=== PATIENT | female | born 1980 | race Caucasian/White ===

== ENCOUNTER 2017-01-22 00:07 | Emergency (ER) | payer OTHER ==
[~2017-01-22] VITALS: Ht 157.5 cm; Wt 113.4 kg
[2017-01-22] MEDS ORDERED: POTASSIUM CITRA5 MEQ PO (00:28)
[2017-01-22] MEDS ORDERED: PERCOCET 5-3251 EACH PO (00:29)
[2017-01-22] MEDS ORDERED: CIPRO500 MG PO (00:29)
[2017-01-22] MEDS ORDERED: ZOFRAN ODT4 MG SL (00:46)
== END 2017-01-22 00:52 | disposition home or self-care (01) ==
LOC: ED 00:07
DX: R11.2 Nausea with vomiting, unspecified (principal); F41.9 Anxiety disorder, unspecified; F43.10 Post-traumatic stress disorder, unspecified; Z88.1 Allergy status to other antibiotic agents; Z79.899 Other long term (current) drug therapy
CPT/HCPCS: 99283

== ENCOUNTER 2017-04-07 19:42 | Emergency (ER) | payer OTHER ==
[~2017-04-07] VITALS: Ht 157.5 cm; Wt 113.4 kg
[~2017-04-07 19:42] MED LIST: CIPRO500 MG PO; PERCOCET 5-3251 EACH PO; POTASSIUM CITRA5 MEQ PO; ZOFRAN ODT4 MG SL
[2017-04-07] MEDS ORDERED: ALPRAZOLAM1 MG PO (20:26)
== END 2017-04-07 20:51 | disposition home or self-care (01) ==
LOC: ED 19:42
DX: S60.221A Contusion of right hand, initial encounter (principal); Z88.1 Allergy status to other antibiotic agents; W22.01XA Walked into wall, initial encounter
CPT/HCPCS: 73130; 99283

== ENCOUNTER 2017-08-13 11:32 | Emergency (ER) | payer OTHER ==
[~2017-08-13] VITALS: Ht 157.5 cm; Wt 113.4 kg
[~2017-08-13 11:32] MED LIST changes: +ALPRAZOLAM1 MG PO
--- NOTE | 2017-08-13 21:50 | EKG ---
[facility] [address] [place], [place] [address] Signed Normal sinus rhythm Minimal voltage criteria for LVH, may be normal variant Borderline ECG No previous ECGs available Confirmed by MARY BENNETT MD ([id number]) on 08/13/2017 9:50:00 PM Electronically Signed By: MARY BENNETT MD 08/13/17 2150 PATIENT NAME: JEFF ALICEA ILIA Electrocardiogram DATE OF : 78 PHYSICIAN: MARY BENNETT MD REPORT #: [id number] REPORT IS CONFIDENTIAL AND NOT TO BE RELEASED WITHOUT AUTHORIZATION
== END 2017-08-13 14:57 | disposition home or self-care (01) ==
LOC: ED 11:32
DX: E83.52 Hypercalcemia (principal); F43.10 Post-traumatic stress disorder, unspecified; F41.9 Anxiety disorder, unspecified; Z88.1 Allergy status to other antibiotic agents
CPT/HCPCS: 36415; 80053; 81001; 83880; 85025; 87088; 93005; 93010; 99283

== ENCOUNTER 2018-03-21 18:03 | Emergency (ER) | payer OTHER ==
[~2018-03-21] VITALS: Ht 157.5 cm; Wt 104.8 kg
[2018-03-21] MEDS ORDERED: AMOXICILLIN500 MG PO (18:22)
[2018-03-21] MEDS ORDERED: BACTRIM DS TAB1 EACH PO (19:23)
== END 2018-03-21 19:38 | disposition home or self-care (01) ==
LOC: ED 18:03
DX: L03.116 Cellulitis of left lower limb (principal); F41.9 Anxiety disorder, unspecified; F43.10 Post-traumatic stress disorder, unspecified; Z87.442 Personal history of urinary calculi; Z88.1 Allergy status to other antibiotic agents
CPT/HCPCS: 99282

== ENCOUNTER 2019-08-05 08:16 | Emergency (ER) | payer OTHER ==
[~2019-08-05] VITALS: Ht 157.5 cm; Wt 104.8 kg
--- OUTSIDE RECORDS SUMMARY | ~2019-08-05 | XMS | Encounter Summary ---
Demographics + + + | Address | [address] | | | [place] [address] | + + + | Home Phone | | + + + | Preferred Language | Unknown | + + + | Marital Status | Single | + + + | Religion Affiliation | 1013 | + + + | Race | Unknown | + + + | Ethnic Group | Unknown | + + + Author + + + | Author | [facility] | | | and [place] | + + + | Organization | [facility] | | | and [place] | + + + | Address | Unknown | + + + | Phone | Unavailable | + + + Support + + +---------+ + | Name | Relationship | Address | Phone | + + +---------+ + | Maribel Patel | ECON | Unknown | | + + +---------+ + | Leda Sanchez | ECON | Unknown | | + + +---------+ + | Maribel Patel | ECON | Unknown | | + + +---------+ + Care Team Providers + +------+ + | Care Charge Account Clerk Name | Role | Phone | + +------+ + | Chris De La Torre MD | PCP | | + +------+ + Reason for Visit + + + | Reason | Comments | + + + | Appointment | | + + + Encounter Details +--------+ + + + + | Date | Type | Department | Care Team | Description | +--------+ + + + + | 03/16/ | Telephone | [facility] | Jerrell Hightower | Appointment | | 2019 | | [address] | MD [place] [address] | | | | | [place] | [place] | | | | | [address] | [id number] | | | | | [phone] | | | +--------+ + + + + Social History + + + +--------+ + | Tobacco Use | Types | Packs/Day | Years | Date | | | | | Used | | + + + +--------+ + | Former Smoker | Cigarettes | 0.1 | 6 | Quit: 2013 | + + + +--------+ + + +---+---+---+ | Smokeless Tobacco: | | | | | Never Used | | | | + +---+---+---+ + + +---------+ + | Alcohol Use | Drinks/Week | oz/Week | Comments | + + +---------+ + | Yes | | | 2 beers a year | + + +---------+ + + + + | Sex Assigned at | Date Recorded | | | | + + + | Not on file | | + + + + + + + | Job Start Date | Occupation | Industry | + + + + | Not on file | Not on file | Not on file | + + + + + + + + | Travel History | Travel Start | Travel End | + + + + + + | No recent travel history available. | + + documented as of this encounter Plan of Treatment Not on filedocumented as of this encounter Visit Diagnoses Not on filedocumented in this encounter"
--- OUTSIDE RECORDS SUMMARY | ~2019-08-05 | XMS | Encounter Summary ---
Demographics + + + | Address | [address] | | | [place] [address] | + + + | Home Phone | | + + + | Preferred Language | Unknown | + + + | Marital Status | Single | + + + | Amish Affiliation | 1013 | + + + | Race | Unknown | + + + | Ethnic Group | Unknown | + + + Author + + + | Author | [facility] | | | and [place] | + + + | Organization | [facility] | | | [...] Team Providers + +------+ + | Care Polysomnograph Tech Name | Role | Phone | + +------+ + | Chris De La Torre MD | PCP | | + +------+ + Encounter Details +--------+ + + + + | Date | Type | Department | Care Team | Description | +--------+ + + + + | 11/20/ | Episode | [facility] | Glendy Sahu | | | 2017 | Changes | [address] | | | | | [place] | | | | | | [address] | | | | | | [phone] | | | +--------+ + + + + Social History + +-------+ +--------+ + | Tobacco Use | Types | Packs/Day | Years | Date | | | | | Used | | + +-------+ +--------+ + | Former Smoker | | | | Quit: 2013 | + +-------+ +--------+ + + +---+---+---+ | Smokeless Tobacco: | | | | | Never Used | | | | + +---+---+---+ + + +---------+ + | Alcohol Use | Drinks/Week | oz/Week | Comments | + + +---------+ + | Yes | 2 Cans of beer | 2.0 | socially | + + +---------+ + + + [...]
--- OUTSIDE RECORDS SUMMARY | ~2019-08-05 | XMS | Encounter Summary ---
Demographics + + + | Address | [address] | | | [place] [address] | + + + | Home Phone | | + + + | Preferred Language | Unknown | + + + | Marital Status | Single | + + + | Adventist Affiliation | 1013 | + + + | Race | Unknown | + + + | Ethnic Group | Unknown | + + + Author + + + | Author | [facility] | | | and [place] | + + + | Organization | [facility] | | | [...] Team Providers + +------+ + | Care Court Interpreter Name | Role | Phone | + +------+ + PCP | Unavailable | + +------+ + Encounter Details +--------+ + + + + | Date | Type | Department | Care Team | Description | +--------+ + + + + | 09/19/ | Hospital | [facility] | ShelbyDevang | Primary | | 2018 | Encounter | [facility] | MD Sarah [address] | hyperparathyroidism | | | | [address] | [address] | ([facility]) | | | | [place], [place] | [place] [address] | | | | | [address] | [phone] | | | | | [phone] | | | +--------+ + + + + Social History + +-------+ +--------+------+ | Tobacco Use | Types | Packs/Day | Years | Date | | | | | Used | | + +-------+ +--------+------+ | Never Assessed | | | | | + +-------+ +--------+------+ + + + | Sex Assigned at [...] + + documented as of this encounter Last Filed Vital Signs + + + + + | Vital Sign | Reading | Time Taken | Comments | + + + + + | Blood Pressure | 111/75 | 09/19/2017 4:28 PM | | | | | PDT | | + + + + + | Pulse | 71 | 09/19/2017 4:28 PM | | | | | PDT | | + + + + + | Temperature | 36.4 C (97.5 F) | 09/19/2017 4:28 PM | | | | | PDT | | + + + + + | Respiratory Rate | 14 | 09/19/2017 4:28 PM | | | | | PDT | | + + + + + | Oxygen Saturation | - | - | | + + + + + | Inhaled Oxygen | - | - | | | Concentration | | | | + + + + + | Weight | 105.4 kg (232 lb 5.9 | 09/19/2017 4:28 PM | | | | oz) | PDT | | + + + + + | Height | 157.5 cm (5' 2") | 09/19/2017 4:28 PM | | | | | PDT | | + + + + + | Body Mass Index | 42.5 | 09/19/2017 4:28 PM | | | | | PDT | | + + + + + documented in this encounter Medications at Time of Discharge + + + +---------+ + + | Medication | Sig | Dispensed | Refills | Start | End Date | | | | | | Date | | + + + +---------+ + + | | TAKE ONE TABLET BY | | 0 | 09/20/19 | | | HYDROcodone-acetamin | MOUTH EVERY 6 HOURS | | | 18 | 9 | | ophen (NORCO) | NEEDED FOR PAIN | | | | | | 7.5-325 mg per | | | | | | | tablet | | | | | | + + + +---------+ + + documented as of this encounter Progress Notes Conversion Transaction, Provider Unknown - 09/19/2017 4:27 PM PDTFormatting of this note m ight be different from the original. Nurse Progress Note by Ana Jon RN at 09/19/171626 Author: Ana Jon RN Service: (none) Author Type: Registered Nurse Filed: 09/19/178 Date of Service: 09/19/171626 Status: Signed Salesperson [employer]: Ana Jon RN (Registered Nurse) Discharge instructions, including signs and symptoms of surgical site infection, discussed with patient and sister. Prescriptions given and side effects explained (faxed to RX pharmac y to be picked up). Patient and family state understanding. No further questions. Vital s igns stable. Discharged per order. Ana Jon RN 09/19/2017 4:28 PM onver harris Transaction, Provider Unknown - 09/19/2017 3:51 PM PDT Progress Notes by Palak Reynaga RPH at 09/19/17 249 Author: Palak Reynaga RPH Service: Pharmacy Author Type: Pharmacist Filed: 09/19/171550 Date of Service: 09/19/171550 Status: Signed Salesperson [employer]: Palak Reynaga RPH (Pharmacist) Clinical Pharmacy Note: Renal Monitoring Mariela Avalos Medabalime 37 y.o. female Ht Readings from Last 1 Encounters: 09/19/17 1.575 m (5' 2") Wt Readings from Last 1 Encounters: 09/19/17 105.4 kg (232 lb 5.8 oz) Serum creatinine: 0.99 mg/dL 09/19/17 1110 Estimated creatinine clearance: 87.8 mL/min Pharmacy dosing for renal function per Dr. Shelby. Currently, there are no medications needing to be adjusted. Pharmacy will continue to monit or for changes in medication orders and in renal function and adjust accordingly. Palak Reynaga PharmD 09/19/2017 3:50 PM docume nted in this encounter Plan of Treatment Not on filedocumented as of this encounter Procedures + +--------+ + + + | Procedure Name | Priori | Date/Time | Associated Diagnosis | Comments | | | ty | | | | + +--------+ + + + | EXTERNAL LAB: NICA | Routin | 09/19/2017 | | Results for this | | INTACT | e | 2:37 PM | | procedure are in the | | | | PDT | | results section. | + +--------+ + + + | NM RADIOPHARM INJ | Routin | 09/19/2017 | | Results for this | | NON IMAGING | e | 12:26 PM | | procedure are in the | | | | PDT | | results section. | + +--------+ + + + | EXTERNAL LAB: NICA | Routin | 09/19/2017 | | Results for this | | INTACT | e | 11:10 AM | | procedure are in the | | | | PDT | | results section. | + +--------+ + + + | BASIC METABOLIC | Routin | 09/19/2017 | | Results for this | | PANEL | e | 11:10 AM | | procedure are in the | | | | PDT | | results section. | + +--------+ + + + | TISSUE REQUEST FOR | Routin | 09/19/2017 | | Results for this | | PATHOLOGY (NON-ORD) | e | 12:00 AM | | procedure are in the | | | | PDT | | results section. | + +--------+ + + + documented in this encounter Results External Lab: PTH, Intact (09/19/2017 2:37 PM PDT) + + + + + + | Component | Value | Ref Range | Performed | Pathologist | | | | | At | Signature | + + + + + + | PTH Intact | 25.2Comment: RESULTS | 8.7 - 79.6 | EXTERNAL | | | | CALLED TO TOÑA OR | pg/mL | LAB | | | | 1510T,JBREAD BACK | | | | | | RESULTS VERIFIEDTesting | | | | | | performed at [facility];[address] | | | | | | [address];[place] | | | | | | [id number] | | | | + + + + + + + + | Specimen | + + | | + + + +---------+ + + | Performing | Address | City/State/Zipcode | Phone Number | | Organization | | | | + +---------+ + + | EXTERNAL LAB | | | | + +---------+ + + NM Radiopharm Inj Non Imaging (09/19/2017 12:26 PM PDT) + + | Specimen | + + | | + + + + + | Impressions | Performed At | + + + | Status post parathyroid injection. Read by Jericho Mims MD on | | | 09/22/2017 7:24 AM Electronically signed by Jericho Mims MD on | | | 09/22/2017 7:27 AM | | + + + + + + | Narrative | Performed At | + + + | NUCLEAR MEDICINE PARATHYROID M[facility]P 09/19/2017 HISTORY | | | Parathyroid adenoma. DESCRIPTION OF PROCEDURE After proper | | | patient identification was performed, 11.2 mCi of Technetium | | | cardiolite was injected intravenously. No imaging was obtained per | | | physician request. | | + + + + + | Procedure Note | + + | Huang, Rad Conversion - 10/21/2018 9:58 AM PDT NUCLEAR MEDICINE PARATHYROID [facility] | | 09/19/2017 HISTORYParathyroid adenoma. DESCRIPTION OF PROCEDUREAfter proper patient | | identification was performed, 11.2 mCi of Technetium cardiolite was injected | | intravenously. No imaging was obtained per physician request. IMPRESSION: Status post | | parathyroid injection. Read by Jericho Mims MD on 09/22/2017 7:24 AM Electronically | | signed by Jericho Mims MD on 09/22/2017 7:27 AM | |After proper patient identification was performed, 11.2 mCi of Technetium cardiolite was in jected intravenously. No imaging was obtained per physician request. | | | |IMPRESSION: | |Status post parathyroid injection. | | | |Read by Jericho Mims MD on 09/22/2017 7:24 AM | | | | | + + External Lab: PTH, Intact (09/19/2017 11:10 AM PDT) + + + + + + | Component | Value | Ref Range | Performed | Pathologist | | | | | At | Signature | + + + + + + | PTH Intact | 179.4 (H)Comment: | 8.7 - 79.6 | EXTERNAL | | | | RESULTS CALLED TO HEATHER | pg/mL | LAB | | | | PPOP 1142T,JBREAD BACK | | | | | | RESULTS VERIFIEDTesting | | | | | | performed at [facility];[address] | | | | | | [address];[place] | | | | | | [address] | | | | + + + + + + + + | Specimen | + + | | + + + +---------+ + + | Performing | Address | City/State/Zipcode | Phone Number | | Organization | | | | + +---------+ + + | EXTERNAL LAB | | | | + +---------+ + + Basic Metabolic Panel (09/19/2017 11:10 AM PDT) + + + + + + | Component | Value | Ref Range | Performed | Pathologist | | | | | At | Signature | + + + + + + | Na | 138 | 135 - 145 | EXTERNAL | | | | | mmol/L | LAB | | + + + + + + | K | 4.2 | 3.5 - 4.9 | EXTERNAL | | | | | mmol/L | LAB | | + + + + + + | Cl | 106 | 99 - 109 mmol/L | EXTERNAL | | | | | | LAB | | + + + + + + | CO2 | 24 | 23 - 32 mmol/L | EXTERNAL | | | | | | LAB | | + + + + + + | Anion Gap | 12 | 5 - 20 mmol/L | EXTERNAL | | | | | | LAB | | + + + + + + | Glucose, | 88 | 65 - 99 mg/dL | EXTERNAL | | | Fasting | | | LAB | | + + + + + + | BUN | 10 | 8 - 25 mg/dL | EXTERNAL | | | | | | LAB | | + + + + + + | Creatinine | 0.99 | 0.50 - 1.00 | EXTERNAL | | | | | mg/dL | LAB | | + + + + + + | BUN/Creatin | 10 | | EXTERNAL | | | ine Ratio | | | LAB | | + + + + + + | Calcium | 10.8 (H) | 8.5 - 10.5 | EXTERNAL | | | | | mg/dL | LAB | | + + + + + + | Estimated | >60Comment: GFR <60: | mL/min/1.73m2 | EXTERNAL | | | GFR | CHRONIC KIDNEY DISEASE, | | LAB | | | | IF FOUND OVER A 3 MONTH | | | | | | PERIOD.GFR <15: KIDNEY | | | | | | FAILURE.FOR | | | | | | AMERICANS, MULTIPLY THE | | | | | | CALCULATED GFR BY | | | | | | 1.210.This eGFR is | | | | | | calculated using the | | | | | | MDRD IDAK traceable | | | | | | equation.Testing | | | | | | performed at [facility];[address] | | | | | | [facility];[place], [place] | | | | | | [address] | | | | + + + + + + + + | Specimen | + + | Blood specimen | | (specimen) | + + + +---------+ + + | Performing | Address | City/State/Zipcode | Phone Number | | Organization | | | | + +---------+ + + | EXTERNAL LAB | | | | + +---------+ + + Tissue Request For Pathology (09/19/2017 12:00 AM PDT) + + | Specimen | + + | Soft tissue sample | | (specimen) | + + + + + | Narrative | Performed At | + + + | SPECIMEN(S): A Rt. INFERIOR PARATHYROID ADENOMA SPECIMEN SOURCE: | EXTERNAL LAB | | A. Rt. INFERIOR PARATHYROID ADENOMA CLINICAL HISTORY: 09/19/2017. | | | Primary hyperparathyroidism FINAL PATHOLOGIC DIAGNOSIS: A. | | | Parathyroid adenoma, right inferior, excision: - Cellular | | | parathyroid tissue (0.76 grams). - See comment. COMMENT: In | | | an appropriate clinical scenario, this may represent parathyroid | | | adenoma. Correlation with clinical and laboratory studies is | | | recommended. The frozen section interpretation is confirmed by the | | | final diagnosis. LY:emb:C2NR GROSS DESCRIPTION: The specimen is | | | received fresh labeled with the patient's name and designated "right | | | inferior parathyroid adenoma" and consists of a 0.76 gram, 1.7 x 1.1 x | | | 0.6 cm red-brown nodule with minimal attached hurley-yellow and | | | lobulated adipose tissue, entirely submitted in (FSA1) frozen portion; | | | (A2) remainder of specimen. AM:emb FROZEN SECTION DATE AND TIME: | | | 09/19/2017 at 1435 H. REPORTED TO: Dr. Richardson REPORTED BY: | | | Tano FROZEN DIAGNOSIS: (FSA1) Parathyroid. (BES) MICROSCOPIC | | | EXAMINATION: Histologic sections of all submitted blocks are examined | | | by light microscopy. These findings, together with the gross | | | examination, support the pathologic diagnosis. PERFORMING LABORATORY: | | | Professional interpretation and technical preparation was performed | | | by [email or web address], [facility], [address] [place] [address]., | | | [place] [address] (Toys Inspector: Bud Freedman M.D.; | | | [facility]#: [id number]). Diagnostician: Phyllis Bolanos MD Pathologist | | | Electronically Signed 09/23/2017 | | + + + + +---------+ + + | Performing | Address | City/State/Zipcode | Phone Number | | Organization | | | | + +---------+ + + | EXTERNAL LAB | | | | + +---------+ + + documented in this encounter Visit Diagnoses + + | Diagnosis | + + | Primary hyperparathyroidism (HCC) Primary hyperparathyroidism | + + documented in this encounter
--- OUTSIDE RECORDS SUMMARY | ~2019-08-05 | XMS | Encounter Summary ---
Demographics + + + | Address | [address] | | | [place] [address] | + + + | Home Phone | | + + + | Preferred Language | Unknown | + + + | Marital Status | Single | + + + | Moravian Affiliation | 1013 | + + + | Race | Unknown | + + + | Ethnic Group | Unknown | + + + Author + + + | Author | [facility] | | | and [place] | + + + | Organization | [facility] | | | [...] Team Providers + +------+ + | Care Lawyer Name | Role | Phone | + +------+ + | Chris De La Torre MD | PCP | | + +------+ + Encounter Details +--------+ + + + + | Date | Type | Department | Care Team | Description | +--------+ + + + + | 12/15/ | Orders Only | [facility] | Jerrell Hightower | Right kidney stone | | 2018 | | [address] | MD [address] [address] | (Primary Dx) | | | | [place] | [place] | | | | | [address] | [address] | | | | | [phone] | | | +--------+ + + + + Social History + +-------+ +--------+ + | Tobacco Use | Types | Packs/Day | Years | Date | | | | | Used | | + +-------+ +--------+ + | Former Smoker | | | | Quit: 2014 | + +-------+ +--------+ + + +---+---+---+ [...] documented as of this encounter Progress Notes Glendy Sahu RN - 12/15/2017 5:26 PM PDTTalked to Je Diana in Imaging. Changed order to US unlisted procedure. (Dr Méndez is agreeable to performing this procedure for Dr Hightower in the OR. Scheduled for 8AM. He will need assistance from environmental field services technician. )Ultrasound guided percutaneous nephrostomy. Glendy Grady RN - 12/15/2017 5:26 PM PDTOrders entered aft er talking to Dr Méndez. He requested Dr Hightower order US guided percutaneous nephrostomy . Not an option in [facility] so US guided renal biopsy ordered and noted in comments it's for a p ercutaneous nephrostomy. P M PDTdocumented in this encounter Plan of Treatment Not on filedocumented as of this encounter Results US Unlisted Procedure (12/25/2017 12:35 PM PDT) + + | Specimen | + + | | + + + + + | Narrative | Performed At | + + + | US UNLISTED PROCEDURE 12/25/2017 10:00 AM HISTORY: Ultrasound | [facility] | | guided percutaneous nephrostomy. COMPARISON: 11/19/2017. | | | PROTOCOL: Informed consent was obtained by Dr. Hightower prior to | | | the procedure. Patient was under general anesthesia. The patient was | | | placed in the prone position. This area was cleansed and draped in | | | the usual sterile fashion. Dr. Hightower first placed a right-sided | | | ureteral occlusion balloon to distend the renal collecting system. | | | Under sonographic guidance, the upper pole of the left kidney was | | | localized. A small skin angela was made. Using a 18G 15 cm long needle, | | | the left renal collecting system was accessed. The stiffener was | | | removed and a Gifts that Give 0.035 wire was advanced through the needle into | | | the right renal collecting system. The needle were then removed. A | | | single plastic sheath dilator was inserted. 10 cc of 50/50 | | | Omnipaque contrast was injected to confirm positioning. Aspiration of | | | the catheter showed urine. The wire and catheter were subsequently | | | removed. The wire and catheter were were not left and as the approach | | | was considered too central into the pelvis and this was felt to be in | | | for an inadequate position for the purposes of the lithotripsy. The | | | patient tolerated the procedure well. Post procedure ultrasound | | | imaging showed a small to moderate perinephric hematoma. Vital signs | | | were monitored and were stable. IMPRESSION - Ultrasound guided | | | percutaneous nephrostomy access for lithotripsy of the right | | | kidney. Procedure was extremely difficult due to intercostal | | | approach and the large body habitus of the patient. This severely | | | limited visualization of the right kidney. Multiple separate | | | introducer needles were utilized as well as multiple approach angles | | | to attempt to access the upper outer pole of the left kidney. 8 | | | extensive use of fluoroscopy as well as video fluoroscopy through the | | | ureteral caliber were utilized to aid in this procedure which lasted | | | for many hours with the patient under general anesthesia. Please | | | add code 22 complex procedure for billing purposes. Dictated and | | | Signed by: Mike Méndez MD Electronically signed: 12/26/2017 | | | 3:50 PM | | + + + + + | Procedure Note | + + | Huang, Rad Results In - 12/26/2017 3:53 PM PDT US UNLISTED PROCEDURE 12/25/2017 10:00 | | AMHISTORY: Ultrasound guided percutaneous nephrostomy.COMPARISON: 11/19/2017.PROTOCOL: | | Informed consent was obtained by Dr. Hightower prior to the procedure. Patientwas under | | general anesthesia. The patient was placed in the prone position. Thisarea was cleansed | | and draped in the usual sterile fashion. Dr. Hightower firstplaced a right-sided | | ureteral occlusion balloon to distend the renal collectingsystem. Under sonographic | | guidance, the upper pole of the left kidney waslocalized. A small skin angela was made. | | Using a 18G 15 cm long needle, the leftrenal collecting system was accessed. The | | stiffener was removed and a Bentson0.035 wire was advanced through the needle into the | | right renal collectingsystem. The needle were then removed. A single plastic sheath | | dilator wasinserted. 10 cc of 50/50 Omnipaque contrast was injected to | | confirmpositioning. Aspiration of the catheter showed urine. The wire and catheter | | weresubsequently removed. The wire and catheter were were not left and as theapproach | | was considered too central into the pelvis and this was felt to be infor an inadequate | | position for the purposes of the lithotripsy. The patienttolerated the procedure well. | | Post procedure ultrasound imaging showed a smallto moderate perinephric hematoma. Vital | | signs were monitored and were stable.IMPRESSION -Ultrasound guided percutaneous | | nephrostomy access for lithotripsy of the rightkidney.Procedure was extremely difficult | | due to intercostal approach and the large bodyhabitus of the patient. This severely | | limited visualization of the right kidney.Multiple separate introducer needles were | | utilized as well as multiple approachangles to attempt to access the upper outer pole of | | the left kidney. 8 extensiveuse of fluoroscopy as well as video fluoroscopy through the | | ureteral caliberwere utilized to aid in this procedure which lasted for many hours with | | thepatient under general anesthesia.Please add code 22 complex procedure for billing | | purposes.Dictated and Signed by: Mike Méndez MD Electronically signed: 12/26/2017 | | 3:50 PM | |kidney. | | | |Procedure was extremely difficult due to intercostal approach and the large body | |habitus of the patient. This severely limited visualization of the right kidney. | |Multiple separate introducer needles were utilized as well as multiple approach | |angles to attempt to access the upper outer pole of the left kidney. 8 extensive | |use of fluoroscopy as well as video fluoroscopy through the ureteral caliber | |were utilized to aid in this procedure which lasted for many hours with the | |patient under general anesthesia. | | | |Please add code 22 complex procedure for billing purposes. | | | |Dictated and Signed by: Mike Méndez MD | | Electronically signed: 12/26/2017 3:50 PM | + + + +---------+ + + | Performing | Address | City/State/[facility] | Phone Number | | Organization | | | | + +---------+ + + | [facility] | | | | + +---------+ + + documented in this encounter Visit Diagnoses + + | Diagnosis | + + | Right kidney stone - Primary Calculus of kidney | + + documented in this encounter"
--- OUTSIDE RECORDS SUMMARY | ~2019-08-05 | XMS | Encounter Summary ---
Demographics + + + | Address | [address] | | | [place] [address] | + + + | Home Phone | | + + + | Preferred Language | Unknown | + + + | Marital Status | Single | + + + | Confucianist Affiliation | [id number] | + + + | Race | Unknown | + + + | Ethnic Group | Unknown | + + + Author + + + | Author | [facility] | | | and [place] | + + + | Organization | [facility] | | | and [...] Team Providers + +------+ + | Care Finish Saw Operator Name | Role | Phone | + +------+ + | Chris De La Torre MD | PCP | | + +------+ + Reason for Visit + + + | Reason | Comments | + + + | Fever | | + + + | Hematuria | | + + + | Urinary Frequency | | + + + Encounter Details +--------+ + + + + | Date | Type | Department | Care Team | Description | +--------+ + + + + | 11/26/ | Clinical | [facility] | Jerrell Hightower | Abnormal urinalysis | | 2018 | Support | [address] | [place] [address] | (Primary Dx) | | | | [place] | [place] | | | | | [address] | [id number] | | | | | [phone] | | | +--------+ + + + [...] encounter Progress Notes Glendy Sahu RN - 11/26/2017 10:15 AM PDTPatient presents to office with complaints of fever, gross hematuria and urinary frequency. Urine dip positive for blood and leukocytes . Urine specimen sent to [facility] lab for microscopic urinalysis and culture if indicated...... ......................................Glendy Sahu RN on 11/26/17 at 11:15 documented in this encounter Plan of Treatment Not on filedocumented as of this encounter Procedures + +--------+ + + + | Procedure Name | Priori | Date/Time | Associated Diagnosis | Comments | | | ty | | | | + +--------+ + + + | URINALYSIS, | Routin | 11/26/2017 | Abnormal | Results for this | | MICROSCOPIC ONLY, | e | 10:51 AM | urinalysis | procedure are in the | | WITH CULTURE IF | | PDT | | results section. | | INDICATED | | | | | + +--------+ + + + | POCT URINALYSIS, | Routin | 11/26/2017 | Abnormal | Results for this | | AUTO WITH CONF | e | 10:51 AM | urinalysis | procedure are in the | | | | PDT | | results section. | + +--------+ + + + | CULTURE, URINE | Routin | 11/26/2017 | Abnormal | Results for this | | | e | 10:51 AM | urinalysis | procedure are in the | | | | PDT | | results section. | + +--------+ + + + documented in this encounter Results Culture, Urine (11/26/2017 10:51 AM PDT) + + + + + + | Component | Value | Ref Range | Performed | Pathologist | | | | | At | Signature | + + + + + + | Culture | No Growth | | [facility] | | | | | | [facility] | | | | | | [facility] | | | | | | [facility] - | | | | | | LABORATORY | | + + + + + + + + | Specimen | + + | Urine - Urine | | specimen obtained by | | clean catch | | procedure (specimen) | + + + + + + + | Performing | Address | City/State/Zipcode | Phone Number | | Organization | | | | + + + + + | [facility] | [address] | [place] | [phone] | | [facility] | | [address] | | | - LABORATORY | | | | + + + + + Urinalysis, Microscopic Only, with Culture if Indicated (11/26/2017 10:51 AM PDT) + + + + + + | Component | Value | Ref Range | Performed | Pathologist | | | | | At | Signature | + + + + + + | White Blood | 25-50 (A) | 0 - 2 /HPF | [facility] | | | Cells, | | | [facility] | | | Urine | | | MEDICAL | | | | | | CENTER - | | | | | | LABORATORY | | + + + + + + | Red Blood | 50-100 (A) | 0 - 2 /HPF | [facility] | | | Cells, | | | [facility] | | | Urine | | | MEDICAL | | | | | | CENTER - | | | | | | LABORATORY | | + + + + + + | Squamous | 0-2 | 0 - 2 /LPF | [facility] | | | Epithelial | | | [facility] | | | Cells, | | | MEDICAL | | | Urine | | | CENTER - | | | | | | LABORATORY | | + + + + + + | Bacteria, | 1+ (A) | Negative /HPF | [facility] | | | Urine | | | [facility] | | | | | | MEDICAL | | | | | | CENTER - | | | | | | LABORATORY | | + + + + + + | Mucus, | Present (A) | Negative /LPF | [facility] | | | Urine | | | [facility] | | | | | | MEDICAL | | | | | | CENTER - | | | | | | LABORATORY | | + + + + + + | Urine | Urine Culture Set Up | | [facility] | | | Comment | | | [facility] | | | | | | MEDICAL | | | | | | CENTER - | | | | | | LABORATORY | | + + + + + + + + | Specimen | + + | Urine - Urine | | specimen obtained by | | clean catch | | procedure (specimen) | + + + + + + + | Performing | Address | City/State/Zipcode | Phone Number | | Organization | | | | + + + + + | [facility] | [address] | [place] | [phone] | | [facility] | | [address] | | | - LABORATORY | | | | + + + + + POCT Urinalysis Dipstick Automated (11/26/2017 10:51 AM PDT) + + + + + + | Component | Value | Ref Range | Performed | Pathologist | | | | | At | Signature | + + + + + + | Color, UA, | Donna (A) | Yellow, Light | | | | POC | | Yellow | | | + + + + + + | Clarity, | Cloudy | | | | | UA, POC | | | | | + + + + + + | Glucose, | Negative | Negative | | | | UA, POC | | | | | + + + + + + | Bilirubin, | Negative | Negative | | | | UA, POC | | | | | + + + + + + | Ketones, | Negative | Negative, 100 | | | | UA, POC | | mg/dL | | | + + + + + + | Specific | 1.020 | 1.001 - 1.030 | | | | [place], | | | | | | UA, POC | | | | | + + + + + + | Blood, UA, | Large (A) | Negative | | | | POC | | | | | + + + + + + | pH, UA, POC | 7.0 | 5.0, 6.0, 7.0, | | | | | | 8.0, 5.5, 6.5, | | | | | | 7.5 | | | + + + + + + | Protein, | 30 mg/dL (A) | Negative | | | | UA, POC | | | | | + + + + + + | Urobilinoge | 0.2 | 0.2, Negative, | | | | n, UA, POC | | Normal, < 0.2 | | | | | | mg/dL, 1 mg/dL, | | | | | | < 0.2 E.U./dl, | | | | | | 1.0 E.U./dL, | | | | | | 0.2 mg/dL | | | + + + + + + | Nitrite, | Negative | Negative | | | | UA, POC | | | | | + + + + + + | Leukocyte | Small (A) | Negative | | | | Esterase, | | | | | | UA, POC | | | | | + + + + + + | Reducing | | | | | | Substances, | | | | | | Urine | | | | | + + + + + + | Bilirubin | | Negative | | | | Confirmatio | | | | | | n by | | | | | | Ictotest, | | | | | | Urine | | | | | + + + + + + | Remark | | | | | + + + + + + + + | Specimen | + + | Urine | + + documented in this encounter Visit Diagnoses + + | Diagnosis | + + | Abnormal urinalysis - Primary Other nonspecific finding on examination of urine | + + documented in this encounter"
--- OUTSIDE RECORDS SUMMARY | ~2019-08-05 | XMS | Encounter Summary ---
Demographics + + + | Address | [address] | | | [place] [address] | + + + | Home Phone | | + + + | Preferred Language | Unknown | + + + | Marital Status | Single | + + + | Yazidism Affiliation | 1013 | + + + | Race | Unknown | + + + | Ethnic Group | Unknown | + + + Author + + + | Author | [facility] | | | and [place] | + + + | Organization | [facility] | | | and [...] Team Providers + +------+ + | Care Wire Brusher Name | Role | Phone | + +------+ + | Chris De La Torre MD | PCP | | + +------+ + Reason for Visit + + + | Reason | Comments | + + + | Lab Order | | + + + Encounter Details +--------+ + + + + | Date | Type | Department | Care Team | Description | +--------+ + + + + | 02/03/ | Telephone | [facility] | Jerrell Hightower | Lab Order | | 2017 | | [address] | [place] [address] | | | | | [place] | [place] | | | | | [address] | [address] | | | | | [phone] | | | +--------+ + + + [...] as of this encounter Plan of Treatment + +------+--------+ + + | Name | Type | Priori | Associated Diagnoses | Order Schedule | | | | ty | | | + +------+--------+ + + | Parathyroid Hormone, | Lab | Routin | Kidney stones | Expected: 02/10/2018 | | Intact | | e | | (Approximate), | | | | | | Expires: 02/03/2019 | + +------+--------+ + + | Uric Acid | Lab | Routin | Kidney stones | Expected: | | | | e | | 02/10/2018, Expires: | | | | | | 02/03/2019 | + +------+--------+ + + documented as of this encounter Visit Diagnoses + + | Diagnosis | + + | Kidney stones - Primary Calculus of kidney | + + documented in this encounter"
--- OUTSIDE RECORDS SUMMARY | ~2019-08-05 | XMS | Encounter Summary ---
Demographics + + + | Address | [address] | | | [place] [address] | + + + | Home Phone | | + + + | Preferred Language | Unknown | + + + | Marital Status | Single | + + + | Sikh Affiliation | 1013 | + + + | Race | Unknown | + + + | Ethnic Group | Unknown | + + + Author + + + | Author | [facility] | | | and [place] | + + + | Organization | [facility] | | | and [...] Team Providers + +------+ + | Care Strategic Marketing Associate Name | Role | Phone | + +------+ + | Chris De La Torre MD | PCP | | + +------+ + Reason for Visit Auth/Cert +--------+--------+ + + + + | Status | Reason | Specialty | Diagnoses / | Referred By | Referred To | | | | | Procedures | Contact | Contact | +--------+--------+ + + + + | | | | Diagnoses | | | | | | | Right | | | | | | | kidney stone | | | | | | | (N20.0) | | | | | | | Procedures | | | | | | | CT | | | | | | | CYSTO/URETER | | | | | | | O | | | | | | | W/LITHOTRIPS | | | | | | | Y &LALY | | | | | | | STENT INSRT | | | | | | | RIGHT | | | | | | | URETEROSCOPY | | | | | | | , LASER | | | | | | | LITHOTRIPSY | | | | | | | AND STENT | | | +--------+--------+ + + + + Encounter Details +--------+ + + + + | Date | Type | Department | Care Team | Description | +--------+ + + + + | 01/19/ | Hospital | [facility] | Jerrell Hightower | Kidney stone | | 2018 | Encounter | [facility] | MD [address] | | | | | [address] | [address] [place], [place] | | | | | [place] | [address] | | | | | [address] | | | | | | [phone] | | | +--------+ + + + [...] + + + | Blood Pressure | 119/63 | 01/19/2018 6:30 PM | | | | | PST | | + + + + + | Pulse | 62 | 01/19/2018 6:30 PM | | | | | PST | | + + + + + | Temperature | 36.6 C (97.9 F) | 01/19/2018 5:28 PM | | | | | PST | | + + + + + | Respiratory Rate | 18 | 01/19/2018 6:30 PM | | | | | PST | | + + + + + | Oxygen Saturation | 97% | 01/19/2018 6:30 PM | | | | | PST | | + + + + + | Inhaled Oxygen | - | - | | | Concentration | | | | + + + + + | Weight | 112 kg (246 lb 14.6 | 01/19/2018 2:01 PM | | | | oz) | PST | | + + + + + | Height | 157.5 cm (5' 2") | 01/19/2018 2:01 PM | | | | | PST | | + + + + + | Body Mass Index | 45.16 | 01/19/2018 2:01 PM | | | | | PST | | + + + + + documented in this encounter Discharge Instructions Instructions Alysha Juarez RN - 01/19/2018Formatting of this note might be different fr om the original. F/U in the office in 1 week for cysto and stent removal. Cystoscopy Cystoscopy is a procedure that lets your doctor look directly inside your urethra and bladd er. It can be used to: Help diagnose a problem with your urethra, bladder, or kidneys. Take a sample (biopsy) of bladder or urethral tissue. Treat certain problems (such as removing kidney stones). Place a stent to bypass an obstruction. Take special X-rays of the kidneys. Based on the findings, your doctor may recommend other tests or treatments. What is a cystoscope? A cystoscope is a telescope-like instrument that contains lenses and fiberoptics (small gla ss wires that make bright light). The cystoscope may be straight and rigid, or flexible to b end around curves in the urethra. The doctor may look directly into the cystoscope, or proje ct the image onto a monitor. Getting ready Ask your doctor if you should stop taking any medicines before the procedure. Ask whether you should avoid eating or drinking anything after midnight before the proce dure. Follow any other instructions your doctor gives you. Tell yourdoctor before the exam if you: Take any medicines, such as aspirin or blood thinners Have allergies to any medicines Are The procedure Cystoscopy is done in the doctor s office, surgery center, or hospital. The doctor and a nurse are present during the procedure. It takes only a few minutes, longer if a biopsy, X-r ay, or treatment needs to be done. During the procedure: You lie on an exam table on your back, knees bent and legs apart. You are covered with a drape. Your urethra and the area around it are washed. Anesthetic jelly may be applied to numb the urethra. Other pain medicine is usually not needed. In some cases, you may be offered a mild sedative to help you relax. If a more extensive procedure is to be done, such as a biop sy or kidney stone removal, general anesthesia may be needed. The cystoscope is inserted. A sterile fluid is put into the bladder to expand it. You ma y feel pressure from this fluid. When the procedure is done, the cystoscope is removed. After the procedure If you had a sedative, general anesthesia, or spinal anesthesia, you must have someone driv e you home. Once you re home: Drink plenty of fluids. You may have burning or light bleeding when you urinate this is normal. Medicines may be prescribed to ease any discomfort or prevent infection. Take these as d irected. Call your doctor if you have heavy bleeding or blood clots, burning that lasts more than a day, a fever [id number] (38 C), or trouble urinating. Date Last Reviewed: 03/10/201619996269-9701 [employer]. [address] [place] [address], [place] [address]. All righ ts reserved. This information is not intended as a substitute for professional medical care. Always follow your healthcare professional's instructions. documented in this encounter Medications at Time of Discharge + + + +---------+ + + | Medication | Sig | Dispensed | Refills | Start | End Date | | | | | | Date | | + + + +---------+ + + | albuterol | Inhale 2 puffs into | | 0 | | | | (PROVENTIL HFA) 90 | the lungs as needed | | | | | | mcg/puff inhaler | for Wheezing. | | | | | + + + +---------+ + + | | Inhale into the | | 0 | | | | budesonide-formotero | lungs 2 times daily. | | | | | | l (SYMBICORT) | | | | | | | 160-4.5 mcg/puff | | | | | | | inhaler | | | | | | + + + +---------+ + + | cholecalciferol | Take 3,000 Units by | | 0 | | | | (CHOLECALCIFEROL) | mouth Daily. | | | | | | 1000 units TABS | | | | | | + + + +---------+ + + | EPINEPHrine | Inject 0.3 mg into | | 0 | | | | auto-injector 0.3 | the muscle as | | | | | | mg/0.3 mL injection | needed. | | | | | + + + +---------+ + + | fexofenadine | Take 180 mg by mouth | | 0 | | | | (CONCETTA) 180 mg | as needed. | | | | | | tablet | | | | | | + + + +---------+ + + | Inositol-D | Take 1 each by mouth | | 0 | | | | Chiro-Inositol | Daily. | | | | | | (OVASITOL PO) | | | | | | + + + +---------+ + + | Vit-Fe | Take 1 tablet by | | 0 | | | | Fumarate-FA | mouth Daily. | | | | | | ( PO) | | | | | | + + + +---------+ + + | promethazine | Take 25 mg by mouth | | 0 | 10/03/19 | | | (PHENERGAN) 25 mg | as needed. | | | 18 | | | tablet | | | | | | + + + +---------+ + + | ALPRAZolam (XANAX) | Take 0.25 mg by | | 0 | | | | 0.25 mg tablet | mouth Twice daily | | | | 9 | | | as needed for | | | | | | | Anxiety. | | | | | + + + +---------+ + + | | Take 12.5 mg by | | 0 | 10/17/19 | | | hydroCHLOROthiazide | mouth Daily. | | | 18 | 9 | | (HYDRODIURIL) 12.5 | | | | | | | MG tablet | | | | | | [...] + + +---------+ + + | | Take 1-2 tablets by | 30 | 0 | 01/20/20 | | | oxyCODONE-acetaminop | mouth every 4 hours | tablet | | 18 | 9 | | hen (PERCOCET) 5-325 | as needed for Pain. | | | | | | mg per tablet | | | | | | + + + +---------+ + + | | Take 1-2 tablets by | 30 | 0 | 12/27/19 | | | oxyCODONE-acetaminop | mouth every 4 hours | tablet | | 18 | 9 | | hen (PERCOCET) 5-325 | as needed for Pain. | | | | | | mg per tablet | | | | | | + + + +---------+ + + | | TK 1/2 TO 1 T PO Q 4 | | 0 | 10/03/19 | | | oxyCODONE-acetaminop | HOURS | | | 18 | 9 | | hen (PERCOCET) 5-325 | | | | | | | mg per tablet | | | | | | + + + +---------+ + + | scopolamine | Place 1 patch onto | 5 patch | 3 | 12/27/19 | | | (TRANSDERM-SCOP) 1 | the skin every 72 | | | 18 | 9 | | mg/3 days patch | hours. | | | | | + + + +---------+ + + | tamsulosin | Take 1 capsule by | 30 | 0 | 12/27/19 | | | (FLOMAX) 0.4 mg CAPS | mouth nightly for 30 | capsule | | 18 | 8 | | | days. | | | | | + + + +---------+ + + documented as of this encounter Plan of Treatment Not on filedocumented as of this encounter Procedures + +--------+ + + + | Procedure Name | Priori | Date/Time | Associated Diagnosis | Comments | | | ty | | | | + +--------+ + + + | FL PYELOGRAM | Routin | 01/19/2018 | | Results for this | | RETROGRADE | e | 5:38 PM | | procedure are in the | | | | PST | | results section. | + +--------+ + + + | CALCULI ANALYSIS | Routin | 01/19/2018 | | Results for this | | | e | 5:32 PM | | procedure are in the | | | | PST | | results section. | + +--------+ + + + | CYSTOSCOPY | | 01/19/2018 | Right kidney stone | | | URETEROSCOPY W/ | | 4:05 PM | (N20.0) | | | LASER | | PST | | | + +--------+ + + + | POCT TEST, | Routin | 01/19/2018 | | Results for this | | URINE, QUAL | e | 2:33 PM | | procedure are in the | | | | PST | | results section. | + +--------+ + + + documented in this encounter Results FL Pyelogram Retrograde (01/19/2018 5:38 PM PST) + + | Specimen | + + | | + + + + + | Narrative | Performed At | + + + | This exam has been auto-finalized and the interpretation may exist | [facility] | | elsewhere in the chart. | | + + + + +---------+ + + | Performing | Address | City/State/Zipcode | Phone Number | | Organization | | | | + +---------+ + + | [facility] | | | | + +---------+ + + Calculi Analysis (01/19/2018 5:32 PM PST) + + + + + + | Component | Value | Ref Range | Performed | Pathologist | | | | | At | Signature | + + + + + + | CALCULI | CommentComment: Specimen | mm | REFERENCE | | | SIZE | received as fragments. | | LAB [facility] | | | | | | - [facility] | | + + + + + + | Stone | CommentComment: | | REFERENCE | | | Composition | Percentage (Represents | | [facility] | | | | the % composition) | | - [facility] | | + + + + + + | Color | Brown | | REFERENCE | | | | | | [facility] | | | | | | - [facility] | | + + + + + + | Calculi | 357.0 | mg | REFERENCE | | | Weight | | | [facility] | | | | | | - [facility] | | + + + + + + | Ca | 50 | % | REFERENCE | | | Oxalate,Dih | | | [facility] | | | ydrate | | | - [facility] | | + + + + + + | Ca | 15 | % | REFERENCE | | | Oxalate,Mon | | | LAB [facility] | | | ohydr. | | | - [facility] | | + + + + + + | Stone | 35 | % | REFERENCE | | | Calcium | | | [facility] | | | Phosphate | | | - [facility] | | + + + + + + | Nidus | No Nidus visualized | | REFERENCE | | | | | | [facility] | | | | | | - [facility] | | + + + + + + | Comment | Note:Comment: Please do | | REFERENCE | | | | not submit specimens on | | LAB [facility] | | | | Q-Tips, in tape, on | | - [facility] | | | | filters, or inliquids | | | | | | such as blood, urine or | | | | | | formalin. This may | | | | | | cause | | | | | | unnecessarybiohazards, | | | | | | erroneous results and/or | | | | | | delay in the processing | | | | | | of thespecimen. | | | | + + + + + + | Photo | CommentComment: | | REFERENCE | | | | Photograph will follow | | LAB [facility] | | | | under separate cover. | | - [facility] | | + + + + + + | CALCULI | CommentComment: | | REFERENCE | | | COMMENT | Physician questions | | [facility] | | | | regarding Calculi | | - [facility]KR | | | | Analysis contact Leslie | | | | | | at:[phone]. | | | | + + + + + + | Please note | CommentComment: Calculi | | REFERENCE | | | | report with photograph | | LAB [facility] | | | | will follow via | | - [facility] | | | | computer, mail orcourier | | | | | | delivery. | | | | + + + + + + | Disclaimer | CommentComment: This | | REFERENCE | | | | test was developed and | | [facility] | | | | its performance | | - [facility]KR | | | | characteristicsdetermine | | | | | | d by Leslie. It has not | | | | | | been cleared or | | | | | | approvedby the Food and | | | | | | Drug Administration. | | | | + + + + + + + + | Specimen | + + | Tissue - Entire | | right ureter (body | | structure) | + + + + + | Narrative | Performed At | + + + | Performed at: [address], | REFERENCE LAB | | [place], [place] [id number] E Commerce Manager: Austin Christie MD, Phone: | [facility] | | [phone] | | + + + + + + + + | Performing | Address | City/State/Zipcode | Phone Number | | Organization | | | | + + + + + | REFERENCE LAB | [address] | [place], [place] | [phone] | | [facility] | [place] | [address] | | + + + + + POCT Test, Urine, QUAL (01/19/2018 2:33 PM PST) + + + + + + | Component | Value | Ref Range | Performed | Pathologist | | | | | At | Signature | + + + + + + | | Negative | Negative | | | | Test, | | | | | | Urine, POC | | | | | + + + + + + | Internal QC | Acceptable | Acceptable | | | + + + + + + | Specific | | 1.010, 1.015, | | | | [place], | | 1.020, 1.025 | | | | POC | | | | | + + + + + + | Lot Number | [id number] | | | | + + + + + + | Expiration | 06/13/2019 | | | | | Date | | | | | + + + + + + + + | Specimen | + + | Urine | + + documented in this encounter Visit Diagnoses + + | Diagnosis | + + | Kidney stone Calculus of kidney | + + documented in this encounter Administered Medications + +--------+ + +------+------+ | Medication Order | MAR | Action | Dose | Rate | Site | | | Action | Date | | | | + +--------+ + +------+------+ | acetaminophen (TYLENOL) tablet | Given | 01/20/20 | 1,000 mg | | | | 1,000 mg 1,000 mg, Oral, ONCE, | | 18 2:35 | | | | | Fri01/19/18 at 1430, For 1 dose, | | PM PST | | | | | Pre-op | | | | | | + +--------+ + +------+------+ + +---+ | | | + +---+ | acetaminophen (TYLENOL) tablet | | | 1,000 mg 1,000 mg, Oral, EVERY 8 | | | HOURS (3 times per day), First | | | dose on Fri01/19/18 at 2200, For | | | 3 days, Start 8 hours after | | | pre-op dose., Post-op/Phase II | | + +---+ | | | + +---+ | albuterol 2.5 mg/3 mL nebulizer | | | solution 2.5 mg 2.5 mg, | | | Nebulization, ONCE PRN, Wheezing, | | | Starting 01/19/18 at 1405, | | | For 1 dose, RT will administer., | | | Pre-op | | + +---+ | | | + +---+ | albuterol 2.5 mg/3 mL nebulizer | | | solution 2.5 mg 2.5 mg, | | | Nebulization, ONCE PRN, Wheezing, | | | Starting 01/19/18 at 1720, | | | For 1 dose, Notify anesthesia if | | | patient is wheezing and does not | | | have a history of asthma or COPD | | | or current smoking., | | | Recovery/Phase I | | + +---+ | | | + +---+ | albuterol-ipratropium 2.5-0.5 | | | mg/3 mL nebulizer solution 3 mL | | | 3 mL, Nebulization, ONCE PRN, | | | Wheezing, Starting 01/19/18 | | | at 1405, For 1 dose, Pre-op | | + +---+ | | | + +---+ | albuterol-ipratropium 2.5-0.5 | | | mg/3 mL nebulizer solution 3 mL | | | 3 mL, Nebulization, ONCE PRN, | | | Wheezing, Shortness of Breath, | | | Starting 01/19/18 at 1720, | | | For 1 dose, Recovery/Phase I | | + +---+ | | | + +---+ + +-------+ +--------+---+---+ | ciprofloxacin (CIPRO) tablet | Given | 01/20/20 | 500 mg | | | | 500 mg 500 mg, Oral, ONCE, Mon | | 18 2:35 | | | | | 01/19/18 at 1430, For 1 dose, | | PM PST | | | | | Give 2 hours before or 6 hours | | | | | | | after antacids, dairy, calcium, | | | | | | | iron, or zinc., Pre-op, | | | | | | | Indications: Surgical Prophylaxis | | | | | | + +-------+ +--------+---+---+ + +---+ | | | + +---+ | dextrose 50% injection 12.5-25 | | | g 12.5-25 g, Intravenous, EVERY | | | 15 MIN PRN, Low Blood Sugar, Give | | | 12.5g (25 mL) IV if blood | | | glucose 50-69 mg/dL. Give 25g | | | (50 mL) IV if blood glucose < 50, | | | Starting 01/19/18 at 1405, | | | Repeat in 15 min if blood glucose | | | remains < 70 mg/dL. Repeat | | | blood glucose in 30 min once | | | blood glucose > 70., Pre-op | | + +---+ | | | + +---+ | dextrose 50% injection 12.5-25 | | | g 12.5-25 g, Intravenous, EVERY | | | 15 MIN PRN, Low Blood Sugar, For | | | hypoglycemia. Give 12.5g (25ml) | | | IV if blood glucose 50-69 | | | mg/dL. Give 25g (50ml) IV if | | | blood glucose < 50, Starting Mon | | | 01/19/18 at 1720, Give over 2 | | | min. Repeat in 15 min if blood | | | glucose remains < 70 mg/dL. | | | Repeat blood glucose in 30 min | | | once blood glucose > 70., | | | Recovery/Phase I | | + +---+ | | | + +---+ | ePHEDrine 50 mg/mL injection 5 | | | mg 5 mg, Intravenous, EVERY 5 | | | MIN PRN, if SBP <90., Starting | | | Fri01/19/18 at 1720, Hold if HR | | | > 100. Maximum total dose 20mg., | | | Recovery/Phase I | | + +---+ | | | + +---+ | fentaNYL (PF) injection 25-50 | | | mcg 25-50 mcg, Intravenous, | | | EVERY 5 MIN PRN, Pain, Starting | | | Fri01/19/18 at 1720, Maximum | | | total dose 250 mcg. PACU IV | | | Narcotic Priority: Only use | | | fentanyl for immediate post-op | | | pain (one dose) or breakthrough | | | pain when any other IV narcotics | | | ordered have been ineffective (if | | | ordered). If both morphine and | | | hydromorphone are ordered, use | | | morphine first, and use | | | hydromorphone if morphine | | | ineffective., Recovery/Phase I | | + +---+ | | | + +---+ + +-------+ +--------+---+---+ | gabapentin (NEURONTIN) capsule | Given | 01/20/20 | 600 mg | | | | 600 mg 600 mg, Oral, ONCE, Mon | | 18 2:36 | | | | | 01/19/18 at 1430, For 1 dose, | | PM PST | | | | | Pre-op | | | | | | + +-------+ +--------+---+---+ + +---+ | | | + +---+ | hydrALAZINE (APRESOLINE) | | | injection 5 mg 5 mg, | | | Intravenous, EVERY 20 MINUTES | | | PRN, For SBP > 180, DBP > 100, | | | Starting 01/19/18 at 1720, | | | Hold if HR > 100. Maximum total | | | dose 40 mg. Use labetalol first | | | if available., Recovery/Phase I | | + +---+ | | | + +---+ | HYDROmorphone (DILAUDID) | | | injection 0.2-0.4 mg 0.2-0.4 mg, | | | Intravenous, EVERY 1 HOUR PRN, | | | Pain, Starting 11/12/18 at | | | 1745, If oral route not an | | | option. Slow IV push, not faster | | | than 0.3mg/minute. First dose | | | must be lowest dose, titrate to | | | effective dose by repeat of | | | lowest dose every 30 minutes prn | | | pain, may not exceed maximum dose | | | ordered per interval. Use | | | Pasero Sedation Scale., | | | Post-op/Phase II | | + +---+ | | | + +---+ | HYDROmorphone (DILAUDID) | | | injection 0.2-0.5 mg 0.2-0.5 mg, | | | Intravenous, EVERY 5 MIN PRN, | | | Pain, Starting Fri01/19/18 at | | | 1720, Maximum total dose 4 mg. | | | PACU IV Narcotic Priority: Only | | | use fentanyl for immediate | | | post-op pain (one dose) or | | | breakthrough pain when any other | | | IV narcotics ordered have been | | | ineffective (if ordered). If | | | both morphine and hydromorphone | | | are ordered, use morphine first, | | | and use hydromorphone if morphine | | | ineffective., Recovery/Phase I | | + +---+ | | | + +---+ | ibuprofen (ADVIL, MOTRIN) | | | tablet 400 mg 400 mg, Oral, | | | EVERY 8 HOURS (3 times per day), | | | First dose on Fri01/20/18 at | | | 0600, For 9 doses, If urine | | | output is less than 240ml/8 hours | | | (30ml/hr) or if signs of | | | bleeding, contact MD and hold. | | | Administer with food or snack, | | | Post-op/Phase II | | + +---+ | | | + +---+ + +-------+ +-------+---+---+ | ketorolac (TORADOL) injection | Given | 01/20/20 | 15 mg | | | | 15 mg 15 mg, Intravenous, ONCE, | | 18 6:00 | | | | | 01/19/18 at 1815, For 1 dose, | | PM PST | | | | | If urine output is less than | | | | | | | 240ml/8 hours (30ml/hr) or if | | | | | | | signs of bleeding, contact MD and | | | | | | | hold., Post-op/Phase II | | | | | | + +-------+ +-------+---+---+ + +---+ | | | + +---+ | labetalol (TRANDATE) 5 mg/mL | | | injection 5 mg 5 mg, | | | Intravenous, EVERY 5 MIN PRN, For | | | SBP > 180, DBP > 100, Starting | | | Fri01/19/18 at 1720, Hold if HR | | | < 60. Maximum total dose 300mg. | | | Notify anesthesia if patient | | | requires more than 50mg., | | | Recovery/Phase I | | + +---+ | | | + +---+ + +---------+ +---+-------+---+ | lactated ringers (LR) infusion | New Bag | 01/20/20 | | 100 | | | at 10-100 mL/hr, Intravenous, | | 18 6:03 | | mL/hr | | | CONTINUOUS, Starting Fri01/19/18 | | PM PST | | | | | at 1430, TKO., Pre-op | | | | | | + +---------+ +---+-------+---+ +---------+ +--------+-------+---+ | New Bag | 01/20/20 | 1,000 | 100 | | | | 18 2:36 | mLs | mL/hr | | | | PM PST | | | | +---------+ +--------+-------+---+ | New Bag | 01/20/20 | 1,000 | 100 | | | | 18 2:22 | mLs | mL/hr | | | | PM PST | | | | +---------+ +--------+-------+---+ + +---+ | | | + +---+ | meperidine (DEMEROL) injection | | | 12.5-25 mg 12.5-25 mg, | | | Intravenous, PRN, Shivering, | | | Starting 01/19/18 at 1720, | | | For 2 doses, May Repeat once in 5 | | | min., Recovery/Phase I | | + +---+ | | | + +---+ | metoclopramide (REGLAN) 5 mg/mL | | | injection 10 mg 10 mg, | | | Intravenous, EVERY 6 HOURS PRN, | | | Nausea, Vomiting, Starting Mon | | | 01/19/18 at 1720, For 2 doses, | | | Protect from light., | | | Recovery/Phase I | | + +---+ | | | + +---+ + +-------+ +------+---+---+ | ondansetron (ZOFRAN) injection | Given | 01/20/20 | 4 mg | | | | 4 mg 4 mg, Intravenous, ONCE | | 18 6:06 | | | | | PRN, Nausea, Starting Mon | | PM PST | | | | | 01/19/18 at 1720, For 1 dose, | | | | | | | Recovery/Phase I | | | | | | + +-------+ +------+---+---+ +---+---+ | | | +---+---+ + +-------+ +------+---+---+ | oxyCODONE (ROXICODONE) tablet | Given | 01/20/20 | 5 mg | | | | 2.5-10 mg 2.5-10 mg, Oral, EVERY | | 18 6:05 | | | | | 3 HOURS PRN, Pain, Starting Mon | | PM PST | | | | | 01/19/18 at 1745, First dose must | | | | | | | be the lowest dose, can titrate | | | | | | | to effective dose by repeat of | | | | | | | lowest dose every 60 minutes prn | | | | | | | pain, may not exceed maximum dose | | | | | | | ordered per interval. Use Pasero | | | | | | | Sedation Scale., Post-op/Phase | | | | | | | II | | | | | | + +-------+ +------+---+---+ +---+---+ | | | +---+---+ + +-------+ +---------+---+---+ | promethazine (PHENERGAN) (IV | Given | 01/20/20 | 6.25 mg | | | | ONLY) injection 6.25 mg 6.25 mg, | | 18 6:27 | | | | | Intravenous, EVERY 15 MIN PRN, | | PM PST | | | | | Nausea, Vomiting, Starting Mon | | | | | | | 01/19/18 at 1720, For 4 doses, | | | | | | | TAKE PRECAUTIONS WHEN | | | | | | | ADMINISTERING Dilute to 10-20mL | | | | | | | with NS. Give over 2-3 minutes | | | | | | | into large vein. Use ondansetron | | | | | | | first if both are ordered., | | | | | | | Recovery/Phase I | | | | | | + +-------+ +---------+---+---+ +---+---+ | | | +---+---+ + +---------+ +---------+---+ + | scopolamine (TRANSDERM-SCOP) 1 | Patch | 01/20/20 | 1 patch | | Ear-Behi | | mg/3 days 1 patch 1 patch, | Applied | 18 2:37 | | | nd Right | | Transdermal, ONCE, 01/19/18 | | PM PST | | | | | at 1430, For 1 dose, Apply to | | | | | | | mastoid process, Pre-op | | | | | | + +---------+ +---------+---+ + +---+---+ | | | +---+---+ documented in this encounter
--- OUTSIDE RECORDS SUMMARY | ~2019-08-05 | XMS | Encounter Summary ---
Demographics + + + | Address | [address] | | | [place] [address] | + + + | Home Phone | | + + + | Preferred Language | Unknown | + + + | Marital Status | Single | + + + | Sikhism Affiliation | 1013 | + + + | Race | Unknown | + + + | Ethnic Group | Unknown | + + + Author + + + | Author | [facility] | | | and [place] | + + + | Organization | [facility] | | [...] Team Providers + +------+ + | Care Mower Sharpener Name | Role | Phone | + [...] + + | 11/26/ | Clinical | [facility] | Jerrell Hightower | Abnormal urinalysis | | 2018 | Support | [address] | MD [place]ita [address] | (Primary Dx) | | | | [place] | [place] | | | | | [address] | [address] | | | | | [phone] | | | +--------+ + + + [...] and leukocytes . Urine specimen sent to [facility] lab for microscopic urinalysis and culture if [...] [address] | [place] | [phone] | | [facility] | | [id number] | | | - LABORATORY | | [...] ST. | [address] | [place] | [phone] | | [facility] | | [address] | | | - LABORATORY | | [...] 1.001 - 1.030 | | | | [place], | | | | | | [facility], [...]
--- OUTSIDE RECORDS SUMMARY | ~2019-08-05 | XMS | Clinical Summary ---
Demographics + + + | Address | [address] | | | [place] [address] | + + + | Home Phone | | + + + | Preferred Language | Unknown | + + + | Marital Status | Single | + + + | Orthodoxy Affiliation | UNK | + + + | Race | White | + + + | Ethnic Group | Not or | + + + Author + + + | Author | NON REVENUE LOCATIONS | + + + | Organization | NON REVENUE LOCATIONS | + + + | Address | Unknown | + + + | Phone | Unavailable | + + + Support + + +---------+ + | Name | Relationship | Address | Phone | + + +---------+ + | Maribel Patel | ECON | Unknown | | + + +---------+ + Care Team Providers + +------+ + | Care Research Scholar Name | Role | Phone | + +------+ + | Chris De La Torre MD | PCP | | + +------+ + Source Comments [facility] is fully live on both [facility] and [facility] Allergies + + + + + + | Active Allergy | Reactions | Severity | Noted | Comments | | | | | Date | | + + + + + + | Ceftriaxone | Hives | High | 09/18/19 | | | | | | 18 | | + + + + + + | Erythromycin | Stomach Upset | Low | 12/21/19 | | | | | | 15 | | + + + + + + Medications + + + +---------+------+------+-------+ | Medication | Sig | Dispensed | Refills | Star | End | Statu | | | | | | t | Date | s | | | | | | Date | | | + + + +---------+------+------+-------+ | albuterol 90 | Inhale by mouth. | | 0 | | | Activ | | mcg/actuation | | | | | | e | | inhalation HFA | | | | | | | | aerosol inhaler | | | | | | | + + + +---------+------+------+-------+ | | Inhale by mouth. | | 0 | | | Activ | | budesonide-formotero | | | | | | e | | l 160-4.5 | | | | | | | | mcg/actuation | | | | | | | | inhalation HFA | | | | | | | | aerosol inhaler | | | | | | | + + + +---------+------+------+-------+ | cholecalciferol | Take by mouth. | | 0 | | | Activ | | (Vitamin D3) | | | | | | e | | (VITAMIN D3) 1,000 | | | | | | | | unit oral tablet | | | | | | | + + + +---------+------+------+-------+ | EPINEPHrine 0.3 | Inject into the | | 0 | | | Activ | | mg/0.3 mL injection | muscle (IM). | | | | | e | | auto-injector | | | | | | | + + + +---------+------+------+-------+ | fexofenadine 180 | Take by mouth. | | 0 | | | Activ | | mg oral tablet | | | | | | e | + + + +---------+------+------+-------+ | | Take by mouth. | | 0 | 07/1 | | Activ | | HYDROcodone-acetamin | | | | 3/20 | | e | | ophen 7.5-325 mg | | | | 18 | | | | oral tablet | | | | | | | + + + +---------+------+------+-------+ | PNV | Take by mouth. | | 0 | | | Activ | | Ai15-Hrsk-TI-EFF-LE- | | | | | | e | | 3 29 mg iron-1 mg | | | | | | | | -50 mg oral combo | | | | | | | | pack,tablet and | | | | | | | | DR julia | | | | | | | + + + +---------+------+------+-------+ Active Problems + + + | Problem | Noted Date | + + + | Asthma | 11/18/2017 | + + + | Primary hyperparathyroidism | 2017 | + + + + + | Overview: Overview: | | Added automatically from request for surgery [id number] | + + + + + | Kidney stone | 01/20/2017 | + + + Family History + + +------+ + | Medical History | Relation | Name | Comments | + + +------+ + | Diabetes | Father | | | + + +------+ + + +------+--------+ + | Relation | Name | Status | Comments | + +------+--------+ + | Father | | | | + +------+--------+ + Social History + +-------+ +--------+------+ | Tobacco Use | Types | Packs/Day | Years | Date | | | | | Used | | + +-------+ +--------+------+ | Never Smoker | | | | | + +-------+ +--------+------+ + +---+---+---+ | Smokeless Tobacco: | | | | | Never Used | | | | + +---+---+---+ + + +---------+ + | Alcohol Use | Drinks/Week | oz/Week | Comments | + + +---------+ + | Yes | | | | + + +---------+ + + + [...] recent travel history available. | + + Last Filed Vital Signs + + + + + | Vital Sign | Reading | Time Taken | Comments | + + + + + | Blood Pressure | 123/81 | 11/18/2017 2:08 PM | | | | | PDT | | + + + + + | Pulse | 64 | 11/18/2017 2:08 PM | | | | | PDT | | + + + + + | Temperature | 36.2 C (97.1 F) | 11/18/2017 2:08 PM | | | | | PDT | | + + + + + | Respiratory Rate | - | - | | + + + + + | Oxygen Saturation | 98% | 11/18/2017 2:08 PM | | | | | PDT | | + + + + + | Inhaled Oxygen | - | - | | | Concentration | | | | + + + + + | Weight | 109 kg (240 lb 4.8 | 11/18/2017 2:08 PM | | | | oz) | PDT | | + + + + + | Height | 157.5 cm (5' 2") | 11/18/2017 2:08 PM | | | | | PDT | | + + + + + | Body Mass Index | 43.95 | 11/18/2017 2:08 PM | | | | | PDT | | + + + + + Plan of Treatment + + + + + | Health Maintenance | Due Date | Last Done | Comments | + + + + + | Pneumococcal | | | | | vaccination (1 of 1 | 6 | | | | - PPSV23) | | | | + + + + + | Influenza (Flu) | | | | | vaccination (#1) | 9 | | | + + + + + Results Not on filefrom Last 3 Months Insurance +-------+--------+ +--------+ + +------+ | Payer | Benefi | Subscriber | Effect | Phone | Address | Type | | | t Plan | ID | zofia | | | | | | / | | Dates | | | | | | Group | | | | | | +-------+--------+ +--------+ + +------+ | MODA | MODA | [phone] | 05/09/19 | [phone] | [address] | PPO | | | [place] | | 18-Pre | 4 | [id number] | | | | [place] | | sent | | [place], | | | | | | | | [place] [address] | | +-------+--------+ +--------+ + +------+ + +--------+ +--------+ + + | Guarantor Name | Accoun | Relation to | Date | Phone | Billing Address | | | t Type | Patient | of | | | | | | | | | | + +--------+ +--------+ + + | Mariela Braden | Person | Self [birth year] | [address] | | [place] | al/Fam | | 1981 | [phone] | [place] [address] | | | [place] | | | [address] (Home) | | + +--------+ +--------+ + +
--- OUTSIDE RECORDS SUMMARY | ~2019-08-05 | XMS | Encounter Summary ---
Demographics + + + | Address | [address] | | | [place] [address] | + + + | Home Phone | | + + + | Preferred Language | Unknown | + + + | Marital Status | Single | + + + | Taoist Affiliation | [id number] | + + + | Race | Unknown | + + + | Ethnic Group | Unknown | + + + Author + + + | Author | [facility] | | | and [place] | + + + | Organization | [facility] | | | and [...] Team Providers + +------+ + | Care Principal Developer Name | Role | Phone | + +------+ + | Chris De La Torre MD | PCP | | + +------+ + Reason for Visit + + + | Reason | Comments | + + + | Nephrolithiasis | | + + + Encounter Details +--------+---------+ + + + | Date | Type | Department | Care Team | Description | +--------+---------+ + + + | 12/18/ | Office | [facility] | Jerrell Hightower | Kidney stones | | 2018 | Visit | [address] | MD [place] [address] | (Primary Dx); | | | | [place] | [place] | Nephrolithiasis | | | | [address] | [id number] | | | | | [phone] | | | +--------+---------+ + + + Social History + +-------+ [...] + + + | Blood Pressure | 110/78 | 12/18/2017 1:05 PM | | | | | PDT | | + + + + + | Pulse | 70 | 12/18/2017 1:05 PM | | | | | PDT | | + + + + + | Temperature | - | - | | + + + + + | Respiratory Rate | 22 | 12/18/2017 1:05 PM | | | | | PDT | | + + + + + | Oxygen Saturation | - | - | | + + + + + | Inhaled Oxygen | - | - | | | Concentration | | | | + + + + + | Weight | 110.7 kg (244 lb 0.8 | 12/18/2017 1:05 PM | | | | oz) | PDT | | + + + + + | Height | 157.5 cm (5' 2") | 12/18/2017 1:05 PM | | | | | PDT | | + + + + + | Body Mass Index | 44.64 | 12/18/2017 1:05 PM | | | | | PDT | | + + + + + documented in this encounter Patient Instructions Patient Instructions Glendy Sahu RN - 12/18/2017 1:00 PM PDTPreoperative Instructi ons Your surgery with Dr. Hightower has been scheduled for December 25, 2017 at 9:00 AM at [facility]. Please report to [facility] no later than 7:30 AM. REMEMBER: NOTHING TO EAT OR DRINK AFTER MIDNIGHT December 24, 2017. Take all of your usual medications with a sip of water. Hold Vitamin for 5 days prior. NO ASPIRIN OR ASPIRIN PRODUCTS, NO FISH OIL OR VITAMIN E FOR ONE WEEK PRIOR TO SURGERY. Ty lenol (acetaminophen) and ibuprofen is OK. You will need someone to drive you home after surgery. You will need to get the following testing done prior to surgery: CBC, BMP and UA. Please g o to the [facility] today to complete these tests. Call us at [phone] with any questions. [x] Pain management booklet provided to patient. documented in this encounter Progress Notes Jerrell Hightower MD - 12/18/2017 1:00 PM PDTFormatting of this note might be different f rom the original. Chief Complaint Patient presents with Nephrolithiasis HPI Mariela Braden is a 37 y.o. female patient of Chris De La Torre MD here today for a follow up for nephrolithiasis. Nephrolithiasis Patient resents today to discuss treatment of her kidney stones. She continues to experien ce intermittent bilateral flank pain right greater than left as well as arm and gross hematu frank. She denies any fever chills or flulike symptoms. She also denies any bouts of nausea or vomiting. Assessment Mariela was seen today for nephrolithiasis. Diagnoses and all orders for this visit: Kidney stones - CBC w/ Auto Differential; Future - Basic Metabolic Panel; Future - Urinalysis, Reflex Microscopic and/or Culture; Future Nephrolithiasis Plan Due to the patient's large kidney stone on the right she'll need undergo percutaneous nephr olithotomy. We discussed risks including pain, bleeding, infection, renal hematoma, signifi cant trauma to the kidney, urine leak, lung injury, bowel injury, extravasation of fluid int o the abdomen and need for further procedures. We discussed that she may have a nephrostomy tube for a period of time after the procedure and she may need further procedures such as repeat percutaneous nephrolithotomy or ureterosc opy with laser lithotripsy and stent. Patient will also be typed and asked for 2 units. Past Medical History Past Medical History: Diagnosis Date Asthma Borderline diabetes Hyperparathyroidism (HCC) Kidney stone Nephrolithiasis Polycystic ovarian syndrome PTSD (post-traumatic stress disorder) PTSD (post-traumatic stress disorder) Past Surgical History Past Surgical History: Procedure Laterality Date KIDNEY STONE SURGERY 2007 x 3 partial parathyroidectomy 09/2017 TONSILLECTOMY AND ADENOIDECTOMY 2002 Family History: Family History Problem Relation Age of Onset Prostate cancer Neg Hx Social History: Social History Social History Marital status: Single Spouse name: N/A Number of children: N/A Years of education: N/A Social History Main Topics Smoking status: Former Smoker Quit date: 2013 Smokeless tobacco: Never Used Alcohol use 1.2 oz/week 2 Cans of beer per week Comment: socially Drug use: No Sexual activity: No Other Topics Concern None Social History Narrative None Allergies Allergen Reactions Ceftriaxone Hives Erythromycin Other (See Comments) Stomach upset Medications: Current Outpatient Prescriptions: albuterol (PROVENTIL HFA) 90 mcg/puff inhaler, Inhale 2 puffs into the lungs as needed for Wheezing., Disp: , Rfl: ALPRAZolam (XANAX) 0.25 mg tablet, Take 0.25 mg by mouth Twice daily as needed for An xiety., Disp: , Rfl: budesonide-formoterol (SYMBICORT) 160-4.5 mcg/puff inhaler, Inhale into the lungs., D isp: , Rfl: cholecalciferol (CHOLECALCIFEROL) 1000 units TABS, Take 3,000 Units by mouth Daily., D isp: , Rfl: EPINEPHrine auto-injector 0.3 mg/0.3 mL injection, Inject 0.3 mg into the muscle as ne eded., Disp: , Rfl: fexofenadine (CONCETTA) 180 mg tablet, Take 180 mg by mouth as needed., Disp: , Rfl: hydroCHLOROthiazide (HYDRODIURIL) 12.5 MG tablet, Take 12.5 mg by mouth Daily., Disp: , Rfl: 0 HYDROcodone-acetaminophen (NORCO) 7.5-325 mg per tablet, TAKE ONE TABLET BY MOUTH EVER Y 6 HOURS NEEDED FOR PAIN, Disp: , Rfl: 0 Inositol-D Chiro-Inositol (OVASITOL PO), Take by mouth., Disp: , Rfl: oxyCODONE-acetaminophen (PERCOCET) 5-325 mg per tablet, TK 1/2 TO 1 T PO Q 4 HOURS, Di sp: , Rfl: 0 Vit-Fe Fumarate-FA ( PO), Take 1 tablet by mouth Daily., Disp: , Rfl: promethazine (PHENERGAN) 25 mg tablet, Take 25 mg by mouth as needed., Disp: , Rfl: 0 ROS Gen.: No fever no chills GI: No nausea no vomiting : No dysuria no gross hematuria Cardio: No shortness of breath, no chest pain Objective BP 110/78 | Pulse 70 | Resp 22 | Ht 1.575 m (5' 2") | Wt 110.7 kg (244 lb 0.8 oz) | LM P 11/27/2017 | ? No | BMI 44.64 kg/m General Appearance: Alert, cooperative, no distress, appears stated age, obese Head: Normocephalic, without obvious abnormality, atraumatic Eyes: conjunctiva/corneas clear, EOM's intact Throat: Lips, mucosa, and tongue normal; no gross deformities, mmm Neck: Supple, symmetrical, no adenopathy Lungs: Regular, unlabored breathing MS No CVA tenderness, no spinal tenderness, no scoliosis present Abdomen: Soft, non-tender, no masses Extremities: Extremities normal, atraumatic, no cyanosis, clubbing, mild bilateral edema in LE Skin: Warm and dry Lymph nodes: Cervical and supraclavicular nodes normal Neurologic: Gait normal, CN 2-12 grossly intact; Strength and sensation grossly normal in b ilateral upper and lower extremities Data: CT scan the abdomen and pelvis July 2017 I personally reviewed and interpreted CT scan images. Significant for very large stone in the renal pelvis of the right kidney. This is greater than 2 cm in size. There is no assoc iated hydronephrosis. Left kidney demonstrates approximate 5 mm stone in the lower pole. The skin to stone distance is approximate 14-15 cm on the right side. Results for orders placed or performed in visit on 11/26/17 Culture, Urine Result Value Ref Range Culture No Growth Urinalysis, Microscopic Only, with Culture if Indicated Result Value Ref Range WBC UA 25-50 (A) 0 - 2 /HPF RBC UA 50-100 (A) 0 - 2 /HPF SQUAMOUS EPITHELIAL UA 0-2 0 - 2 /LPF BACTERIA UA 1+ (A) Negative /HPF MUCUS UA Present (A) Negative /LPF URINE COMMENT Urine Culture Set Up POCT Urinalysis Dipstick Automated Result Value Ref Range Color, UA, POC Donna (A) Yellow, Light Yellow Clarity, UA, POC Cloudy Glucose, UA, POC Negative Negative Bilirubin, UA, POC Negative Negative Ketones, UA, POC Negative Negative, 100 mg/dL Specific [place], UA, POC 1.020 1.001 - 1.030 Blood, UA, POC Large (A) Negative pH, UA, POC 7.0 5.0, 6.0, 7.0, 8.0, 5.5, 6.5, 7.5 Protein, UA, POC 30 mg/dL (A) Negative Urobilinogen, UA, POC 0.2 0.2, Negative, Normal, < 0.2 mg/dL, 1 mg/dL, < 0.2 E.U./dl, 1.0 E.U./dL, 0.2 mg/dL Nitrite, UA, POC Negative Negative Leukocyte Esterase, UA, POC Small (A) Negative RED SUB UA ICTOTEST Negative REMARK No results found for: TANISHA De La Torre MD's notes were reviewed in clinic today. No Follow-up on file.. This document was generated in part using voice recognition software. Frequent wrong word or sound-alike substitutions may have occurred due to the inherent limitations of the voice recognition software. Although I have attempted to edit the content, I have not thoroughly proofread this note, and tribal judge errors are very likely to occur. CC: Chris De La Torre MD documented in this encounter Plan of Treatment Not on filedocumented as of this encounter Results Urinalysis, Reflex Microscopic and/or Culture (12/18/2017 2:06 PM PDT) + + + + + + | Component | Value | Ref Range | Performed | Pathologist | | | | | At | Signature | + + + + + + | Color, | Yellow | Light Yellow, | [facility] | | | Urine | | Yellow, Straw | [facility] | | | | | | MEDICAL | | | | | | CENTER - | | | | | | LABORATORY | | + + + + + + | Clarity | Clear | Clear | [facility] | | | | | | [facility] | | | | | | MEDICAL | | | | | | CENTER - | | | | | | LABORATORY | | + + + + + + | pH, Urine | 7.0 | 5.0 - 8.0 | [facility] | | | | | | [facility] | | | | | | MEDICAL | | | | | | CENTER - | | | | | | LABORATORY | | + + + + + + | Specific | 1.010 | 1.001 - 1.030 | [facility] | | | [place], | | | [facility] | | | Urine | | | MEDICAL | | | | | | CENTER - | | | | | | LABORATORY | | + + + + + + | Protein, | Negative | Negative | [facility] | | | Urine | | | [facility] | | | | | | MEDICAL | | | | | | CENTER - | | | | | | LABORATORY | | + + + + + + | Blood, | Large (A) | Negative | [facility] | | | Urine | | | [facility] | | | | | | MEDICAL | | | | | | CENTER - | | | | | | LABORATORY | | + + + + + + | Glucose, | Negative | Negative | [facility] | | | Urine | | | [facility] | | | | | | MEDICAL | | | | | | CENTER - | | | | | | LABORATORY | | + + + + + + | Ketones, | Negative | Negative | [facility] | | | Urine | | | [facility] | | | | | | MEDICAL | | | | | | CENTER - | | | | | | LABORATORY | | + + + + + + | Bilirubin, | Negative | Negative | [facility] | | | Urine | | | [facility] | | | | | | MEDICAL | | | | | | CENTER - | | | | | | LABORATORY | | + + + + + + | Nitrite, | Negative | Negative | [facility] | | | Urine | | | [facility] | | | | | | [facility]ICAL | | | | | | CENTER - | | | | | | LABORATORY | | + + + + + + | Leukocyte | Moderate (A) | Negative | [facility] | | | Esterase, | | | [facility] | | | Urine | | | MEDICAL | | | | | | CENTER - | | | | | | LABORATORY | | + + + + + + | Urobilinoge | Negative | 0.2 mg/dL, 1.0 | [facility] | | | n, Urine | | mg/dL, Negative | [facility] | | | | | | MEDICAL | | | | | | CENTER - | | | | | | LABORATORY | | + + + + + + | White Blood | 15-25 (A) | 0 - 2 /HPF | [...] + + + + | Squamous | 2-5 (A) | 0 - 2 /LPF | [facility] | | | Epithelial | | | [facility] | | | Cells, | | | MEDICAL | | | Urine | | | CENTER - | | | | | | LABORATORY | | + + + + + + | Bacteria, | Negative | Negative /HPF | [facility] | | [...] + + | Urine | Urine Culture Not | | [facility] | | | Comment | Indicated | | [facility] | | | [...] ST. | [address] | [place], [place] | [phone] | | [facility] | | [id number] | | | - LABORATORY | | | | + + + + + Basic Metabolic Panel (12/18/2017 2:05 PM PDT) + + + + + + | Component | Value | Ref Range | Performed | Pathologist | | | | | At | Signature | + + + + + + | Na | 138 | 136 - 149 | [facility] | | | | | mmol/L | [facility] | | | | | | MEDICAL | | | | | | CENTER - | | | | | | LABORATORY | | + + + + + + | K | 4.0 | 3.5 - 5.1 | [facility] | | | | | mmol/L | [facility] | | | | | | MEDICAL | | | | | | CENTER - | | | | | | LABORATORY | | + + + + + + | Cl | 103 | 98 - 109 mmol/L | [facility] | | | | | | [facility] | | | | | | [facility]ICAL | | | | | | CENTER - | | | | | | LABORATORY | | + + + + + + | CO2 | 28 | 24 - 31 mmol/L | [facility] | | | | | | [facility] | [facility] | | | [facility] | | | | | | CENTER - | | | | | | LABORATORY | | + + + + + + | Anion Gap | 7 | 3 - 16 mmol/L | [facility] | | | | | | [facility] | | | | | | [facility]ICAL | | | | | | CENTER - | | | | | | LABORATORY | | + + + + + + | Glucose | 91 | 70 - 109 mg/dL | [facility] | | | | | | [facility] | | [facility] | | [facility] | | | | | | [facility] - | | | | | | LABORATORY | | + + + + + + | BUN | 10 | 7 - 18 mg/dL | [facility] | | | | | | [facility] | | | | | | [facility] | | | | | | CENTER - | | | | | | LABORATORY | | + + + + + + | Creatinine | 0.81 | 0.60 - 1.30 | [facility] | | | | | mg/dL | [facility] | | [facility] | | | [facility]ICAL | | | | | | CENTER - | | | | | | LABORATORY | | + + + + + + | eGFR if not | >60Comment: GLOMERULAR | >=60 | [place] | | | | FILTRATION | mL/min/1.73m2 | [facility] | | | [place] | RATE,ESTIMATED | | MEDICAL | | | | mL/min/1.18x9Bqws than | | CENTER - | | | | 60 Chronic kidney | | LABORATORY | | | | disease,if found over a | | | | | | 3-month period.Less than | | | | | | 15 Kidney failureFor | | | | | | | | | | | | Americans,multiply the | | | | | | calculated GFR by 1.21. | | | | | | | | | | + + + + + + | Calcium | 9.2 | 8.3 - 10.5 | [facility] | | | | | mg/dL | [facility] | | | | | | MEDICAL | | | | | | CENTER - | | | | | | LABORATORY | | + + + + + + | BUN/Creatin | 12.3 | | [facility] | | | ine Ratio | | | [facility] | | | | | | MEDICAL | | | | | | CENTER - | | | | | | LABORATORY | | + + + + + + + + | Specimen | + + | Blood | + + + + + + + | Performing | Address | City/State/Zipcode | Phone Number | | Organization | | | | + + + + + | [facility] | [address] | [place] | [phone] | | [facility] | | [address] | | | - LABORATORY | | | | + + + + + CBC w/ Auto Differential (12/18/2017 2:05 PM PDT) + + + + + + | Component | Value | Ref Range | Performed | Pathologist | | | | | At | Signature | + + + + + + | WBC | 8.3 | 4.0 - 11.0 K/uL | [facility] | | | | | | [facility] | | | | | | MEDICAL | | | | | | CENTER - | | | | | | LABORATORY | | + + + + + + | RBC | 4.85 | 3.70 - 5.20 | [facility] | | | | | M/uL | [facility] | | | | | | [facility] | | | | | | CENTER - | | | | | | LABORATORY | | + + + + + + | Hemoglobin | 15.1 | 11.5 - 16.0 | [facility] | | | | | g/dL | [facility] | | | | | | MEDICAL | | | | | | CENTER - | | | | | | LABORATORY | | + + + + + + | Hematocrit | 45.0 | 34.0 - 47.0 % | [facility] | | | | | | [facility] | | | | | | [facility] | | | | | | CENTER - | | | | | | LABORATORY | | + + + + + + | MCV | 92.8 | 83.0 - 101.0 fL | [facility] | | | | | | [facility] | | | | | | [facility] | | | | | | CENTER - | | | | | | LABORATORY | | + + + + + + | MCH | 31.1 | 28.0 - 35.0 pg | [facility] | | | | | | [facility] | | | | | | [facility]ICAL | | | | | | CENTER - | | | | | | LABORATORY | | + + + + + + | MCHC | 33.6 | 32.0 - 36.0 | [facility] | | | | | g/dL | [facility] | | | | | | [facility]ICAL | | | | | | CENTER - | | | | | | LABORATORY | | + + + + + + | RDW-CV | 12.1 | <15.0 % | [facility] | | | | | | [facility] | | | | | | [facility] | | | | | | CENTER - | | | | | | LABORATORY | | + + + + + + | RDW-SD | 41.7 | 35.1 - 46.3 fL | [facility] | | | | | | [facility] | | | | | | [facility] | | | | | | CENTER - | | | | | | LABORATORY | | + + + + + + | Platelet | 205 | 140 - 440 K/uL | [facility] | | | Count | | | [facility] | | | | | | [facility]ICAL | | | | | | CENTER - | | | | | | LABORATORY | | + + + + + + | MPV | 9.4 | 6.5 - 12.4 fL | [facility] | | | | | | [facility] | | | | | | [facility] | | | | | | CENTER - | | | | | | LABORATORY | | + + + + + + | % | 62.5 | 45.0 - 82.0 % | [facility] | | | Neutrophils | | | [facility] | | | | | | MEDICAL | | | | | | CENTER - | | | | | | LABORATORY | | + + + + + + | % | 28.2 | 20.0 - 45.0 % | [facility] | | | Lymphocytes | | | [facility] | | | | | | MEDICAL | | | | | | CENTER - | | | | | | LABORATORY | | + + + + + + | % Monocytes | 6.4 | 4.0 - 12.0 % | [facility] | | | | | | [facility] | | | | | | [facility] | | | | | | CENTER - | | | | | | LABORATORY | | + + + + + + | % | 1.8 | 0.0 - 5.0 % | [facility] | | | Eosinophils | | | [facility] | | | | | | MEDICAL | | | | | | CENTER - | | | | | | LABORATORY | | + + + + + + | % Basophils | 0.7 | 0.0 - 1.0 % | [facility] | | | | | | [facility] | | | | | | [facility] | | | | | | CENTER - | | | | | | LABORATORY | | + + + + + + | % Immature | 0.4Comment: For | 0.0 - 0.4 % | [facility] | | | Granulocyte | patients, use the | | [facility] | | | s | special reference ranges | | MEDICAL | | | | listed below. | | CENTER - | | | | | | LABORATORY | | + + + + + + | Absolute | 5.22 | 1.80 - 8.50 | [facility] | | | Neutrophils | | K/uL | [facility] | | | | | | MEDICAL | | | | | | CENTER - | | | | | | LABORATORY | | + + + + + + | Absolute | 2.35 | 0.60 - 3.20 | [facility] | | | Lymphocytes | | K/uL | [facility] | | | | | | MEDICAL | | | | | | CENTER - | | | | | | LABORATORY | | + + + + + + | Absolute | 0.53 | 0.00 - 1.00 | [facility] | | | Monocytes | | K/uL | [facility] | | | | | | MEDICAL | | | | | | CENTER - | | | | | | LABORATORY | | + + + + + + | Absolute | 0.15 | 0.00 - 0.40 | [facility] | | | Eosinophils | | K/uL | [facility] | | | | | | MEDICAL | | | | | | CENTER - | | | | | | LABORATORY | | + + + + + + | Absolute | 0.06 | 0.00 - 0.10 | [facility] | | | Basophils | | K/uL | [facility] | | | | | | MEDICAL | | | | | | CENTER - | | | | | | LABORATORY | | + + + + + + | Absolute | 0.03Comment: For | 0.00 - 0.03 | [facility] | | | Immature | patients, use | K/uL | [facility] | | | Granulocyte | the special reference | | MEDICAL | | | s | ranges listed below. | | CENTER - | | | | | | LABORATORY | | + + + + + + | % nRBC | 0 | 0 - 2 per 100 | [facility] | | | | | WBC's | [facility] | | | | | | MEDICAL | | | | | | CENTER - | | | | | | LABORATORY | | + + + + + + | Absolute | 0.00 | 0.00 - 0.01 | [facility] | | | nRBC | | K/uL | [facility] | | | | | | MEDICAL | | | | | | CENTER - | | | | | | LABORATORY | | + + + + + + + + | Specimen | + + | Blood | + + + + + | Narrative | Performed At | + + + | IMMATURE GRANULOCYTES - For patients, use the following | [facility] | | reference ranges: Trim. Absolute (K/uL) Percentage (%) | [facility] | | 1st 0.003-0.091 K/uL 0.0-0.9% 2nd 0.007-0.247 K/uL | [facility] | | 0.1-2.0% 3rd 0.018-0.456 K/uL 0.1-2.0% | - LABORATORY | + + + + + + + + | Performing | Address | City/State/Zipcode | Phone Number | | Organization | | | | + + + + + | [facility] | [address] | [place] | [phone] | | [facility] | | [address] | | | - LABORATORY | | | | + + + + + documented in this encounter Visit Diagnoses + + | Diagnosis | + + | Kidney stones - Primary Calculus of kidney | + + | Nephrolithiasis Calculus of kidney | + + documented in this encounter
--- OUTSIDE RECORDS SUMMARY | ~2019-08-05 | XMS | Encounter Summary ---
Demographics + + + | Address | [address] | | | [place] [address] | + + + | Home Phone | | + + + | Preferred Language | Unknown | + + + | Marital Status | Single | + + + | Jewish Affiliation | 1013 | + + + | Race | Unknown | + + + | Ethnic Group | Unknown | + + + Author + + + | Author | [facility] | | | and [place] | + + + | Organization | [facility] | | | [...] Team Providers + +------+ + | Care Palliative Medicine Physician Name | Role | Phone | + +------+ + | Chris De La Torre MD | PCP | | + +------+ + Reason for Referral Diagnostic/Screening (Routine) +--------+--------+ + + + + | Status | Reason | Specialty | Diagnoses / | Referred By | Referred To | | | | | Procedures | Contact | Contact | +--------+--------+ + + + + | Closed | | Radiology | Diagnoses | [place], | [address] | | | | | | Jerrell | [address] | | | | | Nephrolithia | MD [place]ita | [place], | | | | | sis | [address] | [place] [address] | | | | | Procedures | [address] [place] | Phone: | | | | | CT Renal | [place] | [phone] | | | | | [place] | [address] | Fax: | | | | | Contrast | Phone: | [phone] | | | | | [address] | [phone] | | | | | | SCAN,ABDOMEN | Fax: | | | | | | T AND | [phone] | | | | | | PELVIS,W/O | | | | | | | CONTRAST | | | +--------+--------+ + + + + Reason for Visit Diagnostic/Screening (Routine) +--------+--------+ + + + + | Status | Reason | Specialty | Diagnoses / | Referred By | Referred To | | | | | Procedures | Contact | Contact | +--------+--------+ + + + + | Closed | | Radiology | Diagnoses | [place], | [address] | | | | | | Jerrell | [address] | | | | | Nephrolithia | MD [place] | [place], | | | | | sis | [address] | [place] [address] | | | | | Procedures | [address] [place] | Phone: | | | | | CT Renal | [place] | [phone] | | | | | [address] [place] | [address] | Fax: | | | | | Contrast | Phone: | [phone] | | | | | [address] | [phone] | | | | | | SCAN,ABDOMEN | Fax: | | | | | | T AND | [phone] | | | | | | PELVIS,W/O | | | | | | | CONTRAST | | | +--------+--------+ + + + + Encounter Details +--------+ + + + + | Date | Type | Department | Care Team | Description | +--------+ + + + + | 11/19/ | Hospital | [facility] | Jerrell Hightower | Nephrolithiasis | | 2018 | Encounter | [facility] [address] | MD [place] [address] | | | | | [place], | [place], [place] | | | | | [place] [address] | [id number] | | | | | [phone] | | | +--------+ + + + [...] + + documented as of this encounter Medications at Time of Discharge [...] + + + +---------+ + + | montelukast | Take 10 mg by mouth | | 0 | | | | (SINGULAIR) 10 mg | Daily. | | | | 8 | | tablet | | | | [...] | + +--------+ + + + | CT RENAL STONE WO | Routin | 11/19/2017 | Nephrolithiasis | Results for this | | CONTRAST | e | 12:00 PM | | procedure are in the | | | | PDT | | results section. | + +--------+ + + + documented in this encounter Results CT Renal Stone Wo Contrast (11/19/2017 12:00 PM PDT) + + | Specimen | + + | | + + + + + | Narrative | Performed At | + + + | CT RENAL STONE WO CONTRAST 11/19/2017 11:56 AM HISTORY: new left | [facility] | | flank pain, eval for new stone on the left. COMPARISON: None. | | | PROTOCOL: Axial images of the abdomen and pelvis were obtained. | | | Coronal and sagittal reformations were acquired. FINDINGS: | | | LUNG BASE: The visualized lung bases are normal. HEPATOBILIARY: The | | | liver demonstrates normal parenchyma. The gallbladder is normal. No | | | evidence of intrahepatic or extrahepatic biliary ductal dilatation. | | | SPLEEN: Normal parenchyma. No evidence of mass or splenomegaly. | | | PANCREASE: Normal parenchyma. No evidence of pancreatic ductal | | | dilation. ADRENAL GLANDS: No evidence of nodule, mass or suspicious | | | thickening. KIDNEYS: A few nonobstructive calculi are seen on the | | | left. No evidence of left-sided hydronephrosis or hydroureter. Large | | | staghorn calculus is seen at the right distal pelvis/UPJ measuring 19 | | | mm. Smaller nonobstructive 4 mm calculus is seen in the upper pole | | | of the right kidney. Mild right-sided hydronephrosis and mild | | | inflammatory change seen surrounding the proximal right renal | | | collecting system and proximal right ureter. BOWEL: The stomach is | | | normal. Imaged small bowel and colon demonstrate no acute findings. | | | No evidence of dilatation to suggest obstruction or abnormal bowel | | | wall thickening. VASCULATURE: Limited visualization of the venous and | | | arterial structures show no gross abnormality within the confines of | | | a noncontrast CT. LYMPH NODES: No enlarged lymph nodes are | | | visualized within the omentum or retroperitoneum. PERITONEUM: There | | | is no evidence for free fluid or free air. REPRODUCTIVE: Left ovary | | | is larger than the right with a possible hemorrhagic cyst. SOFT | | | TISSUES: Body wall soft tissue structures are normal. BONES: There | | | are no acute osseous abnormalities. Mild bilateral sacroiliac | | | sclerosis IMPRESSION - Large staghorn calculus is seen at the | | | right distal pelvis/UPJ measuring 19 mm. Mild right-sided | | | hydronephrosis and mild inflammatory change seen surrounding the | | | proximal right renal collecting system and proximal right ureter. | | | Other smaller nonobstructive calculi are seen bilaterally. | | | Dictated and Signed by: Mike Méndez MD Electronically signed: | | | 11/19/2017 3:01 PM | | + + + + + | Procedure Note | + + | Huang, Rad Results In - 11/19/2017 3:[address] RENAL STONE WO CONTRAST 11/19/2017 | | 11:56 AMHISTORY: new left flank pain, eval for new stone on the left.COMPARISON: | | None.PROTOCOL: Axial images of the abdomen and pelvis were obtained. Coronal andsagittal | | reformations were acquired.FINDINGS:LUNG BASE: The visualized lung bases are normal. | | HEPATOBILIARY: The liver demonstrates normal parenchyma. The gallbladder isnormal. No | | evidence of intrahepatic or extrahepatic biliary ductal dilatation.SPLEEN: Normal | | parenchyma. No evidence of mass or splenomegaly.PANCREASE: Normal parenchyma. No | | evidence of pancreatic ductal dilation.ADRENAL GLANDS: No evidence of nodule, mass or | | suspicious thickening.KIDNEYS: A few nonobstructive calculi are seen on the left. No | | evidence ofleft-sided hydronephrosis or hydroureter. Large staghorn calculus is seen at | | theright distal pelvis/UPJ measuring 19 mm. Smaller nonobstructive 4 mm calculus isseen | | in the upper pole of the right kidney. Mild right-sided hydronephrosis andmild | | inflammatory change seen surrounding the proximal right renal collectingsystem and | | proximal right ureter.BOWEL: The stomach is normal. Imaged small bowel and colon | | demonstrate no acutefindings. No evidence of dilatation to suggest obstruction or | | abnormal bowelwall thickening.VASCULATURE: Limited visualization of the venous and | | arterial structures show nogross abnormality within the confines of a noncontrast | | CT.LYMPH NODES: No enlarged lymph nodes are visualized within the omentum | | orretroperitoneum. PERITONEUM: There is no evidence for free fluid or free | | air.REPRODUCTIVE: Left ovary is larger than the right with a possible hemorrhagiccyst. | | SOFT TISSUES: Body wall soft tissue structures are normal. BONES: There are no acute | | osseous abnormalities. Mild bilateral sacroiliacsclerosisIMPRESSION - Large staghorn | | calculus is seen at the right distal pelvis/UPJ measuring 19 mm.Mild right-sided | | hydronephrosis and mild inflammatory change seen surroundingthe proximal right renal | | collecting system and proximal right ureter.Other smaller nonobstructive calculi are | | seen bilaterally.Dictated and Signed by: Mike Méndez MD Electronically signed: | | 11/19/2017 3:01 PM | |gross abnormality within the confines of a noncontrast CT. | |LYMPH NODES: No enlarged lymph nodes are visualized within the omentum or | |retroperitoneum. | |PERITONEUM: There is no evidence for free fluid or free air. | |REPRODUCTIVE: Left ovary is larger than the right with a possible hemorrhagic | |cyst. | |SOFT TISSUES: Body wall soft tissue structures are normal. | |BONES: There are no acute osseous abnormalities. Mild bilateral sacroiliac | |sclerosis | | | |IMPRESSION - | | Large staghorn calculus is seen at the right distal pelvis/UPJ measuring 19 mm. | | | |Mild right-sided hydronephrosis and mild inflammatory change seen surrounding | |the proximal right renal collecting system and proximal right ureter. | | | |Other smaller nonobstructive calculi are seen bilaterally. | | | |Dictated and Signed by: Mike Méndez MD | | Electronically signed: 11/19/2017 3:01 PM | + + + +---------+ + + | Performing | Address | City/State/Zipcode | Phone Number | | Organization | | | | + +---------+ + + | [facility] | | | | + +---------+ + + documented in this encounter Visit Diagnoses + + | Diagnosis | + + | Nephrolithiasis Calculus of kidney | + + documented in this encounter"
--- OUTSIDE RECORDS SUMMARY | ~2019-08-05 | XMS | Encounter Summary ---
Demographics + + + | Address | [address] | | | [place] [address] | + + + | Home Phone | | + + + | Preferred Language | Unknown | + + + | Marital Status | Single | + + + | Cheondoism Affiliation | 1013 | + + + | Race | Unknown | + + + | Ethnic Group | Unknown | + + + Author + + + | Author | [facility] | | | and [place] | + + + | Organization | [facility] | | | [...] Team Providers + +------+ + | Care Distributed Generation Project Manager Name | Role | Phone | + +------+ + | Chris De La Torre MD | PCP | | + +------+ + Reason for Visit + + + | Reason | Comments | + + + | Follow-up | discuss 24 hr urine stone An. | + + + Encounter Details +--------+---------+ + + + | Date | Type | Department | Care Team | Description | +--------+---------+ + + + | 07/27/ | Office | [facility] | Jerrell Hightower | Nephrolithiasis | | 2019 | Visit | [address] | MD [place] [address] | (Primary Dx) | | | | [place] | [place] | | | | | [address] | [address] | | | | | [phone] | | | +--------+---------+ + + + Social History + + + +--------+ + | Tobacco Use | Types | Packs/Day | Years | Date | | | | | Used | | + + + +--------+ + | Former Smoker | Cigarettes | 0.1 | 6 | Quit: 2014 | + + + +--------+ + + [...] + + + | Blood Pressure | 118/74 | 07/27/2018 4:12 PM | | | | | PDT | | + + + + + | Pulse | 64 | 07/27/2018 4:12 PM | | | | | PDT | | + + + + + | Temperature | - | - | | + + + + + | Respiratory Rate | 17 | 07/27/2018 4:12 PM | | | | | PDT | | + + + + + | Oxygen Saturation | - | - | | + + + + + | Inhaled Oxygen | - | - | | | Concentration | | | | + + + + + | Weight | 114.2 kg (251 lb | 07/27/2018 4:12 PM | | | | 12.3 oz) | PDT | | + + + + + | Height | 157.5 cm (5' 2") | 07/27/2018 4:12 PM | | | | | PDT | | + + + + + | Body Mass Index | 46.05 | 07/27/2018 4:12 PM | | | | | PDT | | + + + + + documented in this encounter Progress Notes Jerrell Hightower MD - 07/27/2018 4:15 PM PDTFormatting of this note might be differ ent from the original. Chief Complaint Patient presents with Follow-up discuss 24 hr urine stone An. MITA Braden is a 37 y.o. female patient of Chris De La Torre MD here today for a follow up to review labs and 24 hr. Urine results. Patient with a history of nephrolithiasis Presents today to discuss her second 24-hour urine. Last 24-hour urine revealed extremely low urine volumes as well as low levels of magnesium and citrate. She has been concentrating on increasing her total urine volume as well as adding lemon jui ce to her water and supplementing with magnesium citrate. Today she denies any episodes of gross hematuria, no dysuria and no flank pain. Assessment Mariela was seen today for follow-up. Diagnoses and all orders for this visit: Nephrolithiasis Plan 24 urine results show improved magnesium levels as well as citrate. Patient has increased her total volume however she still needs to increase her water intake so that she produces a pproximately 1 more liter of urine per day. Patient will follow-up PRN. Past Medical History Past Medical History: Diagnosis Date Adverse effect of anesthesia low oxygen & low pulse after surgery Asthma Borderline diabetes resolved Hyperparathyroidism (HCC) Kidney stone 2018 Nephrolithiasis Obstructive sleep apnea on CPAP 12/24/2017 uses CPAP Polycystic ovarian syndrome PONV (postoperative nausea and vomiting) PTSD (post-traumatic stress disorder) Past Surgical History Past Surgical History: Procedure Laterality Date KIDNEY STONE SURGERY 2007 x 3 NEPHROSTOMY N/A 12/25/2017 Procedure: Right Percutaneous nephrolithotomy and cYSTOSCOPY URETEROSCOPY W/ LASER and Clark nt Placement; Surgeon: Jerrell Hightower MD; Location: [facility] MAIN OR partial parathyroidectomy 09/2017 TONSILLECTOMY AND ADENOIDECTOMY 2003 URETEROSCOPY Right 01/19/2018 Procedure: RIGHT URETEROSCOPY, LASER LITHOTRIPSY AND STENT; Surgeon: Jerrell Dumas MD; Location: [facility] MAIN OR Family History: Family History Problem Relation Age of Onset Prostate cancer Neg Hx Social History: Social History Socioeconomic History Marital status: Single Spouse name: Not on file Number of children: Not on file Years of education: Not on file Highest education level: Not on file Tobacco Use Smoking status: Former Smoker Packs/day: 0.10 Years: 6.00 Pack years: 0.60 Types: Cigarettes Last attempt to quit: 2013 Years since quittin.3 Smokeless tobacco: Never Used Substance and Sexual Activity Alcohol use: Yes Comment: 2 beers a year Drug use: No Sexual activity: Never Allergies Allergen Reactions Ceftriaxone Hives Erythromycin Other (See Comments) Stomach upset Latex Rash Medications: Current Outpatient Medications: albuterol (PROVENTIL HFA) 90 mcg/puff inhaler, Inhale 2 puffs into the lungs as needed for Wheezing., Disp: , Rfl: budesonide-formoterol (SYMBICORT) 160-4.5 mcg/puff inhaler, Inhale into the lungs 2 t imes daily., Disp: , Rfl: cholecalciferol (CHOLECALCIFEROL) 1000 units TABS, Take 3,000 Units by mouth Daily., D isp: , Rfl: EPINEPHrine auto-injector 0.3 mg/0.3 mL injection, Inject 0.3 mg into the muscle as ne eded., Disp: , Rfl: fexofenadine (CONCETTA) 180 mg tablet, Take 180 mg by mouth as needed., Disp: , Rfl: Inositol-D Chiro-Inositol (OVASITOL PO), Take 1 each by mouth Daily., Disp: , Rfl: Vit-Fe Fumarate-FA ( PO), Take 1 tablet by mouth Daily., Disp: , Rfl: promethazine (PHENERGAN) 25 mg tablet, Take 25 mg by mouth as needed., Disp: , Rfl: 0 ROS Gen.: No fever no chills GI: No nausea no vomiting : No dysuria no gross hematuria Cardio: No shortness of breath, no chest pain Objective BP 118/74 | Pulse 64 | Resp 17 | Ht 1.575 m (5' 2") | Wt 114.2 kg (251 lb 12.3 oz) | B NJ 46.05 kg/m General Appearance: Alert, cooperative, no distress, appears stated age, obese Head: Normocephalic, without obvious abnormality, atraumatic Eyes: conjunctiva/corneas clear, EOM's intact Lungs: Regular, unlabored breathing MS No CVA tenderness, no spinal tenderness, no scoliosis present Abdomen: Soft, non-tender, no masses Extremities: Extremities normal, atraumatic, no cyanosis, clubbing, mild bilateral edema in LE Neurologic: Gait normal, CN 2-12 grossly intact; Strength and sensation grossly normal in b ilateral upper and lower extremities Data: Stones were 50% calcium oxalate dihydrate, 15% calcium oxalate monohydrate and 35% calcium phosphate. CT scan the abdomen and pelvis July [...] side. Results for orders placed or performed during the hospital encounter of 01/19/18 POCT Test, Urine, QUAL Result Value Ref Range Test, Urine, POC Negative Negative Internal QC Acceptable Acceptable Specific [place], POC 1.010, 1.015, 1.020, 1.025 Lot Number [id number] Expiration Date 06/13/2019 Calculi Analysis Result Value Ref Range CALCULI SIZE Comment mm Stone Composition Comment Color Brown Calculi Weight 357.0 mg Ca Oxalate,Dihydrate 50 % Ca Oxalate,Monohydr. 15 % STONE CA PHOSPHATE 35 % Nidus No Nidus visualized Comment Note: Photo Comment CALCULI COMMENT Comment Please note Comment Disclaimer Comment Lab Results Component Value Date CREA 1.04 12/26/2017 Chris De La Torre MD's notes were reviewed in clinic today. No follow-ups on file.. This document was generated in part using voice recognition software. Frequent wrong word or sound-alike substitutions may have occurred due to the inherent limitations of the voice recognition software. Although I have attempted to edit the content, I have not thoroughly proofread this note, and associate professor of radiology errors are very likely to occur. CC: Chris De La Torre MD documented in this encounter Plan of Treatment Not on filedocumented as of this encounter Visit Diagnoses + + | Diagnosis | + + | Nephrolithiasis - Primary Calculus of kidney | + + documented in this encounter
--- OUTSIDE RECORDS SUMMARY | ~2019-08-05 | XMS | Encounter Summary ---
Demographics + + + | Address | [address] | | | [place] [address] | + + + | Home Phone | | + + + | Preferred Language | Unknown | + + + | Marital Status | Single | + + + | Shinto Affiliation | 1013 | + + + | Race | Unknown | + + + | Ethnic Group | Unknown | + + + Author + + + | Author | [facility] | | | and [place] | + + + | Organization | [facility] | | | and [...] Team Providers + +------+ + | Care Minibus Driver Name | Role | Phone | + +------+ + | Chris De La Torre MD | PCP | | + +------+ + Reason for Visit +---------+ + | Reason | Comments | +---------+ + | Post Op | Cystoscopy with stent removal for nephrolithiasis | +---------+ + Encounter Details +--------+---------+ + + + | Date | Type | Department | Care Team | Description | +--------+---------+ + + + | 01/27/ | Office | [facility] | Jerrell Hightower | Nephrolithiasis | | 2018 | Visit | [address] | MD [place] [address] | (Primary Dx) | | | | [place] | [place] | | | | | [address] | [address] | | | | | [phone] | | | +--------+---------+ + + + [...] + + + | Blood Pressure | 106/72 | 01/27/2018 1:22 PM | | | | | PST | | + + + + + | Pulse | 66 | 01/27/2018 1:22 PM | | | | | PST | | + + + + + | Temperature | - | - | | + + + + + | Respiratory Rate | 18 | 01/27/2018 1:22 PM | | | | | PST | | + + + + + | Oxygen Saturation | - | - | | + + + + + | Inhaled Oxygen | - | - | | | Concentration | | | | + + + + + | Weight | 110.4 kg (243 lb 6.2 | 01/27/2018 1:22 PM | | | | oz) | PST | | + + + + + | Height | 157.5 cm (5' 2") | 01/27/2018 1:22 PM | | | | | PST | | + + + + + | Body Mass Index | 44.52 | 01/27/2018 1:22 PM | | | | | PST | | + + + + + documented in this encounter Progress Notes Jerrell Hightower MD - 01/27/2018 1:30 PM PSTFormatting of this note might be differ ent from the original. Chief Complaint Patient presents with Post Op Cystoscopy with stent removal for nephrolithiasis HPI Mariela Braden is a 37 y.o. female patient of Chris De La Torre MD here today for a Post-Op Cystoscopy with stent removal for nephrolithiasis. Consent form signed & time out form completed Nephrolithiasis Cystoscopy Preprocedure timeout was performed. The patient's genitals were then prepped and draped us ual fashion. 10 mL's of viscous lidocaine was instilled per urethra. The scope was then in troduced into the urethra. The anterior urethra was grossly normal. Upon in the bladder th e right ureteral stone was visualized and using a pair of graspers was removed. The patient tolerated the procedure well. The stent was found to be intact. Assessment Mariela was seen today for post op. Diagnoses and all orders for this visit: Nephrolithiasis Plan We'll perform 24-hour urine. Past Medical History Past Medical History: Diagnosis Date Adverse effect of anesthesia low oxygen & low pulse after surgery Asthma Borderline diabetes resolved Hyperparathyroidism (HCC) Kidney stone Nephrolithiasis Obstructive sleep apnea on CPAP 12/24/2017 uses CPAP Polycystic ovarian syndrome PONV (postoperative nausea and vomiting) PTSD (post-traumatic stress disorder) Past Surgical History Past Surgical History: Procedure Laterality Date KIDNEY STONE SURGERY 2007 x 3 NEPHROSTOMY N/A 12/25/2017 Procedure: Right Percutaneous nephrolithotomy and cYSTOSCOPY URETEROSCOPY W/ LASER and Clark nt Placement; Surgeon: Jerrell Hightower MD; Location: [facility] MAIN OR partial parathyroidectomy 09/2017 TONSILLECTOMY AND ADENOIDECTOMY 2003 URETEROSCOPY Right 01/19/2018 Procedure: RIGHT URETEROSCOPY, LASER LITHOTRIPSY AND STENT; Surgeon: Jerrell Dumas MD; Location: [facility] MAIN OR Family History: Family History Problem Relation Age of Onset Prostate cancer Neg Hx Social History: Social History Social History Marital status: Single Spouse name: N/A Number of children: N/A Years of education: N/A Social History Main Topics Smoking status: Former Smoker Packs/day: 0.10 Years: 6.00 Types: Cigarettes Quit date: 2013 Smokeless tobacco: Never Used Alcohol use Yes Comment: 2 beers a year Drug use: No Sexual activity: No Other Topics Concern None Social History Narrative None Allergies Allergen Reactions Ceftriaxone Hives Erythromycin Other (See Comments) Stomach upset Latex Rash Medications: Current Outpatient Prescriptions: albuterol (PROVENTIL HFA) [...] Rfl: 0 Inositol-D Chiro-Inositol (OVASITOL PO), Take 1 each by mouth Daily., Disp: , Rfl: oxyCODONE-acetaminophen (PERCOCET) 5-325 mg per tablet, Take 1-2 tablets by mouth ever y 4 hours as needed for Pain., Disp: 30 tablet, Rfl: 0 oxyCODONE-acetaminophen (PERCOCET) 5-325 mg per tablet, Take 1-2 tablets by mouth ever y 4 hours as needed for Pain., Disp: 30 tablet, Rfl: 0 oxyCODONE-acetaminophen (PERCOCET) 5-325 mg per tablet, TK 1/2 TO 1 T PO Q 4 HOURS, Di sp: , Rfl: 0 Vit-Fe Fumarate-FA ( PO), Take 1 tablet by mouth Daily., Disp: , Rfl: promethazine (PHENERGAN) 25 mg tablet, Take 25 mg by mouth as needed., Disp: , Rfl: 0 scopolamine (TRANSDERM-SCOP) 1 mg/3 days patch, Place 1 patch onto the skin every 72 h ours., Disp: 5 patch, Rfl: 3 ROS Gen.: No fever no chills GI: No nausea no vomiting : No dysuria no gross hematuria Cardio: No shortness of breath, no chest pain Objective BP 106/72 | Pulse 66 | Resp 18 | Ht 1.575 m (5' 2") | Wt 110.4 kg (243 lb 6.2 oz) | BM I 44.52 kg/m General Appearance: Alert, cooperative, no distress, [...] Negative Negative Internal QC Acceptable Acceptable Specific [place], POC 1.010, 1.015, 1.020, 1.025 Lot Number [...] have not thoroughly proofread this note, and information engineer errors are very likely to occur. CC: Chris De La Torre MD documented in this encounter Plan of Treatment Not on filedocumented as of this encounter Visit Diagnoses + + | Diagnosis | + + | Nephrolithiasis - Primary Calculus of kidney | + + documented in this encounter
--- OUTSIDE RECORDS SUMMARY | ~2019-08-05 | XMS | Encounter Summary ---
Demographics + + + | Address | [address] | | | [place] [address] | + + + | Home Phone | | + + + | Preferred Language | Unknown | + + + | Marital Status | Single | + + + | Yarsani Affiliation | 1013 | + + + | Race | Unknown | + + + | Ethnic Group | Unknown | + + + Author + + + | Author | [facility] | | | and [place] | + + + | Organization | [facility] | | | [...] Team Providers + +------+ + | Care Die Drawing Checker Name | Role | Phone | + [...] | | | | Jerrell | [place] | | | | | Nephrolithia | MD Catr[place]ita | [place], | | | | | sis | [address] | [place] [address] | | | | | Procedures | [address] [place] | Phone: | | | | | CT Renal | [place] | [phone] | | | | | [place] | [address] | Fax: | | | | | Contrast | Phone: | [phone] | | | | | [address] | [phone] | | | | | | SCAN,ABDOMEN | Fax: | | | | | | T AND | [phone] | | | | | | PELVIS,W/O [...] | | | | Jerrell | [place] | | | | | Nephrolithia | MD [place]ita | [place], | | | | | sis | [address] | [place] [address] | | | | | Procedures | [address]VE [place] | Phone: | | | | | CT Renal | [place] | [phone] | | | | | [place] | [address] | Fax: | | | | | Contrast | Phone: | [phone] | | | | | [address] | [phone] | | | | | | SCAN,ABDOMEN | Fax: | | | | | | T AND | [phone] | | | | | | PELVIS,W/O | | | | | | | CONTRAST | | | +--------+--------+ + + + + Encounter Details +--------+ + + + + | Date | Type | Department | Care Team | Description | +--------+ + + + + | 11/19/ | Hospital | [facility] | Jerrell Hightower | Nephrolithiasis | | 2018 | Encounter | MED [facility] [address] | MD [place] [address] | | | | | [place], | [place], [place] | | | | | [place] [address] | [id number] | | | | | [phone] | | | +--------+ + + + [...]
--- OUTSIDE RECORDS SUMMARY | ~2019-08-05 | XMS | Encounter Summary ---
Demographics + + + | Address | [address] | | | [place] [address] | + + + | Home Phone | | + + + | Preferred Language | Unknown | + + + | Marital Status | Single | + + + | Latter-Day Affiliation | 1013 | + + + | Race | Unknown | + + + | Ethnic Group | Unknown | + + + Author + + + | Author | [facility] | | | and [place] | + + + | Organization | [facility] | | | and [...] Team Providers + +------+ + | Care Conference Manager Name | Role | Phone | [...] | | | | | | | Nephrolithia | | | | | | | sis ([id number]) | | | | | | | Procedures | | | | | | | AK PERCUT | | | | | | | REMV KID | | | | | | | STONE,UP TO | | | | | | | 2 CM Right | | | | | | | Percutaneous | | | | | | | | | | | | | | nephrolithot | | | | | | | silvio | | | +--------+--------+ + + + + Encounter Details +--------+ + + + + | Date | Type | Department | Care Team | Description | +--------+ + + + + | 12/25/ | Anesthesia | [facility] | Tom Astorga | | | 2017 | Event | [facility] | PMD [address] | | | | | [address] | [address] [place], [place] | | | | | [place] | [address] | | | | | [address] | [phone] | | | | | [phone] | | | +--------+ + + + + Anesthesia Record + + + + + | Procedure Name | Responsible | Anesthesia Start | Anesthesia Stop Time | | | Anesthesiologist | Time | | + + + + + | Right Percutaneous | Tom P Rizwan, | 12/25/17 0952 | 12/25/17 1344 | | nephrolithotomy and | MD | | | | cYSTOSCOPY | | | | | URETEROSCOPY W/ | | | | | LASER and Stent | | | | | Placement (N/A | | | | | Pelvis) | | | | + + + + + +----+---+ + + | Da | T | Event | Comment | | te | i | | | | | m | | | | | e | | | +----+---+ + + | 10 | 0 | | | | /1 | 9 | | | | 8/ | 4 | | | | 20 | 0 | | | | 18 | | | | +----+---+ + + | | 0 | An Checkout | Pre-use anesthesia machine/equipment checkout. | | | 9 | | | | | 4 | | | | | 3 | | | +----+---+ + + | | 0 | An Start | | | | 9 | Data | | | | 4 | | | | | 5 | | | +----+---+ + + | | 0 | An Start | Room ready, anesthesia equipment checked, essential drugs & | | | 9 | | equipment available. Patient Identity checked, anesthesia plan | | | 5 | | explained and consent obtained. Patient transported to OR, | | | 2 | | Monitors applied. Reassessment prior to anesthesia | | | | | induction/procedure. | +----+---+ + + | | 0 | an nik now | | | | 9 | | | | | 5 | | | | | 5 | | | +----+---+ + + | | 0 | AN | Per surgeon request. (Cipro in pre-op) | | | 9 | Antibiotic | | | | 5 | declined | | | | 6 | | | +----+---+ + + | | 0 | Preoxygenat | Oxygen administered, patient sedated, ventilating spontaneously. | | | 9 | ed | | | | 5 | | | | | 8 | | | +----+---+ + + | | 0 | An | | | | 9 | Induction | | | | 5 | | | | | 9 | | | +----+---+ + + | | 1 | An | Smooth IV induction, mask airway established. Direct Laryngoscopy | | | 0 | Intubation | , ETT placed. BSEB/ETCO2 (auscultation and capnography) to | | | 0 | | confirm placement. Depth noted. Ventilator on. | | | 0 | | | +----+---+ + + | | 1 | an nik now | Prone | | | 0 | | | | | 0 | | | | | 9 | | | +----+---+ + + | | 1 | Pre-Procedu | | | | 0 | ral Timeout | | | | 2 | Completed | | | | 2 | | | +----+---+ + + | | 1 | First | | | | 0 | Inc/Proc St | | | | 3 | | | | | 1 | | | +----+---+ + + | | 1 | Quick Note | Sats fall with passage of needle, BS checked, BSEB. No evidence | | | 1 | | of PTX at this time. | | | 2 | | | | | 7 | | | +----+---+ + + | | 1 | Breathing | | | | 3 | Spontaneous | | | | 0 | ly | | | | 8 | | | +----+---+ + + | | 1 | Oropharynx | | | | 3 | Suctioned | | | | 3 | | | | | 3 | | | +----+---+ + + | | 1 | Extubated | | | | 3 | Deep | | | | 3 | | | | | 5 | | | +----+---+ + + | | 1 | an nik now | | | | 3 | | | | | 4 | | | | | 0 | | | +----+---+ + + | | 1 | an stop | | | | 3 | data | | | | 4 | | | | | 0 | | | +----+---+ + + | | 1 | An Stop | Patient handed off to recovery nurse. | | | 4 | | | | | 4 | | | +----+---+ + + +------+ | Meds | +------+ + +---------+ | Name | Total | + +---------+ | midazolam | 2 mg | + +---------+ | propofol | 160 mg | + +---------+ | ketamine | 25 mg | + +---------+ | fentaNYL injection (2 mL) | 100 mcg | + +---------+ | HYDROmorphone | 2 mg | + +---------+ | rocuronium | 70 mg | + +---------+ | ondansetron | 4 mg | + +---------+ | dexamethasone | 8 mg | + +---------+ | tranexamic acid (CYKLOKAPRON) 1 g | 1 g | | in 50 mL NS IVPB (simple) | | + +---------+ | ketorolac | 30 mg | + +---------+ | lactated ringers (LR) infusion | 900 mL | + +---------+ + + | Name | + + | N2O Flow Rate (L/Min) | + + | O2 Flow Rate (L/Min) | + + | Insp O2 | + + | Exp SEV | + + | Air Flow Rate (L/Min) | + + + + | No blood administrations on file. | + + +--------+ + + + | Type | Details | Placement | Removal | +--------+ + + + | Periph | 12/25/17; 0818; Right; Distal; | 12/25/17 0818 by | 12/26/17 1157 by | | eral | Hand; [id number] catheter | Chandler Roberson, RN | Tiana Webb RN | | IV | system; 20 gauge; catheter/device | | | | | intact; expected removal post | | | | | discharge; 12/26/17; 1157 | | | +--------+ + + + | Airway | Placement Date: 12/25/17; | 12/25/17 1000 by | 12/25/17 1335 by | | | Placement Time: 1000 (created via | Tom P Skaarugarima, | Tom P Skaarugarima, | | | procedure documentation); Mask | MD | MD | | | Ventilation: EZ; Airway Grade: | | | | | 2a; Laryngoscope Blade Size: 3; | | | | | Attempts: 1; Airway Type: | | | | | endotracheal; Size: 6.5; Airway | | | | | Tube Secured At: 21; Trauma: | | | | | none; Other Equipment: stylette; | | | | | Placement Check: exhaled CO2 | | | | | detection device, video | | | | | laryngoscope, bilateral chest | | | | | rise, breath sounds equal | | | | | bilaterally; Removal Date: | | | | | 12/25/17; Removal Time: 1335; | | | | | Additional Comments: Neutral Head | | | | | Position, no neck flexion or | | | | | extension attempted. Smooth IV | | | | | induction, mask airway | | | | | established. Direct Laryngoscopy | | | | | with Lehman Laryngoscope, ETT | | | | | placed under video guidance. | | | | | BSEB/ETCO2 (auscultation and | | | | | capnography) to confirm | | | | | placement. Depth noted. | | | | | Ventilator on. | | | +--------+ + + + | Read | 12/25/17; 1310; vagina; Nothing | 12/25/17 1310 by | 12/25/17 1539 by | | only - | visual; 12/25/17; 1539 | Arnulfo Murphy RN | Chivo Dunaway RN | | | | | | | Incisi | | | | | on | | | | +--------+ + + + | Urethr | 12/25/17; 1319; indicated due to | 12/25/17 1319 by | 12/26/17 1005 by | | al | specific surgical procedure; All | Arnulfo Murphy RN | Tiana Webb RN | | Cathet | elements; All elements; All | | | | er | elements; indwelling double lumen | | | | | catheter; 22; 10; 10; tubing | | | | | intact; expected removal post | | | | | discharge; 12/26/17; 1005 | | | +--------+ + + + documented in this encounter Social History + + + +--------+ + [...] | + +--------+ + + + | ANE AIRWAY NOTE | Routin | 12/25/2017 | | Results for this | | | e | 10:24 AM | | procedure are in the | | | | PDT | | results section. | + +--------+ + + + documented in this encounter Results Anesthesia Airway Note (12/25/2017 10:24 AM PDT) + + + | Narrative | Performed At | + + + | Tom Astorga MD 12/25/2017 10:24 Anesthesia Airway | | | Placement 12/25/2017 10:00 Preprocedure check: patient | | | identified, oxygen, airway assessed, patient reassessment prior to | | | induction, airway equipment checked and suction Mask ventilation: | | | easy Successful technique: Lehman Laryngoscope blade size: 3 | | | Airway grade: 2a (Partial view of glottis) Other equipment: stylette | | | Attempts: 1 Airway type: endotracheal Size: 6.5 Cuffed: cuffed | | | Route, reference point: right side of mouth Tube depth: 21 cm Tube | | | secured with: adhesive tape Trauma: none Tube placement | | | verification: carbon dioxide detection, equal bilateral breath | | | sounds, bilateral chest rise and video laryngoscope Performing | | | provider: TOM ASTORGA Comments: Neutral Head Position, no | | | neck flexion or extension attempted. Smooth IV induction, mask | | | airway established. Direct Laryngoscopy with Lehman Laryngoscope, | | | ETT placed under video guidance. BSEB/ETCO2 (auscultation and | | | capnography) to confirm placement. Depth noted. Ventilator on. | | | Electronically Signed by: Tom Astorga MD | | | ESig date/time: 12/25/2017 10:24 | | | | | + + + + + | Procedure Note | + + | Tom Astorga MD - 12/25/2017 10:24 AM PDT Anesthesia Airway | | Aabgvjjkn55/18/2018 10:00Preprocedure check: patient identified, oxygen, airway | | assessed, patient reassessment prior to induction, airway equipment checked and | | suctionMask ventilation: easySuccessful technique: McGrathLaryngoscope blade size: 3 | | Airway grade: 2a (Partial view of glottis)Other equipment: styletteAttempts: 1Airway | | type: endotrachealSize: 6.5Cuffed: cuffedRoute, reference point: right side of mouthTube | | depth: 21 cmTube secured with: adhesive tapeTrauma: noneTube placement verification: | | carbon dioxide detection, equal bilateral breath sounds, bilateral chest rise and video | | laryngoscopePerforming provider: TOM ATSORGA PComments: Neutral Head Position, no | | neck flexion or extension attempted. Smooth IV induction, mask airway | | established.Direct Laryngoscopy with Lehman Laryngoscope, ETT placed under video | | guidance. BSEB/ETCO2 (auscultation and capnography) to confirm placement. Depth noted. | | Ventilator on.Electronically Signed by: Tom Astorga MD | | ESig date/time: 12/25/2017 10:24 | |Tube depth: 21 cm | |Tube secured with: adhesive tape | |Trauma: none | |Tube placement verification: carbon dioxide detection, equal bilateral breath sounds, bilat eral chest rise and video laryngoscope | |Performing provider: TOM ASTORGA | | | |Comments: Neutral Head Position, no neck flexion or extension attempted. | |Smooth IV induction, mask airway established. | |Direct Laryngoscopy with Lehman Laryngoscope, ETT placed under video guidance. BSEB/ETCO2 (auscultation and capnography) to confirm placement. Depth noted. Ventilator on. | | | | | |Electronically Signed by: Tom Astorga MD ESi date/time : 12/25/2017 10:24 | | | + + documented in this encounter Visit Diagnoses Not on filedocumented in this encounter Administered Medications + +--------+ +------+------+------+ | Medication Order | MAR | Action | Dose | Rate | Site | | | Action | Date | | | | + +--------+ +------+------+------+ | dexamethasone (DECADRON) 10 | Given | 12/26/19 | 8 mg | | | | mg/mL injection Intravenous, | | 18 9:56 | | | | | PRN, Starting Regine 12/25/17 at | | AM PDT | | | | | 0956, Anesthesia Intra-op | | | | | | + +--------+ +------+------+------+ +---+---+ | | | +---+---+ + +-------+ +--------+---+---+ | fentaNYL (PF) injection | Given | 12/26/19 | 50 mcg | | | | Intravenous, PRN, Pain, Starting | | 18 9:59 | | | | | Regine 12/25/17 at 0956, Anesthesia | | AM PDT | | | | | Intra-op | | | | | | + +-------+ +--------+---+---+ +-------+ +--------+---+---+ | Given | 12/26/19 | 50 mcg | | | | | 18 9:56 | | | | | | AM PDT | | | | +-------+ +--------+---+---+ +---+---+ | | | +---+---+ + +-------+ +--------+---+---+ | HYDROmorphone (DILAUDID) 2 | Given | 12/26/19 | 0.5 mg | | | | mg/mL injection Intravenous, | | 18 1:15 | | | | | PRN, Pain, Starting Regine 12/25/17 | | PM PDT | | | | | at 1000, Anesthesia Intra-op | | | | | | + +-------+ +--------+---+---+ +-------+ +--------+---+---+ | Given | 12/26/19 | 0.5 mg | | | | | 18 10:25 | | | | | | AM PDT | | | | +-------+ +--------+---+---+ | Given | 12/26/19 | 1 mg | | | | | 18 10:00 | | | | | | AM PDT | | | | +-------+ +--------+---+---+ +---+---+ | | | +---+---+ + +-------+ +-------+---+---+ | ketamine 50 mg/mL injection | Given | 12/26/19 | 25 mg | | | | Intravenous, PRN, Starting Regine | | 18 10:00 | | | | | 12/25/17 at 1000, Anesthesia | | AM PDT | | | | | Intra-op | | | | | | + +-------+ +-------+---+---+ +---+---+ | | | +---+---+ + +-------+ +-------+---+---+ | ketorolac (TORADOL) injection | Given | 12/26/19 | 30 mg | | | | Intravenous, PRN, Pain, Starting | | 18 1:15 | | | | | Regine 12/25/17 at 1315, Anesthesia | | PM PDT | | | | | Intra-op | | | | | | + +-------+ +-------+---+---+ +---+---+ | | | +---+---+ + +-------+ +------+---+---+ | midazolam (VERSED) 1 mg/mL | Given | 12/26/19 | 2 mg | | | | injection Intravenous, PRN, | | 18 9:50 | | | | | Anxiety, Starting Regine 12/25/17 at | | AM PDT | | | | | 0950, Anesthesia Intra-op | | | | | | + +-------+ +------+---+---+ +---+---+ | | | +---+---+ + +-------+ +------+---+---+ | ondansetron (ZOFRAN) injection | Given | 12/26/19 | 4 mg | | | | Intravenous, PRN, Nausea, | | 18 9:56 | | | | | Vomiting, Starting Regine 12/25/17 | | AM PDT | | | | | at 0956, Anesthesia Intra-op | | | | | | + +-------+ +------+---+---+ +---+---+ | | | +---+---+ + +-------+ +--------+---+---+ | propofol (DIPRIVAN) injection | Given | 12/26/19 | 160 mg | | | | Intravenous, PRN, Starting Regine | | 18 9:59 | | | | | 12/25/17 at 0959, Anesthesia | | AM PDT | | | | | Intra-op | | | | | | + +-------+ +--------+---+---+ +---+---+ | | | +---+---+ + +-------+ +-------+---+---+ | rocuronium (ZEMURON) injection | Given | 12/26/19 | 20 mg | | | | Intravenous, PRN, Ventilator | | 18 11:16 | | | | | Dyssynchrony, Starting Regine | | AM PDT | | | | | 12/25/17 at 0959, Anesthesia | | | | | | | Intra-op | | | | | | + +-------+ +-------+---+---+ +-------+ +-------+---+---+ | Given | 12/26/19 | 50 mg | | | | | 18 9:59 | | | | | | AM PDT | | | | +-------+ +-------+---+---+ +---+---+ | | | +---+---+ + +-------+ +-----+---+---+ | tranexamic acid in 50 mL NS | Given | 12/26/19 | 1 g | | | | (CYKLOKAPRON) IVPB (simple) | | 18 10:10 | | | | | Intravenous, Administer over 15 | | AM PDT | | | | | Minutes, PRN, Starting Regine | | | | | | | 12/25/17 at 1010, Anesthesia | | | | | | | Intra-op | | | | | | + +-------+ +-----+---+---+ +---+---+ | | | +---+---+ documented in this encounter"
--- OUTSIDE RECORDS SUMMARY | ~2019-08-05 | XMS | Clinical Summary ---
Demographics + + + | Address | [address] | | | [place] [address] | + + + | Home Phone | | + + + | Preferred Language | Unknown | + + + | Marital Status | Single | + + + | Jain Affiliation | 1013 | + + + | Race | Unknown | + + + | Ethnic Group | Unknown | + + + Author + + + | Author | [facility] | | | and [place] | + + + | Organization | [facility] | | | [...] Team Providers + +------+ + | Care Adult Caregiver Name | Role | Phone | + +------+ + | Chris De La Torre MD | PCP | | + +------+ + Allergies + + + + + + | Active Allergy | Reactions | Severity | Noted | Comments | | | | | Date | | + + + + + + | Ceftriaxone | Hives | Medium | 09/18/19 | | | | | | 18 | | + + + + + + | Erythromycin | Other (See Comments) | Medium | 10/31/19 | Stomach upset | | | | | 18 | | + + + + + + | Latex | Rash | Low | 12/24/19 | | | | | | 18 | | + + + + + + Medications + + + +---------+------+------+-------+ | Medication | Sig | Dispensed | Refills | Star | End | Statu | | | | | | t | Date | s | | | | | | Date | | | + + + +---------+------+------+-------+ | albuterol | Inhale 2 puffs into | | 0 | | | Activ | | (PROVENTIL HFA) 90 | the lungs as needed | | | | | e | | mcg/puff inhaler | for Wheezing. | | | | | | + + + +---------+------+------+-------+ | Vit-Fe | Take 1 tablet by | | 0 | | | Activ | | Fumarate-FA | mouth Daily. | | | | | e | | ( PO) | | | | | | | + + + +---------+------+------+-------+ | cholecalciferol | Take 3,000 Units by | | 0 | | | Activ | | (CHOLECALCIFEROL) | mouth Daily. | | | | | e | | 1000 units TABS | | | | | | | + + + +---------+------+------+-------+ | EPINEPHrine | Inject 0.3 mg into | | 0 | | | Activ | | auto-injector 0.3 | the muscle as | | | | | e | | mg/0.3 mL injection | needed. | | | | | | + + + +---------+------+------+-------+ | fexofenadine | Take 180 mg by mouth | | 0 | | | Activ | | (CONCETTA) 180 mg | as needed. | | | | | e | | tablet | | | | | | | + + + +---------+------+------+-------+ | Inositol-D | Take 1 each by mouth | | 0 | | | Activ | | Chiro-Inositol | Daily. | | | | | e | | (OVASITOL PO) | | | | | | | + + + +---------+------+------+-------+ | promethazine | Take 25 mg by mouth | | 0 | 09/08 | | Activ | | (PHENERGAN) 25 mg | as needed. | | | 08/27 | | e | | tablet | | | | 18 | | | + + + +---------+------+------+-------+ | | Inhale into the | | 0 | | | Activ | | budesonide-formotero | lungs 2 times daily. | | | | | e | | l (SYMBICORT) | | | | | | | | 160-4.5 mcg/puff | | | | | | | | inhaler | | | | | | | + + + +---------+------+------+-------+ Active Problems + + + | Problem | Noted Date | + + + | Obstructive sleep apnea on CPAP | 12/24/2017 | + + + + + | Overview: uses CPAP | + + + + + | Adverse effect of anesthesia - low oxygen & low pulse after | 12/24/2017 | | surgery | | + + + + + | Overview: low oxygen & low pulse after surgery | + + + + + | Polycystic ovarian syndrome | 12/24/2017 | + + + | PTSD (post-traumatic stress disorder) | 12/24/2017 | + + + | Obesity, Class III, BMI 40-49.9 (morbid obesity) | 12/24/2017 | + + + | Asthma | 11/18/2017 | + + + | Primary hyperparathyroidism | 2017 | + + + + + | Overview: Overview: | | Added automatically from request for surgery [id number] | + + + + + | Right nephrolithiasis | 01/20/2017 | + + + Immunizations + + + + | Name | Administration Dates | Next Due | + + + + | INFLUENZA QUADR | 12/16/2016 | | | W/PRES | | | | (PED/ADOL/ADULT) | | | | MULTIDOSE | | | + + + + | INFLUENZA, [id number], | 05/12/2009 | | | UNSPECIFIED | | | + + + + Family History + + +------+ + | Medical History | Relation | Name | Comments | + + +------+ + | Prostate cancer | Neg Hx | | | + + +------+ + Social History + + + +--------+ [...] | + + + + + | Vaccine: | | | | | Pneumococcal 19-64 | 6 | | | | (1 of 1 - PPSV23) | | | | + + + + + | Vaccine: | | | | | Dtap/Tdap/Td (1 - | 1 | | | | Tdap) | | | | + + + + + | Cervical Cancer | | | | | Screening (Pap) | 0 | | | + + + + + | Vaccine: Influenza | Completed | 05/19/2019, 12/16/2016, | | | | | 12/04/2015, Additional history | | | | | exists | | + + + + + Implants + +-------+--------+ +--------+--------+--------+ | Implanted | Type | Area | Manufacture | Device | Shelf | Model | | | | | r | | Expira | / | | | | | | Identi | tion | Serial | | | | | | fier | Date | / Lot | + +-------+--------+ +--------+--------+--------+ | Stent Uret W/Pstnr Frm 6 | Stent | Right: | HECTOR YOUNG | | 07/31/ | [id number] | | 2232 - [id number] | | | INCORPORATE | | 2020 | / | | Qty: 1 on 12/25/2017 by | | Ureter | D | | | /[id number] | | Jerrell Hightower MD at | | | | | | [address] | | [facility] | | | | | | | | [facility] | | | | | | | + +-------+--------+ +--------+--------+--------+ | Stent Uret W/Pstnr Frm 6 | Stent | Right: | HECTOR YOUNG | | 11/07/ | [id number] | | - [id number]: | | | INCORPORATE | | 2020 | / | | Qty: 1 on 01/19/2018 by | | Ureter | D | | | /[id number] | | Jerrell Hightower MD at | | | | | | [address] | | [facility] | | | | | | | | [facility] | | | | | | | + +-------+--------+ +--------+--------+--------+ Results Not on filefrom Last 3 Months [...] + +------+ | MODA | MODA | [id number] | 03/10/19 | [phone] | [address] | PPO | | | AFFINI | | 18-Pre | 9 | [address] | | | | [place] | | sent | | [place], | | | | [place] | | | | [place] [address] | | | | STONE | | | | | | | | EPO | | | | | | +-------+--------+ +--------+ + +------+ + +--------+ +--------+ + + | Guarantor Name | Accoun | Relation to | Date | Phone | Billing Address | | | t Type | Patient | of | | | | | | | | | | + +--------+ +--------+ + + | Mariela Braden | Person | Self | [birth year] | [address] | | al/Fam | | 1981 | [phone] | [place], [place] | | | [place] | | | [address] (Home) | [address] | + +--------+ +--------+ + + Advance Directives + + + + + | Type | Date Recorded | Patient | Explanation | | | | Cert Occupational Therapy Asst | | + + + + + | Power of | | | | | Csm Consultant | | | | + + + + + | Advance | 11/19/2017 11:47 | | | | Directive | AM | | | + + + + + + + + + + | Code Status | Date | Date | Comments | | | Activated | Inactivated | | + + + + + | Full Code | 01/19/2018 | 01/19/2018 | | | | 5:45 PM | 8:47 PM | | + + + + + + + + +---+ | | | | | + + + +---+ | Full Code | 12/25/2017 | 12/26/2017 | | | | 3:39 PM | 2:21 PM | | + + + +---+
--- OUTSIDE RECORDS SUMMARY | ~2019-08-05 | XMS | Encounter Summary ---
Demographics + + + | Address | [address] | | | [place] [address] | + + + | Home Phone | | + + + | Preferred Language | Unknown | + + + | Marital Status | Single | + + + | Jehovah'S Witness Affiliation | 1013 | + + + | Race | Unknown | + + + | Ethnic Group | Unknown | + + + Author + + + | Author | [facility] | | | and [place] | + + + | Organization | [facility] | | | [...] Team Providers + +------+ + | Care Computer Equipment Repairer Name | Role | Phone | + [...] + + | 12/18/ | Office | [facility] | Jerrell Hightower | Kidney stones | | 2018 | Visit | [address] | [place] [address] | (Primary Dx); | | | | [place] | [place] | Nephrolithiasis | | | | [address] | [id number] | | | | | [phone] | | | +--------+---------+ + + + [...] December 25, 2017 at 9:00 AM at [facility]. Please report to [facility] no [...] and UA. Please g o to the [facility] today to complete these tests. Call us at [phone] with any questions. [x] Pain management booklet [...] UA, POC Negative Negative, 100 mg/dL Specific [place], UA, POC 1.020 1.001 - 1.030 Blood, [...] have not thoroughly proofread this note, and hair dresser errors are very likely to occur. CC: [...] - 1.030 | [facility] | | | [place], | | | [facility] | | [...] ST. | [address] | [place], [place] | [phone] | | [facility] | | [address] | | | - LABORATORY | | [...] | 0.81 | 0.60 - 1.30 | [facility] | | | | | mg/dL | [facility] | | | | | | [facility] | | | | | | C[facility] - | | | | | | LABORATORY | | + + + + + + | eGFR if not | >60Comment: GLOMERULAR | >=60 | [facility] | | | | FILTRATION | mL/min/1.73m2 | [facility] | | | [place] | RATE,ESTIMATED | | MEDICAL | | | | mL/min/1.22i3Bmvh than | | CENTER - | | [...] + | [facility] | [address] | [place] | [phone] | | [facility] | | [address] | | | - LABORATORY | | [...] ranges: Trim. Absolute (K/uL) Percentage (%) | [facility] | | 1st 0.003-0.091 K/uL 0.0-0.9% 2nd 0.007-0.247 K/uL | [facility] | | 0.1-2.0% 3rd 0.018-0.456 K/uL 0.1-2.0% | - LABORATORY | + + + + + + + + | Performing | Address | City/State/Zipcode | Phone Number | | Organization | | | | + + + + + | [facility] | [address] | [place] | [phone] | | [facility] | | [address] | | | - LABORATORY | | | | + + + + + documented in this encounter Visit Diagnoses + + | Diagnosis | + + | Kidney stones - Primary Calculus of kidney | + + | Nephrolithiasis Calculus of kidney | + + documented in this encounter
--- OUTSIDE RECORDS SUMMARY | ~2019-08-05 | XMS | Encounter Summary ---
Demographics + + + | Address | [address] | | | [place] [address] | + + + | Home Phone | | + + + | Preferred Language | Unknown | + + + | Marital Status | Single | + + + | Taoist Affiliation | 1013 | + + + | Race | Unknown | + + + | Ethnic Group | Unknown | + + + Author + + + | Author | [facility] | | | and [place] | + + + | Organization | [facility] | | | [...] Team Providers + +------+ + | Care Process Cheese Cooker Name | Role | Phone | + [...] | | | | Jerrell | [address] | | | | | Nephrolithia | MD [place] | [place], | | | | | sis | [address] | [place] [address] | | | | | Procedures | [address] | Phone: | | | | | CT Renal | [facility], [place] | [phone] | | | | | [place] | [address] | Fax: | | | | | Contrast | Phone: | [phone] | | | | | [address] | [phone] | | | | | | SCAN,ABDOMEN | Fax: | | | | | | T AND | [phone] | | | | | | PELVIS,W/O | | | | | | | CONTRAST | | | +--------+--------+ + + + + Reason for Visit + + + | Reason | Comments | + + + | Nephrolithiasis | | + + + Encounter Details +--------+ + + + + | Date | Type | Department | Care Team | Description | +--------+ + + + + | 01/01/ | Telephone | [facility] | Jerrell Hightower | Nephrolithiasis | | 2018 | | [address] | MD [place] [address] | | | | | [place] | [place] | | | | | [address] | [address] | | | | | [phone] | | | +--------+ + + + [...] on filedocumented as of this encounter Results CT Renal Stone Wo Contrast (01/13/2018 11:01 AM PST) + + | Specimen | + + | | + + + + + | Narrative | Performed At | + + + | CT RENAL STONE WO CONTRAST 01/13/2018 10:51 AM HISTORY: Evaluate | [facility] | | for residual stone. COMPARISON: 11/19/2017. PROTOCOL: Axial | | | images of the abdomen and pelvis were obtained. Coronal and sagittal | | | reformations were acquired. FINDINGS: Chest base is normal. | | | Imaged liver demonstrates normal parenchyma. The gallbladder is | | | normal. Biliary ducts are unremarkable. Imaged spleen is | | | unremarkable. The pancreas demonstrates normal parenchyma and a | | | normal pancreatic duct. Adrenal glands are normal. There is a | | | lobular hyperdense collection originating from the superior aspect of | | | the right kidney measuring 4.2 x 4.7 x 4.5 cm (AP, transverse, | | | craniocaudal) that has the appearance of hematoma. There are some | | | residual staghorn calculi within the renal pelvis measuring up to 14 | | | mm along the inferior aspect. A right ureteral stent is observed | | | extending from the renal pelvis into the bladder. A tiny | | | nonobstructing stone is in the lower pole of the left kidney. The | | | ureter is normal. Stomach, small bowel, and terminal ileum are | | | normal. The appendix is not well seen. Colon is unremarkable. | | | Aorta is nonaneurysmal. The iliac arteries are normal. There is no | | | significant abnormality in the portal veins, mesenteric veins, or | | | systemic veins. No enlarged lymph nodes are visualized within the | | | omentum or retroperitoneum. There is no evidence for ascites or | | | free air. Bladder is normal otherwise. Uterus and adnexa are | | | normal. Body wall soft tissue structures are normal. There are no | | | acute osseous abnormalities. IMPRESSION - Lobular hyperdense | | | collection originating from the superior aspect of the right kidney | | | measuring 4.2 x 4.7 x 4.5 cm that has the appearance of hematoma. | | | Some residual staghorn calculi within the right renal pelvis measuring | | | up to 14 mm along the inferior aspect. A right ureteral stent is | | | observed extending from the renal pelvis into the bladder with no | | | evidence for tracking stones. A tiny nonobstructing stone in the | | | lower pole of the left kidney. A Critical Document Only message | | | has been documented for JERRELL AGUILAR ENIDWING in the [employer] | | | | Critical Result system on 01/13/2018 12:29 PM, Message ID [id number]. | | | Dictated and Signed by: Jesus Paz MD Electronically signed: | | | 01/13/2018 12:29 PM | | + + + + + | Procedure Note | + + | Huang, Rad Results In - 01/13/2018 12:[address] RENAL STONE WO CONTRAST 01/13/2018 | | 10:51 AMHISTORY: Evaluate for residual stone.COMPARISON: 11/19/2017.PROTOCOL: Axial | | images of the abdomen and pelvis were obtained. Coronal andsagittal reformations were | | acquired.FINDINGS:Chest base is normal.Imaged liver demonstrates normal parenchyma. The | | gallbladder is normal. Biliaryducts are unremarkable.Imaged spleen is unremarkable. The | | pancreas demonstrates normal parenchyma and anormal pancreatic duct. Adrenal glands are | | normal.There is a lobular hyperdense collection originating from the superior aspect | | ofthe right kidney measuring 4.2 x 4.7 x 4.5 cm (AP, transverse, craniocaudal)that has | | the appearance of hematoma. There are some residual staghorn calculiwithin the renal | | pelvis measuring up to 14 mm along the inferior aspect. A rightureteral stent is | | observed extending from the renal pelvis into the bladder.A tiny nonobstructing stone is | | in the lower pole of the left kidney. The ureteris normal.Stomach, small bowel, and | | terminal ileum are normal. The appendix is not wellseen. Colon is unremarkable.Aorta is | | nonaneurysmal. The iliac arteries are normal. There is no significantabnormality in the | | portal veins, mesenteric veins, or systemic veins. No enlarged lymph nodes are | | visualized within the omentum or retroperitoneum.There is no evidence for ascites or | | free air.Bladder is normal otherwise.Uterus and adnexa are normal.Body wall soft tissue | | structures are normal. There are no acute osseousabnormalities.IMPRESSION -Lobular | | hyperdense collection originating from the superior aspect of the rightkidney measuring | | 4.2 x 4.7 x 4.5 cm that has the appearance of hematoma.Some residual staghorn calculi | | within the right renal pelvis measuring up to 14mm along the inferior aspect. A right | | ureteral stent is observed extending fromthe renal pelvis into the bladder with no | | evidence for tracking stones.A tiny nonobstructing stone in the lower pole of the left | | kidney.A Critical Document Only message has been documented for JERRELL HIGHTOWERin | | the [employer] | Critical Result system on 01/13/2018 12:29 PM, MessageID | | [id number].Dictated and Signed by: Jesus Paz MD Electronically signed: 01/13/2018 12:29 | | PM | |Stomach, small bowel, and terminal ileum are normal. The appendix is not well | |seen. Colon is unremarkable. | | | |Aorta is nonaneurysmal. The iliac arteries are normal. There is no significant | |abnormality in the portal veins, mesenteric veins, or systemic veins. | | | |No enlarged lymph nodes are visualized within the omentum or retroperitoneum. | | | |There is no evidence for ascites or free air. | | | |Bladder is normal otherwise. | | | |Uterus and adnexa are normal. | | | |Body wall soft tissue structures are normal. There are no acute osseous | |abnormalities. | | | |IMPRESSION - | |Lobular hyperdense collection originating from the superior aspect of the right | |kidney measuring 4.2 x 4.7 x 4.5 cm that has the appearance of hematoma. | | | |Some residual staghorn calculi within the right renal pelvis measuring up to 14 | |mm along the inferior aspect. A right ureteral stent is observed extending from | |the renal pelvis into the bladder with no evidence for tracking stones. | | | |A tiny nonobstructing stone in the lower pole of the left kidney. | | | |A Critical Document Only message has been documented for JERRELL HIGHTOWER | |in the [employer] | Critical Result system on 01/13/2018 12:29 PM, Message | |ID [id number]. | | | |Dictated and Signed by: Jesus Paz MD | | Electronically signed: 01/13/2018 12:29 PM | + + + +---------+ + [...]
--- OUTSIDE RECORDS SUMMARY | ~2019-08-05 | XMS | Clinical Summary ---
Demographics + + + | Address | [address] | | | [place] [address] | + + + | Home Phone | | + + + | Preferred Language | Unknown | + + + | Marital Status | Single | + + + | Pentecostalism Affiliation | UNK | + + + [...] Team Providers + +------+ + | Care Business Services Assistant Name | Role | Phone | + +------+ + | Chris De La Torre MD | PCP | | + +------+ + Source Comments [facility] is fully live on both [facility] and [facility] Allergies + + + + [...] 0 | | | Activ | | [id number] | | | | | | e [...] | Added automatically from request for surgery [id number] | + + + + + | [...] | MODA | [phone] | 05/09[birth year] | [phone] | [address] | [address] | | | [place]FFINI | | [address] | [address] | [address] | | | | [place] | | sent | | [place], | | | | | | | | [place] [address] | | +-------+--------+ +--------+ + +------+ + [...] | 1981 | [phone] | [place] [address] | | | [place] | | | [address] (Home) | | + +--------+ +--------+ + +
--- OUTSIDE RECORDS SUMMARY | ~2019-08-05 | XMS | Encounter Summary ---
Demographics + + + | Address | [address] | | | [place] [address] | + + + | Home Phone | | + + + | Preferred Language | Unknown | + + + | Marital Status | Single | + + + | Temple Affiliation | 1013 | + + + | Race | Unknown | + + + | Ethnic Group | Unknown | + + + Author + + + | Author | [facility] | | | and [place] | + + + | Organization | [facility] | | | and [...] Team Providers + +------+ + | Care Industrial Coffee Grinder Name | Role | Phone | + [...] | | | | | | | [place] | | | | | | [...] + + + + | 12/25/ | Hospital | [facility] | Jerrell Hightower | Right kidney stone | | 2018 - | Encounter | [facility] | MD [address] | | | | | [address] | [address] [place] | | | 12/26/ | | [place] [address] | [address] | | | 2017 | | [phone] | | | +--------+ + + + [...] + + + | Blood Pressure | 108/69 | 12/26/2017 7:53 AM | | | | | PDT | | + + + + + | Pulse | 88 | 12/26/2017 9:27 AM | | | | | PDT | | + + + + + | Temperature | 36.6 C (97.9 F) | 12/26/2017 7:53 AM | | | | | PDT | | + + + + + | Respiratory Rate | 16 | 12/26/2017 9:27 AM | | | | | PDT | | + + + + + | Oxygen Saturation | 97% | 12/26/2017 9:27 AM | | | | | PDT | | + + + + + | Inhaled Oxygen | - | - | | | Concentration | | | | + + + + + | Weight | 113 kg (249 lb 1.9 | 12/25/2017 7:30 AM | | | | oz) | PDT | | + + + + + | Height | 157.5 cm (5' 2") | 12/25/2017 7:30 AM | | | | | PDT | | + + + + + | Body Mass Index | 45.56 | 12/25/2017 7:30 AM | | | | | PDT | [...] + +---------+ + + | | Take 1 tablet by | 14 | 0 | 12/27/19 | | | sulfamethoxazole-tri | mouth 2 times daily | tablet | | 18 | 8 | | methoprim (BACTRIM | for 7 days. | | | | | | DS) 800-160 mg per | | | | | [...] documented as of this encounter Progress Notes Tiana Webb RN - 12/26/2017 12:04 PM PDTAVS and prescriptions reviewed with and give n to patient. All questions answered. Personal belongings gathered and sent home. Pt elayne bourgeois home with sister in a safe manner. Electronically signed by: Tiana Webb RN 2017 12:05 documente d in this encounter Plan of Treatment Not on filedocumented as of this encounter Procedures + +--------+ + + + | Procedure Name | Priori | Date/Time | Associated Diagnosis | Comments | | | ty | | | | + +--------+ + + + | CBC NO DIFFERENTIAL | Routin | 12/26/2017 | | Results for this | | | e | 5:59 AM | | procedure are in the | | | | PDT | | results section. | + +--------+ + + + | BASIC METABOLIC | Routin | 12/26/2017 | | Results for this | | PANEL | e | 5:59 AM | | procedure are in the | | | | PDT | | results section. | + +--------+ + + + | CALCULI ANALYSIS | Routin | 12/25/2017 | | Results for this | | | e | 3:58 PM | | procedure are in the | | | | PDT | | results section. | + +--------+ + + + | CBC NO DIFFERENTIAL | Routin | 12/25/2017 | | Results for this | | | e | 1:54 PM | | procedure are in the | | | | PDT | | results section. | + +--------+ + + + | FL PYELOGRAM | Routin | 12/25/2017 | | Results for this | | RETROGRADE | e | 1:28 PM | | procedure are in the | | | | PDT | | results section. | + +--------+ + + + | US UNLISTED | Routin | 12/25/2017 | Right kidney stone | Results for this | | PROCEDURE | e | 12:35 PM | | procedure are in the | | | | PDT | | results section. | + +--------+ + + + | TYPE AND SCREEN | STAT | 12/25/2017 | | Results for this | | | | 10:24 AM | | procedure are in the | | | | PDT | | results section. | + +--------+ + + + | PERCUTANEOUS | | 12/25/2017 | Nephrolithiasis | | | NEPHROSTOMY / | | 9:55 AM | (N20.0) | | | NEPHROLITHOTOMY | | PDT | | | + +--------+ + + + +---+--------+ | | Case | | | Notes | | | | | | Glendy | | | | | | called | | | 12/18 | | | and | | | added | | | ureter | | | oscopy | | | with | | | laser | | | and | | | possib | | | le | | | stent | | | plcmen | | | t to | | | proced | | | ure | +---+--------+ | | | | | Specia | | | l | | | Needs | | | Dr | | | Gillha | | | m to | | | assist | | | | | | (Inter | | | ventio | | | nal | | | Radiol | | | faviola) | +---+--------+ + +--------+ +---+ + | POC GLUCOSE | Routin | 12/25/2017 | | Results for this | | | e | 8:17 AM | | procedure are in the | | | | PDT | | results section. | + +--------+ +---+ + | POCT TEST, | Routin | 12/25/2017 | | Results for this | | URINE, QUAL | e | 7:53 AM | | procedure are in the | | | | PDT | | results section. | + +--------+ +---+ + | ECG 12 LEAD | Routin | 12/25/2017 | | Results for this | | | e | 7:48 AM | | procedure are in the | | | | PDT | | results section. | + +--------+ +---+ + documented in this encounter Results Basic Metabolic Panel (12/26/2017 5:59 AM PDT) + + + + + + | Component | Value | Ref Range | Performed | Pathologist | | | | | At | Signature | + + + + + + | Na | 136 | 136 - 149 | [facility] | [...] + + + + | Cl | 105 | 98 - 109 mmol/L | [facility] - | | | | | | LAB[facility]ATORY | | + + + + + + | CO2 | 24 | 24 - 31 mmol/L | [facility] [...] + + + + | Glucose | 123 (H) | 70 - 109 mg/dL | [facility] | | | | | [facility] | [facility] | [facility] | | | | | | [facility] - | | | | | | LABORATORY | | + + + + + + | BUN | 16 | 7 - 18 mg/dL | [facility] | | | | | | [facility] | | [facility] | [facility] | | | | | | [facility] - | | | | | | LABORATORY | | + + + + + + | Creatinine | 1.04 | 0.60 - 1.30 | [facility] | | | | | mg/dL | [facility] | | | | | [facility] | | | | | | [facility] - | | | | | | LABORATORY | | + + + + + + | eGFR if not | 59 (L)Comment: | >=60 | [facility] | | | | GLOMERULAR FILTRATION | mL/min/1.73m2 | [facility] | | | ANGUILLAN | RATE,ESTIMATED | | MEDICAL | | | | mL/min/1.23g6Cefl than | | CENTER - | | [...] + + + + | Calcium | 8.1 (L) | 8.3 - 10.5 | [facility] | | | | | mg/dL | [facility] | [facility] | [facility] | | | | | | [facility] - | | | | | | LABORATORY | | + + + + + + | BUN/Creatin | 15.4 | | [facility] | | | ine [...] + | [facility] | [address] | [place], [place] | [phone] | | [facility] | | [address] | | | - LABORATORY | | | | + + + + + CBC no Differential (12/26/2017 5:59 AM PDT) + + + + + + | Component | Value | Ref Range | Performed | Pathologist | | | | | At | Signature | + + + + + + | WBC | 19.2 (H) | 4.0 - 11.0 K/uL | [facility] | | | | | | [facility] | | | | | | [facility] - | | | | | | LABORATORY | | + + + + + + | RBC | 3.64 (L) | 3.70 - 5.20 | [facility] | | | | | M/uL | [facility] | | [facility] | [facility] | | | | | | [facility] - | | | | | | LABORATORY | | + + + + + + | Hemoglobin | 11.2 (L) | 11.5 - 16.0 | [facility] | | | | | g/dL | [facility] | [facility] | [facility] | | | | | | [facility] - | | | | | | LABORATORY | | + + + + + + | Hematocrit | 33.7 (L) | 34.0 - 47.0 % | [facility] | | | | | | [facility] | | [facility] | [facility] | | | | | | [facility] - | | | | | | LABORATORY | | + + + + + + | MCV | 92.6 | 83.0 - 101.0 fL | [facility] | | | | | | [facility] | [facility] | [facility] | | | | | | [facility] - | | | | | | LABORATORY | | + + + + + + | MCH | 30.8 | 28.0 - 35.0 pg | [facility] | | | | | | [facility] | | | [facility] | [facility] | | | | | | [facility] - | | | | | | LABORATORY | | + + + + + + | MCHC | 33.2 | 32.0 - 36.0 | [facility] | | | | | g/dL | [facility] | [facility] | [facility] | | | | | | [facility] - | | | | | | LABORATORY | | + + + + + + | RDW-CV | 11.9 | <15.0 % | [facility] | | | | | [facility] | [facility] | [facility] | | | | | | [facility] - | | | | | | LABORATORY | | + + + + + + | RDW-SD | 40.4 | 35.1 - 46.3 fL | [facility] | | | | | [facility] | [facility] | [facility] | | | | | | [facility] - | | | | | | LABORATORY | | + + + + + + | Platelet | 165 | 140 - 440 K/uL | [facility] | | | Count | | | [facility] | [facility] | [facility] | | | | | | [facility] - | | | | | | LABORATORY | | + + + + + + | MPV | 10.0 | 6.5 - 12.4 fL | [facility] [...] | | | | | WBC's | [facility] | | | | [...] + | [facility] | [address] | [place] | [phone] | | [facility] | | [address] | | | - LABORATORY | | | | + + + + + Calculi Analysis (12/25/2017 3:58 PM PDT) + + + + + + | Component | Value | Ref Range | Performed | Pathologist | | | | | At | Signature | + + + + + + | CALCULI | CommentComment: Specimen | mm | REFERENCE | | | SIZE | received as whole | | LAB [facility] | | | | stones. | | - BKR | | + + + + + + | Stone | CommentComment: | | REFERENCE | | | Composition | Percentage (Represents | | [facility] | | | | the % composition) | | - BKR | | + + + + + + | Color | Hernández | | REFERENCE | | | | | | [facility] | | | | | | - BKR | | + + + + + + | Calculi | 47.4 | mg | REFERENCE | | | Weight | | | [facility] | | | | | | - BKR | | + + + + + + | Ca | 62 | % | REFERENCE | | | Oxalate,Dih | | | [facility] | | | ydrate | | | - BKR | | + + + + + + | Ca | 03 | % | REFERENCE | | | [...] | | | | | | of thespecimen.Blood | | | | | | was observed on exterior | | | | | | of specimen. | | | | + + + [...] BKR | | | | Analysis contact [facility] | | | | | | at:[phone]. | | | | + + + + + + | Please note | CommentComment: Calculi | | REFERENCE | | | | report with photograph | | [facility] | | | | will follow via | | - BKR | | | | computer, mail orcourier | | | | | | delivery. | | | | + + + + + + | Disclaimer | CommentComment: This | | REFERENCE | | | | test was developed and | | [facility] | | | | its performance | | - BKR | | | | characteristicsdetermine | | | | | | d by [facility]. It has not | | | | | | been cleared or | | | | | | approvedby the Food and | | | | | | Drug Administration. | | | | + + + + + + + + | Specimen | + + | Tissue - Specimen | | from right kidney, | | superior pole | | obtained by partial | | nephrectomy | | (specimen) | + + + + + | Narrative | Performed At | + + + | Performed at: 01 - [facility] [address], | REFERENCE LAB | | [place], [place] [id number] [employer] Stringing Machine Operator: Gene Orozco MD, Phone: | [facility] [place] | | [phone] | | + + + + + + + + | Performing | Address | City/State/Zipcode | Phone Number | | Organization | | | | + + + + + | REFERENCE LAB | [address] | [place] | [phone] | | [facility] | [address] [place] | [address] | | + + + + + CBC no Differential (12/25/2017 1:54 PM PDT) + +-------+ + + + | Component | Value | Ref Range | Performed | Pathologist | | | | | At | Signature | + +-------+ + + + | WBC | 7.8 | 4.0 - 11.0 K/uL | [facility] | | | | | [facility] | | | | | [facility] - | | | | | | LABORATORY | | + +-------+ + + + | RBC | 4.23 | 3.70 - 5.20 | [facility] | | | | | M/uL | [facility] | | [facility] | [facility] | | | | | | [facility] - | | | | | | LABORATORY | | + +-------+ + + + | Hemoglobin | 12.9 | 11.5 - 16.0 | [facility] | | | | | g/dL | [facility] | | | | | | [facility] | | | | | | [facility] - | | | | | | LABORATORY | | + +-------+ + + + | Hematocrit | 39.5 | 34.0 - 47.0 % | [facility] | | | | | | [facility] | | [facility] | [facility] | | | | | | [facility] - | | | | | | LABORATORY | | + +-------+ + + + | MCV | 93.4 | 83.0 - 101.0 fL | [facility] | | | | | | [facility] | [facility] | [facility] | | | | | | [facility] - | | | | | | LABORATORY | | + +-------+ + + + | MCH | 30.5 | 28.0 - 35.0 pg | [facility] | | | | | | [facility] | [facility] | [facility] | | | | | | [facility] - | | | | | | LABORATORY | | + +-------+ + + + | MCHC | 32.7 | 32.0 - 36.0 | [facility] | | | | | g/dL | [facility] | | | | | | [facility] | | | | | | [facility] - | | | | | | LABORATORY | | + +-------+ + + + | RDW-CV | 12.2 | <15.0 % | [facility] | | | | | | [facility] | | [facility] | | | | | | [facility] - | | | | | | LABORATORY | | + +-------+ + + + | RDW-SD | 42.0 | 35.1 - 46.3 fL | [facility] | | | | | | [facility] | | [facility] | [facility] | | | | | | [facility] - | | | | | | LABORATORY | | + +-------+ + + + | Platelet | 156 | 140 - 440 K/uL | [facility] | | | Count | | | [facility] | | [facility] | [facility] | | | | | | [facility] - | | | | | | LABORATORY | | + +-------+ + + + | MPV | 9.3 | 6.5 - 12.4 fL | [facility] | | | | | | [facility] | [facility] | [facility] | | | | | | [facility] - | | | | | | LABORATORY | | + +-------+ + + + | % nRBC | 0 | 0 - 2 per 100 | [facility] | | | | | WBC's | [facility] | | [facility] | [facility] | | | | | | C[facility] - | | | | | | LABORATORY | | + +-------+ + + + | Absolute | 0.00 | 0.00 - 0.01 | [facility] | | | nRBC | | K/uL | [facility] | [facility] | [facility] | | | | | | C[facility] - | | | | | | LABORATORY | | + +-------+ + + + + + | Specimen | + + | Blood | + + + + + + + | Performing | Address | City/State/Zipcode | Phone Number | | Organization | | | | + + + + + | [facility] | [address] | [place], [place] | [phone] | | [facility] | | [address] | | | - LABORATORY | | | | + + + + + FL Pyelogram Retrograde (12/25/2017 1:28 PM PDT) + + | Specimen | [...] | | | + +---------+ + + US Unlisted Procedure (12/25/2017 12:35 PM PDT) [...] was | | | removed and a Microstim 0.035 wire was advanced through the needle [...] | | | + +---------+ + + Type and Screen (12/25/2017 10:24 AM PDT) + + + + + + | Component | Value | Ref Range | Performed | Pathologist | | | | | At | Signature | + + + + + + | ABO | O | | [facility] | | | | | [facility] | [facility] | | | | | | [facility] - | | | | | | BLOOD BANK | | + + + + + + | Rh Type | Positive | | [facility] | | | | | | [facility] | [facility] | | | | | | [facility] - | | | | | | BLOOD BANK | | + + + + + + | Antibody | Negative | | [facility] | | | Screen | | | [facility] | [facility] | [facility] | [facility] | | | | | | CENTER - | | | | | | BLOOD BANK | | + + + + + + + + | Specimen | + + | Blood | + + + + + + + | Performing | Address | City/State/Zipcode | Phone Number | | Organization | | | | + + + + + | [facility] | [address] | [place] | | | [facility] | | [address] | | | - BLOOD BANK | | | | + + + + + POC Glucose (12/25/2017 8:17 AM PDT) + +-------+ + + + | Component | Value | Ref Range | Performed | Pathologist | | | | | At | Signature | + +-------+ + + + | Glucose, | 99 | 70 - 109 mg/dL | [facility] | | | POC | | | [facility] | | [facility] | | [facility] | | | | | | CENTER - | | | | | | LABORATORY | | + +-------+ + + + + + | Specimen | + + | Blood | + + + + + + + | Performing | Address | City/State/Zipcode | Phone Number | | Organization | | | | + + + + + | [facility] | [address] | [place] | [phone] | | [facility] | | [address] | | | - LABORATORY | | | | + + + + + POCT Test, Urine, QUAL (12/25/2017 7:53 AM PDT) + + + + + + | Component | Value | Ref Range | Performed | Pathologist | | | | | At | Signature | + + + + + + | | Negative | Negative | [facility] | | | Test, | | | [facility] | | | Urine, POC | | | CORE | | | | | | LABORATORY | | + + + + + + | Internal QC | Acceptable | Acceptable | [facility] | | | | | | [facility] | | | | | | CORE | | | | | | LABORATORY | | + + + + + + | Specific | | 1.010, 1.015, | [facility] | | | [place], | | 1.020, 1.025 | [facility] | | | POC | | | CORE | | | | | | LABORATORY | | + + + + + + | Lot Number | [id number] | | [facility] | | | | | | [facility] | | | | | | CORE | | | | | | LABORATORY | | + + + + + + | Expiration | 02/16/2019 | | [facility] | | | Date | | | [facility] | | | | | | CORE | | | | | | LABORATORY | | + + + + + + + + | Specimen | + + | Urine | + + + + + + + | Performing | Address | City/State/Zipcode | Phone Number | | Organization | | | | + + + + + | [facility] | [address] [place] [address] [place] | [place] [address] | [phone] | | [facility] | | | | | LABORATORY | | | | + + + + + ECG 12 lead (12/25/2017 7:48 AM PDT) + + + + + + | Component | Value | Ref Range | Performed | Pathologist | | | | | At | Signature | + + + + + + | VENTRICULAR | 59 | BPM | [facility] | | | RATE EKG | | | | | + + + + + + | ATRIAL RATE | 59 | BPM | [facility] | | + + + + + + | P-R | 210 | ms | [facility] | | | INTERVAL | | | | | + + + + + + | QRS | 82 | ms | [facility] | | | DURATION | | | | | + + + + + + | Q-T | 426 | ms | [facility] | | | INTERVAL | | | | | + + + + + + | Q-T | 421 | ms | [facility] | | | INTERVAL | | | | | | (CORRECTED) | | | | | + + + + + + | P WAVE AXIS | 30 | degrees | [facility] | | + + + + + + | T AXIS | 37 | degrees | [facility] | | + + + + + + | INTERPRETAT | Poor data quality, | | [facility] | | | ION TEXT | interpretation may be | | | | | | adversely affectedSinus | | | | | | bradycardia with 1st | | | | | | degree AV blockST | | | | | | segments in leads V4-5 | | | | | | cannot be interpreted: | | | | | | cannot exclude | | | | | | ischemia/infarctionNo | | | | | | previous ECGs | | | | | | availableConfirmed by | | | | | | MARJORIE BASS MD ([id number]) | | | | | | on 12/26/2017 6:43:54 AM | | | | | | | | | | + + + + + + + + | Specimen | + + | | + + + + + | Narrative | Performed At | + + + | | | + + + + +---------+ + + | Performing | Address | City/State/Zipcode | Phone Number | | Organization | | | | + +---------+ + + | [facility] | | | | + +---------+ + + documented in this encounter Visit Diagnoses + + | Diagnosis | + + | Right kidney stone Calculus of kidney | + + | Obstructive sleep apnea on CPAP Obstructive sleep apnea (adult) (pediatric) | + + | Right nephrolithiasis | + + documented in this encounter Administered Medications + +--------+ +--------+------+------+ | Medication Order | MAR | Action | Dose | Rate | Site | | | Action | Date | | | | + +--------+ +--------+------+------+ | acetaminophen (TYLENOL) tablet | Given | 12/26/19 | 975 mg | | | | 975 mg 975 mg, Oral, ONCE, Regine | | 18 8:06 | | | | | 12/25/17 at 0800, For 1 dose, | | AM PDT | | | | | Pre-op | | | | | | + +--------+ +--------+------+------+ +---+---+ | | | +---+---+ + +-------+ +--------+---+---+ | albuterol 2.5 mg/3 mL nebulizer | Given | 12/27/19 | 2.5 mg | | | | solution 2.5 mg 2.5 mg, | | 18 9:24 | | | | | Nebulization, RT EVERY 4 HOURS | | AM PDT | | | | | PRN, Shortness of Breath, | | | | | | | Starting 12/26/17 at 0917, RT | | | | | | | will administer., | | | | | | + +-------+ +--------+---+---+ +---+---+ | | | +---+---+ + +---------+ +---+ +---+ | dextrose 5% and sodium chloride | New Bag | 12/26/19 | | 50 mL/hr | | | 0.45% (D5 1/2 NS) infusion at | | 18 5:19 | | | | | 50 mL/hr, Intravenous, | | PM PDT | | | | | CONTINUOUS, Starting [facility] 12/25/17 | | | | | | | at 1730, Post-op/Phase II | | | | | | + +---------+ +---+ +---+ +---+---+ | | | +---+---+ + +-------+ +--------+---+---+ | gabapentin (NEURONTIN) capsule | Given | 12/26/19 | 300 mg | | | | 300 mg 300 mg, Oral, ONCE, Regine | | 18 8:07 | | | | | 12/25/17 at 0800, For 1 dose, | | AM PDT | | | | | Pre-op | | | | | | + +-------+ +--------+---+---+ +---+---+ | | | +---+---+ + +-------+ +--------+---+---+ | HYDROmorphone (DILAUDID) | Given | 12/27/19 | 0.4 mg | | | | injection 0.2-0.4 mg 0.2-0.4 mg, | | 18 6:15 | | | | | Intravenous, EVERY 1 HOUR PRN, | | AM PDT | | | | | Pain, Starting Regine 12/25/17 at | | | | | | | 1539, If oral route not an | | | | | | | option. Slow IV push, not faster | | | | | | | than 0.3mg/minute. First dose | | | | | | | must be lowest dose, titrate to | | | | | | | effective dose by repeat of | | | | | | | lowest dose every 30 minutes prn | | | | | | | pain, may not exceed maximum dose | | | | | | | ordered per interval. Use | | | | | | | Pasero Sedation Scale., | | | | | | + +-------+ +--------+---+---+ +-------+ +--------+---+---+ | Given | 12/27/19 | 0.4 mg | | | | | 18 12:45 | | | | | | AM PDT | | | | +-------+ +--------+---+---+ +---+---+ | | | +---+---+ + +-------+ +-------+---+---+ | ketorolac (TORADOL) injection | Given | 12/27/19 | 15 mg | | | | 15 mg 15 mg, Intravenous, EVERY | | 18 2:49 | | | | | 6 HOURS PRN, Pain, Starting Regine | | AM PDT | | | | | 12/25/17 at 1702, For 5 days, | | | | | | | Post-op/Phase II | | | | | | + +-------+ +-------+---+---+ +-------+ +-------+---+---+ | Given | 12/26/19 | 15 mg | | | | | 18 8:37 | | | | | | PM PDT | | | | +-------+ +-------+---+---+ +---+---+ | | | +---+---+ + +---------+ +---+-------+---+ | lactated ringers (LR) infusion | New Bag | 12/26/19 | | 100 | | | at 10-100 mL/hr, Intravenous, | | 18 2:00 | | mL/hr | | | CONTINUOUS, Starting Regine 12/25/17 | | PM PDT | | | | | at 0800, TKO., Pre-op | | | | | | + +---------+ +---+-------+---+ +---------+ +--------+-------+---+ | New Bag | 12/26/19 | 1,000 | 100 | | | | 18 8:17 | mLs | mL/hr | | | | AM PDT | | | | +---------+ +--------+-------+---+ +---+---+ | | | +---+---+ + +-------+ +------+---+---+ | ondansetron (ZOFRAN) injection | Given | 12/26/19 | 4 mg | | | | 4 mg 4 mg, Intravenous, ONCE | | 18 2:35 | | | | | PRN, Nausea, Starting Regine | | PM PDT | | | | | 12/25/17 at 1324, For 1 dose, | | | | | | | Recovery/Phase I | | | | | | + +-------+ +------+---+---+ +---+---+ | | | +---+---+ + +-------+ +------+---+---+ | ondansetron (ZOFRAN) injection | Given | 12/27/19 | 4 mg | | | | 4 mg 4 mg, Intravenous, EVERY 6 | | 18 12:45 | | | | | HOURS PRN, Nausea, Vomiting, | | AM PDT | | | | | Starting Regine 12/25/17 at 1702, | | | | | | | First line agent Use PO option | | | | | | | unless NPO status or unable to | | | | | | | tolerate., Post-op/Phase II | | | | | | + +-------+ +------+---+---+ + +---+ | | | + +---+ | oxybutynin (DITROPAN) tablet 5 | | | mg 5 mg, Oral, EVERY 8 HOURS | | | PRN, Bladder Spasms, Starting Regine | | | 12/25/17 at 1539, Hold all | | | antispasmodics after 0200 hours., | | | | | + +---+ | | | + +---+ + +-------+ +------+---+---+ | oxyCODONE (ROXICODONE) tablet | Given | 12/27/19 | 5 mg | | | | 2.5-10 mg 2.5-10 mg, Oral, EVERY | | 18 11:55 | | | | | 3 HOURS PRN, Pain, Starting Rgeine | | AM PDT | | | | | 12/25/17 at 1539, First dose must | | | | [...] | | | | | Sedation Scale., | | | | | | + +-------+ +------+---+---+ +-------+ +------+---+---+ | Given | 12/27/19 | 5 mg | | | | | 18 9:58 | | | | | | AM PDT | | | | +-------+ +------+---+---+ + +---+ | | | + +---+ | phenazopyridine (PYRIDIUM) | | | tablet 200 mg 200 mg, Oral, 3 | | | TIMES DAILY PRN, Urinary | | | Symptoms, urinary burning., | | | Starting [facility] 12/25/17 at 1539, | | | Administer with meals., | | + +---+ | | | + +---+ + +---------+ +---------+---+ + | scopolamine (TRANSDERM-SCOP) 1 | Patch | 12/26/19 | 1 patch | | Ear-Behi | | mg/3 days 1 patch 1 patch, | Applied | 18 8:07 | | | nd Right | | Transdermal, ONCE PRN, PRN for | | AM PDT | | | | | adult patients with history of | | | | | | | PONV. Hold for patients with | | | | | | | glaucoma, dementia, altered | | | | | | | mental status, or history of | | | | | | | allergy to Scopolamine. Apply to | | | | | | | mastoid process behind ear., | | | | | | | Starting Regine 12/25/17 at 0737, | | | | | | | For 1 dose, PRN for adult | | | | | | | patients with history of PONV. | | | | | | | Hold for patients with glaucoma, | | | | | | | dementia, altered mental status, | | | | | | | or history of allergy to | | | | | | | Scopolamine. Apply to mastoid | | | | | | | process behind ear., Pre-op | | | | | | + +---------+ +---------+---+ + +---+---+ | | | +---+---+ + +-------+ +--------+---+---+ | tamsulosin (FLOMAX) capsule 0.4 | Given | 12/27/19 | 0.4 mg | | | | mg 0.4 mg, Oral, DAILY AFTER | | 18 9:58 | | | | | BREAKFAST, First dose on Regine | | AM PDT | | | | | 12/25/17 at 1600, May open | | | | | | | capsule and sprinkle over acidic | | | | | | | soft food (applesauce, yogurt) or | | | | | | | in a small quantity of acidic | | | | | | | fruit juice (orange, grape). Do | | | | | | | not crush, chew or dissolve | | | | | | | granules., | | | | | | + +-------+ +--------+---+---+ +-------+ +--------+---+---+ | Given | 12/26/19 | 0.4 mg | | | | | 18 4:59 | | | | | | PM PDT | | | | +-------+ +--------+---+---+ +---+---+ | | | +---+---+ documented in this encounter
--- OUTSIDE RECORDS SUMMARY | ~2019-08-05 | XMS | Encounter Summary ---
Demographics + + + | Address | [address] | | | [place] [address] | + + + | Home Phone | | + + + | Preferred Language | Unknown | + + + | Marital Status | Single | + + + | Mormon Affiliation | 1013 | + + + | Race | Unknown | + + + | Ethnic Group | Unknown | + + + Author + + + | Author | [facility] | | | and [place] | + + + | Organization | [facility] | | [...] Team Providers + +------+ + | Care Snaker Name | Role | Phone | + [...] + + | 01/27/ | Office | [facility] | Jerrell Hightower | Nephrolithiasis | | 2018 | Visit | [address] | MD [address] | (Primary Dx) | | | | [place] | [place] | | | | | [address] | [address] | | | | | [phone] | | | +--------+---------+ + + + [...] is a 37 y.o. female patient of Crhis De La Torre MD here today for [...] nt Placement; Surgeon: Jerrell Hightower MD; Location: [facility] MAIN OR partial parathyroidectomy 09/2017 TONSILLECTOMY AND ADENOIDECTOMY 2003 URETEROSCOPY Right 01/19/2018 Procedure: RIGHT URETEROSCOPY, LASER LITHOTRIPSY AND STENT; Surgeon: Jerrell Dumas MD; Location: [facility] MAIN OR Family History: Family History [...] Negative Negative Internal QC Acceptable Acceptable Specific [place], POC 1.010, 1.015, 1.020, 1.025 Lot Number [...] have not thoroughly proofread this note, and human factors engineer errors are very likely to occur. CC: Chris De La Torre MD documented in this encounter Plan of Treatment Not on filedocumented as of this encounter Visit Diagnoses + + | Diagnosis | + + | Nephrolithiasis - Primary Calculus of kidney | + + documented in this encounter
--- OUTSIDE RECORDS SUMMARY | ~2019-08-05 | XMS | Encounter Summary ---
Demographics + + + | Address | [address] | | | [place] [address] | + + + | Home Phone | | + + + | Preferred Language | Unknown | + + + | Marital Status | Single | + + + | Presybeterian Affiliation | 1013 | + + + | Race | Unknown | + + + | Ethnic Group | Unknown | + + + Author + + + | Author | [facility] | | | and [place] | + + + | Organization | [facility] | | [...] Team Providers + +------+ + | Care Chip Mucker Name | Role | Phone | + +------+ + | Chris De La Torre MD | PCP | | + +------+ + Reason for Visit + + + | Reason | Comments | + + + | Results | | + + + | Surgery Appointment | | + + + Encounter Details +--------+ + + + + | Date | Type | Department | Care Team | Description | +--------+ + + + + | 01/14/ | Telephone | [facility] | Jerrell Hightower | Results; Surgery | | 2018 | | [address] | MD [address] | Appointment | | | | [place] | [place] | | | | | [address] | [address] | | | | | [phone] | | | +--------+ + + + [...]
--- OUTSIDE RECORDS SUMMARY | ~2019-08-05 | XMS | Encounter Summary ---
Demographics + + + | Address | [address] | | | [place] [address] | + + + | Home Phone | | + + + | Preferred Language | Unknown | + + + | Marital Status | Single | + + + | Cheondoism Affiliation | 1013 | + + + | Race | Unknown | + + + | Ethnic Group | Unknown | + + + Author + + + | Author | [facility] | | | and [place] | + + + | Organization | [facility] | | | [...] Team Providers + +------+ + | Care Non Linear Editor Name | Role | Phone | + +------+ + PCP | Unavailable | + +------+ + Encounter Details +--------+ + + + + | Date | Type | Department | Care Team | Description | +--------+ + + + + | 10/30/ | Abstract | [facility] | Provider, | | | 2018 | | [address] | MD [address] | | | | | [place] | [place] | | | | | [address] | [place] [address] | | | | | [phone] | | | +--------+ + + + [...] | | | + +---+---+---+ + + + | Sex Assigned at [...]
--- OUTSIDE RECORDS SUMMARY | ~2019-08-05 | XMS | Encounter Summary ---
Demographics + + + | Address | [address] | | | [place] [address] | + + + | Home Phone | | + + + | Preferred Language | Unknown | + + + | Marital Status | Single | + + + | Catholic Affiliation | 1013 | + + + | Race | Unknown | + + + | Ethnic Group | Unknown | + + + Author + + + | Author | [facility] | | | and [place] | + + + | Organization | [facility] | | [...] Team Providers + +------+ + | Care Marketing Recruiter Name | Role | Phone | + [...] | | | | | | | [place] | | | | | | | [...] + + | 01/19/ | Hospital | [facility] | Jerrell Hightower | | | 2018 | Encounter | MED CTR XRAY [address] | MD [address] | | | | | [place] | [place] | | | | | [place] [address] | [address] | | | | | [phone] | | | +--------+ + + + [...] + +---------+ + + | | TK /2 TO 1 T PO Q 4 | [...]
--- OUTSIDE RECORDS SUMMARY | ~2019-08-05 | XMS | Encounter Summary ---
Demographics + + + | Address | [address] | | | [place] [address] | + + + | Home Phone | | + + + | Preferred Language | Unknown | + + + | Marital Status | Single | + + + | Taoist Affiliation | 1013 | + + + | Race | Unknown | + + + | Ethnic Group | Unknown | + + + Author + + + | Author | [facility] | | | and [place] | + + + | Organization | [facility] | | [...] Team Providers + +------+ + | Care Irrigator Gravity Flow Name | Role | Phone | + [...] [place] | | | | | [address] | [address] | | | | | [phone] | | | +--------+ + + + [...]
--- OUTSIDE RECORDS SUMMARY | ~2019-08-05 | XMS | Encounter Summary ---
Demographics + + + | Address | [address] | | | [place] [address] | + + + | Home Phone | | + + + | Preferred Language | Unknown | + + + | Marital Status | Single | + + + | Gnosticism Affiliation | 1013 | + + + | Race | Unknown | + + + | Ethnic Group | Unknown | + + + Author + + + | Author | [facility] | | | and [place] | + + + | Organization | [facility] | | | [...] Team Providers + +------+ + | Care Knuckle Bender Name | Role | Phone | + [...] | | | | Jerrell | [address] | | | | | Nephrolithia | MD [place] | [place], | | | | | sis | [address] | [place] [address] | | | | | Procedures | [address] | Phone: | | | | | CT Renal | [facility], [place] | [phone] | | | | | [place] | [address] | Fax: | | | | | Contrast | Phone: | [phone] | | | | | [address] | [phone] | | | | | | SCAN,ABDOMEN | Fax: | | | | | | T AND | [phone] | | | | | | PELVIS,W/O | | | | | | | CONTRAST | | | +--------+--------+ + + + + Reason for Visit + + + | Reason | Comments | + + + | Nephrolithiasis | | + + + Evaluate & Treat (Routine) +--------+--------+ + + + + | Status | Reason | Specialty | Diagnoses / | Referred By | Referred To | | | | | Procedures | Contact | Contact | +--------+--------+ + + + + | Closed | | Urology | Diagnoses | Vincent, | [facility] | | | | | Calculus of | Diane Curtis, | Urology [address] | | | | | kidney | MD [address] | | | | | | [place] | [place], | | | | | | [place], | [place] [address] | | | | | | [place] | Phone: | | | | | | [address] | [phone] | | | | | | Phone: | Fax: | | | | | | [phone] | [phone] | | | | | | Fax: | | | | | | | [phone] | | +--------+--------+ + + + + Encounter Details +--------+---------+ + + + | Date | Type | Department | Care Team | Description | +--------+---------+ + + + | 11/12/ | Office | [facility] | Jerrell Hightower | Nephrolithiasis | | 2018 | Visit | [address] | MD [address] | (Primary Dx); | | | | [place] | [place] | Abnormal urinalysis | | | | [address] | [address] | | | | | [phone] | | | +--------+---------+ + + + [...] + + + | Blood Pressure | 108/74 | 11/12/2017 9:55 AM | | | | | PDT | | + + + + + | Pulse | 80 | 11/12/2017 9:55 AM | | | | | PDT | | + + + + + | Temperature | - | - | | + + + + + | Respiratory Rate | 18 | 11/12/2017 9:55 AM | | | | | PDT | | + + + + + | Oxygen Saturation | - | - | | + + + + + | Inhaled Oxygen | - | - | | | Concentration | | | | + + + + + | Weight | 109.2 kg (240 lb | 11/12/2017 9:55 AM | | | | 11.9 oz) | PDT | | + + + + + | Height | 157.5 cm (5' 2") | 11/12/2017 9:55 AM | | | | | PDT | | + + + + + | Body Mass Index | 44.03 | 11/12/2017 9:55 AM | | | | | PDT | | + + + + + documented in this encounter Progress Notes Jerrell Hightower MD - 11/12/2017 10:00 AM PDTFormatting of this note might be different f rom the original. Chief Complaint Patient presents with Nephrolithiasis HPI Mariela Braden is a 37 y.o. female patient of Chris De La Torre MD here today for an e valuation for nephrolithiasis. Nephrolithiasis Has had multiple episodes of kidney stones in the last year. Most recently passed a 5mm stone on the left. Patient was told that the stone on the right was approx 22 mm in size Patient was also diagnosed with hyperparathyroidism and recently underwent parathyroidectom y. Today patient has bilateral flank pain, unclear if there is a stone on the left. Pain is described as an ache. Has occasional gross hematuria, no urinary incontinence, no fever or chills, no dysuria Patient reports passing a kidney stone on the left last month. Assessment Mariela was seen today for nephrolithiasis. Diagnoses and all orders for this visit: Nephrolithiasis - CT Renal Stone Wo Contrast; Future Abnormal urinalysis - POCT Urinalysis Dipstick Automated - Urinalysis, Microscopic Only, with Culture if Indicated - Culture, Urine; Future Plan Very large right renal stone at >2cm. plan for her cutaneous nephrolithotomy on the right s noemy. We'll order CT scan to evaluate for possible new left kidney stone given flank pain. We discussed the risks of percutaneous nephrolithotomy including loss of kidney, renal zoraida frances, need for blood transfusion, urine leak, extravasation of fluid into the peritoneal cav ity, bowel injury, lung injury, fistula, infection, pain and need for further procedures. We'll tentatively schedulePNL December 09. IR will be required to gain access. Past Medical History Past Medical History: Diagnosis Date Asthma Borderline diabetes Hyperparathyroidism (HCC) Kidney stone Nephrolithiasis Polycystic ovarian syndrome PTSD (post-traumatic stress disorder) PTSD (post-traumatic stress disorder) Past Surgical History Past Surgical History: Procedure Laterality Date KIDNEY STONE SURGERY 2007 x 3 partial parathyroidectomy 09/2017 TONSILLECTOMY AND ADENOIDECTOMY 2003 Family History: Family History Problem Relation Age [...] needed for An xiety., Disp: , Rfl: cholecalciferol (CHOLECALCIFEROL) 1000 units [...] PO), Take by mouth., Disp: , Rfl: montelukast (SINGULAIR) 10 mg tablet, Take 10 mg by mouth Daily., Disp: , Rfl: oxyCODONE-acetaminophen (PERCOCET) 5-325 mg per tablet, TK 1/2 TO 1 T PO Q 4 HOURS, Di sp: , Rfl: 0 Vit-Fe Fumarate-FA ( PO), Take 1 tablet by mouth Daily., Disp: , Rfl: promethazine (PHENERGAN) 25 mg tablet, Take 25 mg by mouth as needed., Disp: , Rfl: 0 ROS Objective BP 108/74 | Pulse 80 | Resp 18 | Ht 1.575 m (5' 2") | Wt 109.2 kg (240 lb 11.9 oz) | L MP 10/23/2017 (Exact Date) | BMI 44.03 kg/m General Appearance: Alert, cooperative, no distress, [...] approximate 14-15 cm on the right side. REVIEW OF SYSTEMS: [] Marked All Negative Constitutional Symptoms: [x] Fever [] Chills [] Headache [x] Change in appetite [x] Change in weight [x] Change in energy [] Other: Neurological: [] Tremors [x] Dizzy Spells [] Numbness/Tingling [] Seizures [] Other: Endocrine: [] Excessive thirst [] Too hot [] Too cold [x] Tired/Sluggish Gastrointestinal: [x] Abdominal pain [x] Nausea/Vomiting [] Indigestion/heartburn [] Change in st ool size [] Change in stool shape [] Change in stool color [] Pain with swallowi ng [] Other: Cardiovascular: [] Chest Pain [x] Rapid heart rate [] High blood pressure [] Other: Integumentary: [] Skin rash [] Boils [] Persistent itch [] Other: Musculoskeletal: [] Neck Pain [] Joint swelling/pain [x] Back pain [] Bone pain [] Other: Respiratory: [x] Wheezing [x] Frequent cough [] Shortness of breath [] Other: Hematologic/Lymphatic: [] Swollen glands [] Blood clotting issues [] Prior blood transfusions []Other: Psychologic: Are you generally satisfied with your life? yes Do you feel severely depressed? no Have you considered suicide? no Habits: Do you smoke? no Results for orders placed or performed in visit on 11/12/17 Urinalysis, Microscopic Only, with Culture if Indicated Result Value Ref Range WBC UA 25-50 (A) 0 - 2 /HPF RBC UA 2-5 (A) 0 - 2 /HPF SQUAMOUS EPITHELIAL UA 5-10 (A) 0 - 2 /LPF BACTERIA UA 1+ (A) Negative /HPF URINE COMMENT Urine Culture Set Up POCT Urinalysis Dipstick Automated Result Value Ref Range Color, UA, POC Yellow Yellow, Light Yellow Clarity, UA, POC Cloudy Glucose, UA, POC Negative Negative Bilirubin, UA, POC Negative Negative Ketones, UA, POC Negative Negative, 100 mg/dL Specific [place], UA, POC 13,010.000 (A) 1.001 - 1.030 Blood, UA, POC Moderate (A) Negative pH, UA, POC 7.0 5.0, 6.0, 7.0, 8.0, 5.5, 6.5, 7.5 Protein, UA, POC Trace (A) Negative Urobilinogen, UA, POC 0.2 0.2, Negative, Normal, < 0.2 mg/dL, 1 mg/dL, < 0.2 E.U./dl, 1.0 E.U./dL, 0.2 mg/dL Nitrite, UA, POC Negative Negative Leukocyte Esterase, UA, POC Moderate (A) Negative RED SUB UA ICTOTEST Negative REMARK No results found for: TANISHA De La Torre MD's notes were reviewed in clinic today. Return in about 2 weeks (around 11/26/2017).. This document was generated in part using voice recognition software. Frequent wrong word or sound-alike substitutions may have occurred due to the inherent limitations of the voice recognition software. Although I have attempted to edit the content, I have not thoroughly proofread this note, and wind commissioning technician errors are very likely to occur. CC: Chris De La Torre MD documented in this encounter Plan of Treatment Not on filedocumented as of this encounter Procedures + +--------+ + + + | Procedure Name | Priori | Date/Time | Associated Diagnosis | Comments | | | ty | | | | + +--------+ + + + | URINALYSIS, | Routin | 11/12/2017 | Abnormal | Results for this | | MICROSCOPIC ONLY, | e | 10:09 AM | urinalysis | procedure are in the | | WITH CULTURE IF | | PDT | | results section. | | INDICATED | | | | | + +--------+ + + + | CULTURE, URINE | Routin | 11/12/2017 | Abnormal | Results for this | | | e | 10:09 AM | urinalysis | procedure are in the | | | | PDT | | results section. | + +--------+ + + + | POCT URINALYSIS, | Routin | 11/12/2017 | Abnormal | Results for this | | AUTO WITH CONF | e | 10:08 AM | urinalysis | procedure are in [...] | | | + +---------+ + + Culture, Urine (11/12/2017 10:09 AM PDT) + + + + + [...] | + + + + + | [address] | [address] | [place] | [phone] | | [facility] | | [address] | | | - LABORATORY | | | | + + + + + Urinalysis, Microscopic Only, with Culture if Indicated (11/12/2017 10:09 AM PDT) + + + + + [...] + + + | Red Blood | 2-5 (A) | 0 - 2 /HPF | [facility] | | | Cells, | | | [facility] | | | Urine | | | [facility] | | | | | | [facility] - | | | | | | LABORATORY | | + + + + + + | Squamous | 5-10 (A) | 0 - 2 /LPF | [...] | | | Comment | | | [facility] | | [...] [address] | [place] | [phone] | | [facility] | | [address] | | | - LABORATORY | | | | + + + + + POCT Urinalysis Dipstick Automated (11/12/2017 10:08 AM PDT) + + + + + + | Component | Value | Ref Range | Performed | Pathologist | | | | | At | Signature | + + + + + + | Color, UA, | Yellow | Yellow, Light | | | | [...] + + + + | Specific | 13,010.000 (A) | 1.001 - 1.030 | | | | [place], | | | | | | UA, POC | | | | | + + + + + + | Blood, UA, | Moderate (A) | Negative | | | | POC | | | | | + + + + + + | pH, UA, POC | 7.0 | 5.0, 6.0, 7.0, | | | | | | 8.0, 5.5, 6.5, | | | | | | 7.5 | | | + + + + + + | Protein, | Trace (A) | Negative | | | | [...] Leukocyte | Moderate (A) | Negative | | | | [...] Calculus of kidney | + + | Abnormal urinalysis Other nonspecific finding on examination of urine | + + documented in this encounter
--- OUTSIDE RECORDS SUMMARY | ~2019-08-05 | XMS | Encounter Summary ---
Demographics + + + | Address | [address] | | | [place] [address] | + + + | Home Phone | | + + + | Preferred Language | Unknown | + + + | Marital Status | Single | + + + | Buddhism Affiliation | 1013 | + + + | Race | Unknown | + + + | Ethnic Group | Unknown | + + + Author + + + | Author | [facility] | | | and [place] | + + + | Organization | [facility] | | | [...] Team Providers + +------+ + | Care Lamp Shades Supervisor Name | Role | Phone | + [...] | | | | | | | [place] | | | | | | | [...] + + | 01/19/ | Hospital | [facility] | Jerrell Hightower | | | 2018 | Encounter | MED CTR XRAY [address] | MD [address] | | | | | [place] | [place] | | | | | [place] [address] | [address] | | | | | [phone] | | | +--------+ + + + [...]
--- OUTSIDE RECORDS SUMMARY | ~2019-08-05 | XMS | Encounter Summary ---
Demographics + + + | Address | [address] | | | [place] [address] | + + + | Home Phone | | + + + | Preferred Language | Unknown | + + + | Marital Status | Single | + + + | Yarsanism Affiliation | 1013 | + + + | Race | Unknown | + + + | Ethnic Group | Unknown | + + + Author + + + | Author | [facility] | | | and [place] | + + + | Organization | [facility] | | | [...] Team Providers + +------+ + | Care Social Work Manager Name | Role | Phone | + +------+ + | Chris De La Torre MD | PCP | | + +------+ + Reason for Visit + + + | Reason | Comments | + + + | Nephrolithiasis | to review labs and 24 hr. urine results | + + + Encounter Details +--------+---------+ + + + | Date | Type | Department | Care Team | Description | +--------+---------+ + + + | 03/17/ | Office | [facility] | Jerrell Hightower | Nephrolithiasis | | 2019 | Visit | [address] | [address] | (Primary Dx); | | | | [place] | [place] | History of | | | | [address] | [address] | hyperparathyroidism; | | | | [phone] | | Dehydration | +--------+---------+ + + + Social History [...] + + + | Blood Pressure | 108/72 | 03/17/2018 10:06 AM | | | | | PST | | + + + + + | Pulse | 76 | 03/17/2018 10:06 AM | | | | | PST | | + + + + + | Temperature | - | - | | + + + + + | Respiratory Rate | 18 | 03/17/2018 10:06 AM | | | | | PST | | + + + + + | Oxygen Saturation | - | - | | + + + + + | Inhaled Oxygen | - | - | | | Concentration | | | | + + + + + | Weight | 110 kg (242 lb 8.1 | 03/17/2018 10:06 AM | | | | oz) | PST | | + + + + + | Height | 157.5 cm (5' 2") | 03/17/2018 10:06 AM | | | | | PST | | + + + + + | Body Mass Index | 44.35 | 03/17/2018 10:06 AM | | | | | PST | | + + + + + documented in this encounter Progress Notes Jerrell Hightower MD - 03/17/2018 10:15 AM PSTFormatting of this note might be differ ent from the original. Chief Complaint Patient presents with Nephrolithiasis to review labs and 24 hr. urine results HPI Mariela Braden is a 37 y.o. female patient of Chris De La Torre MD here today for a follow up for nephrolithiasis to review labs and 24 hr. Urine results. Patient denies any flank pain, no nausea, no vomiting, no fever or chills. She also denies any gross hematuria, dysuria or urinary incontinence. Assessment Mariela was seen today for nephrolithiasis. Diagnoses and all orders for this visit: Nephrolithiasis History of hyperparathyroidism Dehydration Plan Extensive conversation with the patient regarding 24-hour urine results. The biggest facto r we identified was low urine volume. Patient voided only 800 mL. Studies show that making greater than 2 and half liters of urine per day can be protective against future stone form ation. I encouraged the patient to essentially triple the amount of urine that she is making eac h day. She was also noted to have low normal levels of citrate. I encouraged her to add l emon juice to her water. In addition to this we can start potassium citrate. Patient was a lso noted to have low normal magnesium levels. Many americans already are deficient in mag nesium and magnesium in the urine can help prevent kidney stones. Operative start the patient on potassium citrate however patient states that she was previo usly on this and experienced significant GI discomfort. I also encouraged the patient to matias pplement with magnesium. I generally recommend either magnesium malate or magnesium citrate . Magnesium citrate can have GI symptoms. Patient has had a history of hyperparathyroidism status post resection. PTH levels were no jen to be normal. Her uric acid levels were also noted to be normal. Repeat 24 hour urine in 3 months Past Medical History Past Medical History: Diagnosis [...] nt Placement; Surgeon: Jerrell Hightower MD; Location: [facility] MAIN OR partial parathyroidectomy 09/2017 TONSILLECTOMY AND ADENOIDECTOMY 2003 URETEROSCOPY Right 01/19/2018 Procedure: RIGHT URETEROSCOPY, LASER LITHOTRIPSY AND STENT; Surgeon: Jerrell Dumas MD; Location: [facility] MAIN OR Family History: Family History Problem [...] of breath, no chest pain Objective BP 108/72 | Pulse 76 | Resp 18 | Ht 1.575 m (5' 2") | Wt 110 kg (242 lb 8.1 oz) | BMI 44.35 kg/m General Appearance: Alert, cooperative, no distress, [...] Negative Negative Internal QC Acceptable Acceptable Specific [place], POC 1.010, 1.015, 1.020, 1.025 Lot Number [...] reviewed in clinic today. Return in about 3 months (around 06/15/2018).. This document was generated in part using voice recognition software. Frequent wrong word or sound-alike substitutions may have occurred due to the inherent limitations of the voice recognition software. Although I have attempted to edit the content, I have not thoroughly proofread this note, and veterinary microbiologist errors are very likely to occur. CC: Chris De La Torre MD documented in this encounter Plan of Treatment Not on filedocumented as of this encounter Procedures + +--------+ + + + | Procedure Name | Priori | Date/Time | Associated Diagnosis | Comments | | | ty | | | | + +--------+ + + + | LABS - EXTERNAL SCAN | | 03/16/2018 | | Results for this | | | | 12:00 AM | | procedure are in the | | | | PST | | results section. | + +--------+ + + + | LABS - EXTERNAL SCAN | | 03/06/2018 | | Results for this | | | | 12:00 AM | | procedure are in the | | | | PST | | results section. | + +--------+ + + + | LABS - EXTERNAL SCAN | | 02/09/2018 | | Results for this | | | | 12:00 AM | | procedure are in the | | | | PST | | results section. | + +--------+ + + + documented in this encounter Results LABS - EXTERNAL SCAN (03/16/2018 12:00 AM PST) + + + | Narrative | Performed At | + + + | Ordered by an | | | unspecified provider. | | + + + LABS - EXTERNAL SCAN (03/06/2018 12:00 AM PST) + + + | Narrative | Performed At | + + + | Ordered by an | | | unspecified provider. | | + + + LABS - EXTERNAL SCAN (02/09/2018 12:00 AM PST) + + + | Narrative | Performed At | + + + | Ordered by an | | | unspecified provider. | | + + + documented in this encounter Visit Diagnoses + + | Diagnosis | + + | Nephrolithiasis - Primary Calculus of kidney | + + | History of hyperparathyroidism Personal history of other endocrine, metabolic, and | | immunity disorders | + + | Dehydration | + + documented in this encounter
--- OUTSIDE RECORDS SUMMARY | ~2019-08-05 | XMS | Clinical Summary ---
Demographics + + + | Address | [address] | | | [place] [address] | + + + | Home Phone | | + + + | Preferred Language | Unknown | + + + | Marital Status | Single | + + + | Rastafarian Affiliation | 1013 | + + + [...] Team Providers + +------+ + | Care Dampproofer Name | Role | Phone | + [...] | Added automatically from request for surgery [id number] | + + + + + | Right nephrolithiasis | 01/20/2017 | + + + Immunizations + + + + | Name | Administration Dates | Next Due | + + + + | INFLUENZA QUADR | 12/16/2016 | | | W/PRES | | | | (PED/ADOL/ADULT) | | | | MULTIDOSE | | | + + + + | INFLUENZA, [id number], | 05/12/2009 | | | UNSPECIFIED | [...] | HECTOR YOUNG | | 07/31/ | [id number] | | 2232 - [id number]: | | | INCORPORATE | | 2020 | / | | Qty: 1 on 12/25/2017 by | | Ureter | D | | | /[id number] | | Jerrell Hightower MD at | | | | | | 30 | | [facility] | | | | | | | | [facility] | | | | | | | + +-------+--------+ +--------+--------+--------+ | Stent Uret W/Pstnr Frm 6 | Stent | Right: | HECTOR YOUNG | | 11/07/ | [id number] | | - [id number]: | | | INCORPORATE | | 2020 | / | | Qty: 1 on 01/19/2018 by | | Ureter | D | | | /[id number] | | Jerrell Hightower MD at | | | | | | 51 | | [facility] | | | | | | | | [facility] | | | | | | | [...] + +------+ | MODA | MODA | [id number] | 03/10/19 | [phone] | [address] | PPO | | | AFFINI | | 18-Pre | 9 | [id number] | | | | [place] | | sent | | [place], | | | | [place] | | | | [place] [address] | | | | STONE | | [...] lalita | | | 3 (Home) | [address] | + +--------+ +--------+ + + Advance Directives + + + + + | Type | Date Recorded | Patient | Explanation | | | | Head Mixer | | + + + + + | Power of | | | | | Plywood Layup Line Core Layer | | | | + + + [...]
--- OUTSIDE RECORDS SUMMARY | ~2019-08-05 | XMS | Encounter Summary ---
Demographics + + + | Address | [address] | | | [place] [address] | + + + | Home Phone | | + + + | Preferred Language | Unknown | + + + | Marital Status | Single | + + + | Hindu Affiliation | 1013 | + + + | Race | Unknown | + + + | Ethnic Group | Unknown | + + + Author + + + | Author | [facility] | | | and [place] | + + + | Organization | [facility] | | [...] Team Providers + +------+ + | Care Cook Night Name | Role | Phone | + [...] [place] | | | | | | [address] | | | | | | [phone] | | | +--------+ + + + [...]
--- OUTSIDE RECORDS SUMMARY | ~2019-08-05 | XMS | Encounter Summary ---
Demographics + + + | Address | [address] | | | [place] [address] | + + + | Home Phone | | + + + | Preferred Language | Unknown | + + + | Marital Status | Single | + + + | Christianity Affiliation | UNK | + + + | Race | White | + + + | Ethnic Group | Not or | + + + Author + + + | Author | [facility] | + + + | Organization | [facility] | + + + | Address | Unknown | + + + | Phone | Unavailable | + + + Support + + +---------+ + | Name | Relationship | Address | Phone | + + +---------+ + | Maribel Patel | ECON | Unknown | | + + +---------+ + Care Team Providers + +------+ + | Care Tuber Machine Cutter Name | Role | Phone | + +------+ + | Chris De La Torre MD | PCP | | + +------+ + Reason for Visit Intake Referral (Routine) +--------+--------+ + + + + | Status | Reason | Specialty | Diagnoses / | Referred By | Referred To | | | | | Procedures | Contact | Contact | +--------+--------+ + + + + | Closed | | Nephrology | Diagnoses | Reddy, | Nht Nephro | | | | | Calculus of | [place], [place] | [facility] [address] | | | | | kidney | [address] | | | | | Calculus of | Integrative | Physician's | | | | | kidney with | [address] | [address], | | | | | calculus of | [address] | 3rd floor | | | | | ureter | [address] | [place], [place] | | | | | | [place], [address] | | | | | | [place] [address] | Phone: | | | | | | Phone: | [phone] | | | | | | [phone] | Fax: | | | | | | Fax: | [phone] | | | | | | [phone] | | +--------+--------+ + + + + Encounter Details +--------+---------+ + + + | Date | Type | Department | Care Team | Description | +--------+---------+ + + + | 11/18/ | Office | Nephrology & | Nino Thomason, | Kidney stone | | 2018 | Visit | Hypertension at [facility] | [address] | (Primary Dx) | | | | [address] | [facility] [address] | | | | | Loop Physician's | [place], [place] | | | | | [place], 3rd floor | [address] | | | | | [place], [place] | [phone] | | | | | [address] | | | | | | [phone] | | | +--------+---------+ + + + [...] in this encounter Patient Instructions Patient Instructions Nino Thomason MD - 11/18/2017 2:00 PM PDTRepeat litholink I will call with results No new medications Follow up if needed documented in this encounter Progress Notes Nino Thomason MD - 11/18/2017 2:00 PM PDTFormatting of this note might be different fr om the original. Nephrology new consult Referring physician: Tanisha Reddy Reason for consult: recurrent stones HPI: Mariela Braden is a 37 y.o. female who presents for evaluation of nephrolithias is which appears to be just in the last 1 year in which she has had B renal stones and repea jen lithotripsy. She also was noted to have hyperparathyroidism and had parathyroidectomy in September. She did a litholink prior but it was prior to her parathyroidectomy. She is on hctz f or edema from an unclear cause. She has poorly controlled asthma in that she has exacerbatio ns nearly daily at times. ROS: 12/21 systems reviewed and neg except per HPI, ROS include Constitutional, Eyes, ENT, Cardiovascular, Respiratory, GI, , musculoskeletal, neuro, psychological Patient Active Problem List Diagnosis Kidney stone Primary hyperparathyroidism (HCC) Asthma Medications: Current Medication List Name Sig ALBUTEROL SULFATE HFA 90 MCG/ACTUATION AEROSOL INHALER Inhale by mouth. BUDESONIDE-FORMOTEROL HFA 160 MCG-4.5 MCG/ACTUATION AEROSOL INHALER Inhale by mouth. CHOLECALCIFEROL (VITAMIN D3) 1,000 UNIT TABLET Take by mouth. EPINEPHRINE 0.3 MG/0.3 ML INJECTION, AUTO-INJECTOR Inject into the muscle (IM). FEXOFENADINE 180 MG TABLET Take by mouth. HYDROCODONE 7.5 MG-ACETAMINOPHEN 325 MG TABLET Take by mouth. 12-IRON 29 MG-FA 1 MG-DSS 50 MG-OM3 TABLET-CAPSULE,DELAY REL Take by mouth. Allergies Allergen Reactions Ceftriaxone Hives Erythromycin Stomach Upset History Social History Marital Status: Single Social History Main Topics Tobacco Use: Never Alcohol Use: Yes Drug Use: No Family History Problem Relation Diabetes Father PE: Filed Vitals: 11/18/2017 2:08 PM Height: 1.575 m (5' 2") Weight: 109 kg (240 lb 4.8 oz) BP: 123/81 Pulse: 64 Temp: 36.2 C (97.1 F) TempSrc: Forehead SpO2: 98% PainSc: 02 - Mild PainLoc: Flank (Bilateral) BMI: 43.95 kg/(m^2) Gen: well appearing WF NAD Heent: anicteric, MMM, PERRL Chest- BCTA CV- RRR, nl s1s2 AB- soft, NT, no organomegaly Ext- no edema Neuro- no asterixis Skin- no excoriations, no rashes MSK- no joint deformities on upper extremities Labs reviewed and include: 09/24 Ca 10.8 Cr 0.99 K 4.2 UA trace protein A/P Pt is a 37 y/o with recurrent nephrolithiasis -- Nephrolithiasis- pt now s/p parathyroidectomy. Will redo 24 hour urine testing as pt may be low risk now that she is s/p surgery and on hctz. If she is low risk, will not have plan s for follow up. The fact that all her stones were in the last year suggests this is all rel ated to her PTH and the parathyroidectomy was definitive treatment. Will consider k-citrate/ increase in hctz pending results. Pt to follow up as needed based on litholink documented in this e ncounter Plan of Treatment Not on filedocumented as of this encounter Visit Diagnoses + + | Diagnosis | + + | Kidney stone - Primary Calculus of kidney | + + documented in this encounter
--- OUTSIDE RECORDS SUMMARY | ~2019-08-05 | XMS | Encounter Summary ---
Demographics + + + | Address | [address] | | | [place] [address] | + + + | Home Phone | | + + + | Preferred Language | Unknown | + + + | Marital Status | Single | + + + | Episcopalian Affiliation | 1013 | + + + | Race | Unknown | + + + | Ethnic Group | Unknown | + + + Author + + + | Author | [facility] | | | and [place] | + + + | Organization | [facility] | | [...] Team Providers + +------+ + | Care Insurance Agency Manager Name | Role | Phone | + +------+ + | Chris De La Torre MD | PCP | | + +------+ + Encounter Details +--------+ + + + + | Date | Type | Department | Care Team | Description | +--------+ + + + + | 06/13/ | Imaging | [facility] | Provider, | | | 2020 | Exam | [facility] EXTER[facility] | MD [address] | | | | | IMAGING [address] | [address] | | | | | [address] [place] | [place] [address] | | | | | [place] [address] | | | | | | [phone] | | | +--------+ + + + [...] + +--------+ + + + | US ABDOMEN COMPLETE | Routin | 07/14/2017 | | Results for this | | | e | 12:00 AM | | procedure are in the | | | | PDT | | results section. | + +--------+ + + + documented in this encounter Results US Abdomen Complete (07/14/2017 12:00 AM PDT) + + | Specimen | + + | | + + + + + | Narrative | Performed At | + + + | External films for comparison only | [facility] | | | | | No results will be in the chart. | | + + + + +---------+ + + | Performing | Address | City/State/Zipcode | Phone Number | | Organization | | | | + +---------+ + + | [facility] | | | | + +---------+ + + documented in this encounter Visit Diagnoses Not on filedocumented in this encounter"
--- OUTSIDE RECORDS SUMMARY | ~2019-08-05 | XMS | Encounter Summary ---
Demographics + + + | Address | [address] | | | [place] [address] | + + + | Home Phone | | + + + | Preferred Language | Unknown | + + + | Marital Status | Single | + + + | Druze Affiliation | 1013 | + + + [...] Team Providers + +------+ + | Care Home School Teacher Name | Role | Phone | + +------+ + | Chris De La Torre MD | PCP | | + +------+ + Reason for Visit + + + | Reason | Comments | + + + | Urology Appointment | | + + + Encounter Details +--------+ + + + + | Date | Type | Department | Care Team | Description | +--------+ + + + + | 11/17/ | Telephone | [facility] | Jerrell Hightower | Urology Appointment | | 2017 | | [address] | MD [address] | | | | | [place] | [place] | | | | | [address] | [address] | | | | | [phone] | | | +--------+ + + + [...]
--- OUTSIDE RECORDS SUMMARY | ~2019-08-05 | XMS | Encounter Summary ---
Demographics + + + | Address | [address] | | | [place] [address] | + + + | Home Phone | | + + + | Preferred Language | Unknown | + + + | Marital Status | Single | + + + | Quaker Affiliation | 1013 | + + + | Race | Unknown | + + + | Ethnic Group | Unknown | + + + Author + + + | Author | [facility] | | | and [place] | + + + | Organization | [facility] | | | [...] Team Providers + +------+ + | Care Yard Stocker Name | Role | Phone | + [...] | | | | | | | [place] | | | | | | [...] Description | +--------+---------+ + + + | 12/25/ | Surgery | [facility] | Emmasee Jerrell | Right Percutaneous | | 2018 | | MED CTR OR INTRA OP | MD [address] | nephrolithotomy and | | | | [address] | [address] [place] | cYSTOSCOPY | | | | [place], [place] | [address] | URETEROSCOPY W/ | | | | [address] | | LASER and Stent | | | | [phone] | | Placement | +--------+---------+ + + + Social History [...] | | | Radiol | | | ogist) | +---+--------+ + +--------+ +---+ + | [...] | | | | mmol/L | [facility] | [facility] | [facility] | | | | | | C[facility] - | | | | | | LABORATORY | | + + + + + + | K | 4.0 | 3.5 - 5.1 | [facility] | | | | | mmol/L | [facility] | | | | [...] | 1.04 | 0.60 - 1.30 | [facility] | | | | | mg/dL | [facility] | | | | | | [facility] | | | | | | CENTER - | | | | | | LABORATORY | | + + + + + + | eGFR if not | 59 (L)Comment: | >=60 | [facility] | | | | GLOMERULAR FILTRATION | mL/min/1.73m2 | [facility] | | | [place] | RATE,ESTIMATED | | MEDICAL | | | | mL/min/1.82a4Cini than | | CENTER - | | [...] ST. | [address] | [place] | [phone] | | [facility] | | [address] | | | - LABORATORY | | [...] ST. | [address] | [place], [place] | [phone] | | [facility] | | [address] | | | - LABORATORY | | [...] [facility] | | | | | | at:[phone]. | | | | + + + [...] + + | Performed at: 01 - [facility] [address], | REFERENCE LAB | | [place], [place] [id number] Medical Assistant: Gene Orozco MD, Phone: | [facility] [place] | | [phone] | | + + + + + + + + | Performing | Address | City/State/Zipcode | Phone Number | | Organization | | | | + + + + + | REFERENCE LAB | [address] | [place], [place] | [phone] | | [facility] | [address] | [address] | | + + + + + [...] | nRBC | | K/uL | [facility] | [...] + | [facility] | [address] | [place], [place] | [phone] | | [facility] | | [address] | | | - LABORATORY | | [...] was | | | removed and a Viroblock 0.035 wire was advanced through the needle [...] | | Screen | | | [facility] | | [...] | + + + + + | [facility] | [address] | [place], [place] | | | [facility] | | [address] | | | - BLOOD BANK | | | | + + + + + POC Glucose (12/25/2017 8:17 AM PDT) + +-------+ + + + | Component | Value | Ref Range | Performed | Pathologist | | | | | At | Signature | + +-------+ + + + | Glucose, | 99 | 70 - 109 mg/dL | [facility] | | | POC | | | [...] | + + + + + | [facility] | [address] | [place] | [phone] | | [facility] | | [address] | | | - LABORATORY | | [...] | | Test, | | | [facility] | | | Urine, POC | | [...] 1.010, 1.015, | [facility] | | | [place], | | 1.020, 1.025 | [facility] | | | POC | | | CORE | | | | | | LABORATORY | | + + + + + + | Lot Number | [id number] | | [facility] | | | | | | [facility] | | | | | | CORE | | | | | | LABORATORY | | + + + + + + | Expiration | 02/16/2019 | | [facility] | | | Date | | | [facility] | | [...] + + + + + | [facility] | [address] [place] [address] [place] | [place] [address] | [phone] | | [facility] | | | | | LABORATORY | [...] | | | | MARJORIE BASS MD ([id number]) | | | | | | on [...] | | | | | CONTINUOUS, Starting Regine 12/25/17 | | | | | | [...] | | 3 HOURS PRN, Pain, Starting Regine | | [...] Symptoms, urinary burning., | | | Starting [facility] 12/25/17 at 1539, | | | Administer [...]
--- OUTSIDE RECORDS SUMMARY | ~2019-08-05 | XMS | Encounter Summary ---
Demographics + + + | Address | [address] | | | [place] [address] | + + + | Home Phone | | + + + | Preferred Language | Unknown | + + + | Marital Status | Single | + + + | Congregational Affiliation | 1013 | + + + [...] Team Providers + +------+ + | Care Pricer Bagger Name | Role | Phone | + [...] | | | | | | | [place] PERCUT | | | | | | [...] + + | 12/25/ | Hospital | [facility] | Jerrell Hightower | | | 2018 | Encounter | MED CTR XRAY [address] | MD [address] | | | | | [place] | [place] [place], [place] | | | | | [place] [address] | [address] | | | | | [phone] | | | +--------+ + + + [...] in this encounter Results [place] Pyelogram Retrograde (12/25/2017 1:28 PM PDT) [...]
--- OUTSIDE RECORDS SUMMARY | ~2019-08-05 | XMS | Encounter Summary ---
Demographics + + + | Address | [address] | | | [place] [address] | + + + | Home Phone | | + + + | Preferred Language | Unknown | + + + | Marital Status | Single | + + + | Tenriism Affiliation | 1013 | + + + | Race | Unknown | + + + | Ethnic Group | Unknown | + + + Author + + + | Author | [facility] | | | and [place] | + + + | Organization | [facility] | [...] Team Providers + +------+ + | Care Fuel Cell Designer Name | Role | Phone | + [...] | | | | Jerrell | [address] | | | | | Nephrolithia | MD Catrachita | [place], | | | | | sis | [address] | [place] [address] | | | | | Procedures | AVE [place] | Phone: | | | | | CT Renal | [place], [place] | [phone] | | | | | Stone [place] | [address] | Fax: | | | | | Contrast | Phone: | [phone] | | | | | [address] | [phone] | | | | | | SCAN,ABDOMEN | Fax: | | | | | | T AND | [phone] | | | | | | PELVIS,W/O [...] | | | | Jerrell | [address] | | | | | Nephrolithia | MD Catrachita | [place], | | | | | sis | [address] | [place] [address] | | | | | Procedures | AVE [place] | Phone: | | | | | CT Renal | [place] | [phone] | | | | | [place] | [address] | Fax: | | | | | Contrast | Phone: | [phone] | | | | | [address] | [phone] | | | | | | SCAN,ABDOMEN | Fax: | | | | | | T AND | [phone] | | | | | | PELVIS,W/O | | | | | | | CONTRAST | | | +--------+--------+ + + + + Encounter Details +--------+ + + + + | Date | Type | Department | Care Team | Description | +--------+ + + + + | 01/13/ | Hospital | [facility] | Jerrell Hightower | Nephrolithiasis | | 2018 | Encounter | MED CTR CT [address] | MD [address] | | | | | [place], | [place], [place] | | | | | [place] [address] | [id number] | | | | | [phone] | | | +--------+ + + + [...] mg by mouth | | 0 | 07//20 | | | (PHENERGAN) 25 mg | [...] CT RENAL STONE WO | Routin | 01/13/2018 | Nephrolithiasis | Results for this | | CONTRAST | e | 11:01 AM | | procedure are in the | | | | PST | | results section. | + +--------+ + + + documented in this encounter Results CT Renal Stone Wo Contrast (01/13/2018 11:01 AM [facility]) + + | Specimen | + + [...] | | has been documented for JERRELL HIGHTOWER in the [employer] | | | | Critical Result system on 01/13/2018 12:29 PM, Message ID [id number]. | | | Dictated and Signed by: [...] Only message has been documented for JERRELL AGUILAR Don | | the [employer] | Critical Result system on 01/13/2018 12:29 PM, MessageID | | [id number].Dictated and Signed by: Jesus Paz MD Electronically [...] documented for JERRELL HIGHTOWER | |in the [employer] | Critical Result system on 01/13/2018 12:29 PM, Message | |ID [id number]. | | | |Dictated and Signed by: [...]
--- OUTSIDE RECORDS SUMMARY | ~2019-08-05 | XMS | Clinical Summary ---
Demographics + + + | Address | [address] | | | [place] [address] | + + + | Home Phone | | + + + | Preferred Language | Unknown | + + + | Marital Status | | + + + | Mormon Affiliation | 1013 | + + + | Race | Unknown | + + + | Ethnic Group | Unknown | + + + Author + + + | Author | [facility] (Historical as of | | | 10-24-18) | + + + | Organization | [facility] (Historical as of | | | 10-24-18) | + + + | Address | Unknown | + + + | Phone | Unavailable | + + + Support + + +---------+ + | Name | Relationship | Address | Phone | + + +---------+ + | JorgeMaribel | ECON | Unknown | | + + +---------+ + | Leda Sanchez | ECON | Unknown | | + + +---------+ + | [place] | ECON | Unknown | | + + +---------+ + Care Team Providers + +------+ + | Care Preschool Assistant Principal Name | Role | Phone | + +------+ + | Chris De La Torre MD | PP | | + +------+ + Allergies + + + + + + | Active Allergy | Reactions | Severity | Noted | Comments | | | | | Date | | + + + + + + | Erythromycin | GI Distress | Low | 12/21/19 | | | | | | 15 | | + + + + + + | Ceftriaxone | Hives | High | 09/18/19 | | | | | | 18 | | + + + + + + Current Medications + + +-------+---------+------+------+-------+ | Prescription | Sig. | Disp. | Refills | Star | End | Statu | | | | | | t | Date | s | | | | | | Date | | | + + +-------+---------+------+------+-------+ | fexofenadine | Take 180 mg by mouth | | | | | Activ | | (CONCETTA) 180 MG | daily. | | | | | e | | tablet | | | | | | | + + +-------+---------+------+------+-------+ | | Inhale 2 puffs into | | | | | Activ | | budesonide-formotero | the lungs 2 (two) | | | | | e | | l (SYMBICORT) | times daily. | | | | | | | 160-4.5 MCG/ACT | | | | | | | | inhaler | | | | | | | + + +-------+---------+------+------+-------+ | albuterol | Inhale 2 puffs into | | | | | Activ | | (PROVENTIL | the lungs every 4 | | | | | e | | HFA;VENTOLIN HFA) | (four) hours as | | | | | | | 108 (90 BASE) | needed for Wheezing. | | | | | | | MCG/ACT inhaler | | | | | | | + + +-------+---------+------+------+-------+ | EPINEPHrine 0.3 | Inject 0.3 mg into | | | | | Activ | | MG/0.3ML | the muscle as | | | | | e | | auto-injector | needed. | | | | | | + + +-------+---------+------+------+-------+ | Vit-Fe | Take 1 tablet by | | | | | Activ | | Fumarate-FA | mouth daily with | | | | | e | | ( | breakfast. | | | | | | | MULTIVITAMIN & | | | | | | | | MINERALS W IRON/FA) | | | | | | | | 27-0.8 MG TABS | | | | | | | | tablet | | | | | | | + + +-------+---------+------+------+-------+ | Inositol-D | Take by mouth. | | | | | Activ | | Chiro-Inositol | | | | | | e | | (OVASITOL PO) | | | | | | | + + +-------+---------+------+------+-------+ | cholecalciferol | Take 3,000 Units by | | | | | Activ | | (VITAMIN D-3) 1000 | mouth daily. | | | | | e | | units tablet | | | | | | | + + +-------+---------+------+------+-------+ | | Take 12.5 mg by | | | | | Activ | | hydrochlorothiazide | mouth daily. | | | | | e | | (HYDRODIURIL) 12.5 | | | | | | | | MG tablet | | | | | | | + + +-------+---------+------+------+-------+ Active Problems + + + | Problem | Noted Date | + + + | Primary hyperparathyroidism (HCC) | 2017 | + + + + + | Overview: Added automatically from request for surgery [id number] | + + + + + | Kidney stone | 01/20/2017 | + + + Family History + + +------+ + | Medical History | Relation | Name | Comments | + + +------+ + | Diabetes type II | Father | | | + + +------+ + | Diabetes type II | Paternal | | | | | Grandmoth | | | | | er | | | + + +------+ + | Malig hypertherm | Neg Hx | | | + + +------+ + + +------+--------+ + | Relation | Name | Status | Comments | + +------+--------+ + | Father | | | | + +------+--------+ + | Paternal Grandmother | | | | + +------+--------+ + [...] on file | | + + + Last Filed Vital Signs + + + + | Vital Sign | Reading | Time Taken | + + + + | Blood Pressure | 124/68 | 02/09/2018 11:51 AM PST | + + + + | Pulse | 69 | 09/25/2017 3:05 PM PDT | + + + + | Temperature | 36.4 C (97.5 F) | 09/19/2017 3:40 PM PDT | + + + + | Respiratory Rate | 18 | 02/09/2018 11:51 AM PST | + + + + | Oxygen Saturation | 96% | 09/25/2017 3:05 PM PDT | + + + + | Inhaled Oxygen | - | - | | Concentration | | | + + + + | Weight | 108 kg (238 lb) | 02/09/2018 11:51 AM PST | + + + + | Height | 157.5 cm (5' 2") | 09/19/2017 11:09 AM PDT | + + + + | Body Mass Index | 43.53 | 02/09/2018 11:51 AM PST | + + + + Plan of Treatment + + + + + | Health Maintenance | Due Date | Last Done | Comments | + + + + + | Vaccine: | | | | | Dtap/Tdap/Td (1 - | 9 | | | | Tdap) | | | | + + + + + | Cervical Cancer | | | | | Screening (Pap) | 0 | | | + + + + + | Vaccine: Influenza | | | | | (Season Ended) | 0 | | | + + + + + Results Not on filefrom Last 3 Months Insurance + +--------+ +------+-------+---------+ | Payer | Benefi | Subscriber | Type | Phone | Address | | | t Plan | ID | | | | | | / | | | | | | | Group | | | | | + +--------+ +------+-------+---------+ | [employer] | [employer] | [id number] | | | | | | HEALTH | | | | | | | PLAN | | | | | + +--------+ +------+-------+---------+ + +--------+ +--------+ + + | Guarantor Name | Accoun | Relation to | Date | Phone | Billing Address | | | t Type | Patient | of | | | | | | | | | | + +--------+ +--------+ + + | JEFF ALICEA | Person | Self [birth year] Home: | [address] | | | al/Fam | | 1981 | [phone] | [place] | | | [place] | | | [phone] | [phone] | + +--------+ +--------+ + +
--- OUTSIDE RECORDS SUMMARY | ~2019-08-05 | XMS | Encounter Summary ---
Demographics + + + | Address | [address] | | | [place] [address] | + + + | Home Phone | | + + + | Preferred Language | Unknown | + + + | Marital Status | Single | + + + | Faith Affiliation | 1013 | + + + | Race | Unknown | + + + | Ethnic Group | Unknown | + + + Author + + + | Author | [facility] [...] Team Providers + +------+ + | Care Resident Care Technician Name | Role | Phone | + [...] + + | 02/03/ | Telephone | [facility] | Jerrell Hightower | Lab Order | | 2017 | | [address] | MD Catrachita [address] | | | | | [place] | [place] | | | | | [address] | [address] | | | | | [phone] | | | +--------+ + + + [...]
--- OUTSIDE RECORDS SUMMARY | ~2019-08-05 | XMS | Encounter Summary ---
Demographics + + + | Address | [address] | | | [place] [address] | + + + | Home Phone | | + + + | Preferred Language | Unknown | + + + | Marital Status | Single | + + + | Mu-Ism Affiliation | 1013 | + + + [...] Team Providers + +------+ + | Care Reformatory Attendant Name | Role | Phone | + +------+ + PCP | Unavailable | + +------+ + Encounter Details +--------+ + + + + | Date | Type | Department | Care Team | Description | +--------+ + + + + | 10/30/ | Abstract | [facility] | Provider, | | | 2018 | | [address] | MD [address] | | | | | [place] | Yuli [place]chas[place]. | | | | | [address] | [place] [address] | | | | | [phone] | | | +--------+ + + + [...]
--- OUTSIDE RECORDS SUMMARY | ~2019-08-05 | XMS | Encounter Summary ---
Demographics + + + | Address | [address] | | | [place] [address] | + + + | Home Phone | | + + + | Preferred Language | Unknown | + + + | Marital Status | Single | + + + | Restorationism Affiliation | 1013 | + + + [...] Team Providers + +------+ + | Care Water Jet Loom Fixer Name | Role | Phone | + [...] | | | [address] [place] | [place] [address] | | | | | [place] [address] | | | | | | [phone] | | | +--------+ + + + [...] + +--------+ + + + | CT ABDOMEN PELVIS WO | Routin | 08/05/2017 | | Results for this | | CONTRAST | e | 12:00 AM | | procedure are in the | | | | PDT | | results section. | + +--------+ + + + documented in this encounter Results CT Abdomen Pelvis wo Contrast (08/05/2017 12:00 AM PDT) + + | Specimen [...]
--- OUTSIDE RECORDS SUMMARY | ~2019-08-05 | XMS | Encounter Summary ---
Demographics + + + | Address | [address] | | | [place] [address] | + + + | Home Phone | | + + + | Preferred Language | Unknown | + + + | Marital Status | Single | + + + | Synagogue Affiliation | 1013 | + + + | Race | Unknown | + + + | Ethnic Group | Unknown | + + + Author + + + | Author | [facility] | | | and [place] | + + + | Organization | [facility] | | [...] Team Providers + +------+ + | Care Ingot Car Operator Name | Role | Phone | [...] | | | | | | | [place] | | | | | | [...] + + | 12/25/ | Hospital | [facility] | Jerrell Hightower | | | 2018 | Encounter | MED CTR XRAY [address] | MD Catrachita [address] | | | | | [place] | AVE [place], [place] | | | | | [place] [address] | [address] | | | | | [phone] | | | +--------+ + + + [...]
--- OUTSIDE RECORDS SUMMARY | ~2019-08-05 | XMS | Encounter Summary ---
Demographics + + + | Address | [address] | | | [place] [address] | + + + | Home Phone | | + + + | Preferred Language | Unknown | + + + | Marital Status | Single | + + + | Holiness Affiliation | 1013 | + + + | Race | Unknown | + + + | Ethnic Group | Unknown | + + + Author + + + | Author | [facility] | | | and [place] | + + + | Organization | [facility] | | | [...] Team Providers + +------+ + | Care Shipbuilding Draftsperson Name | Role | Phone | + [...] | | | | | | | [place] | | | | | | | [...] Description | +--------+---------+ + + + | 01/19/ | Surgery | [facility] | Jerrell Hightower | RIGHT URETEROSCOPY, | | 2018 | | MED CTR OR INTRA OP | MD [address]ita [address] | LASER LITHOTRIPSY | | | | [address] | AVE [place], [place] | AND STENT | | | | [place], [place] | [address] | | | | | [address] | | | | | | [phone] | | | +--------+---------+ + + + [...] lasts more than a day, a fever [id number] (38 C), or trouble urinating. Date Last Reviewed: 03/10/201619993337-7000 [employer]. [address] [place], [place] [address] [address]. All [facility] ts reserved. This information is not intended [...] Leslie | | | | | | at:[phone]. | | | | + + + [...] + | Performed at: 01 - [facility] [address], | REFERENCE LAB | | [place], [place] [id number] Operator Ground Based Air Defence: Austin Christie MD, Phone: | LESLIE LING | | [phone] | | + + + + + + + + | Performing | Address | City/State/Zipcode | Phone Number | | Organization | | | | + + + + + | REFERENCE LAB | [address] | [place], [place] | [phone] | | [facility] | [facility] | [address] | | + + + + + [...] | 1.010, 1.015, | | | | [place], | | 1.020, 1.025 | | | [...] | 600 mg 600 mg, Oral, ONCE, Fri | | 18 2:36 | | | [...] HOUR PRN, | | | Pain, Starting 01/19/18 at | | | 1745, If oral [...] DBP > 100, Starting | | | 01/19/18 at 1720, Hold if HR | | [...] | mL/hr | | | CONTINUOUS, Starting 01/19/18 | | PM PST | | [...]
--- OUTSIDE RECORDS SUMMARY | ~2019-08-05 | XMS | Encounter Summary ---
Demographics + + + | Address | [address] | | | [place] [address] | + + + | Home Phone | | + + + | Preferred Language | Unknown | + + + | Marital Status | Single | + + + | Anglican Affiliation | 1013 | + + + | Race | Unknown | + + + | Ethnic Group | Unknown | + + + Author + + + | Author | [facility] | | | and [place] | + + + | Organization | [facility] | | [...] Team Providers + +------+ + | Care Air Traffic Control Operator Name | Role | Phone | [...] | | | | | | | [place] | | | | | | | [...] LITHOTRIPSY | | | | [address] | A[address] [place], [place] | AND STENT | | | | [place], [place] | [address] | | | | | [address] | | | | | | [phone] | | | +--------+---------+ + + + [...] lasts more than a day, a fever [id number] (38 C), or trouble urinating. Date Last Reviewed: 03/10/201619997828-2310 The [employer]. [address] [place], [place] [address] [address]. All [facility] ts reserved. This information is not [...] Leslie | | | | | | at:[phone]. | | | | + + + [...] + | Performed at: 01 - [facility] [address], | REFERENCE LAB | | [place], [place] [address] Pulp Mill Supervisor: Austin Christie MD, Phone: | LESLIE LING | | [phone] | | + + + + + + + + | Performing | Address | City/State/Zipcode | Phone Number | | Organization | | | | + + + + + | REFERENCE LAB | [address] | [place], [place] | [phone] | | [facility] | [facility] | [address] | | + + + + + [...] | 1.010, 1.015, | | | | [place], | | 1.020, 1.025 | | | [...]
--- OUTSIDE RECORDS SUMMARY | ~2019-08-05 | XMS | Encounter Summary ---
Demographics + + + | Address | [address] | | | [place] [address] | + + + | Home Phone | | + + + | Preferred Language | Unknown | + + + | Marital Status | Single | + + + | Baptist Affiliation | 1013 | + + + | Race | Unknown | + + + | Ethnic Group | Unknown | + + + Author + + + | Author | [facility] | | | and [place] | + + + | Organization | [facility] | | | [...] Team Providers + +------+ + | Care Lime Kiln Tender Name | Role | Phone | + [...] | | | | | | | MD PERCUT | | | | | | [...] and | | | | [address] | [place] | cYSTOSCOPY | | | | [place], [place] | [address] | URETEROSCOPY W/ | | | | [address] | | LASER and Stent | | | | [phone] | | Placement | +--------+---------+ + + [...] | 1.04 | 0.60 - 1.30 | [facility] | | | | | mg/dL | [facility] | | | | | [facility] | | | | | | CENTER - | | | | | | LABORATORY | | + + + + + + | eGFR if not | 59 (L)Comment: | >=60 | [facility] | | | | GLOMERULAR FILTRATION | mL/min/1.73m2 | Ismael [facility] | | | VINCENTIAN | RATE,ESTIMATED | | MEDICAL | | | | mL/min/1.09d0Zjpp than | | CENTER - | | [...] [address] | [place] | [phone] | | [facility] | | [address] | | | - LABORATORY | | [...] ST. | [address] | [place], [place] | [phone] | | [facility] | | [address] | | | - LABORATORY | | [...] [facility] | | | | | | at:[phone]. | | | | + + + [...] Amanuel Duckworth, | REFERENCE LAB | | [place], [place] [id number] Ornamental Metal Worker Helper: Gene Orozco MD, Phone: | [facility] | | [phone] | | + + + + + + + + | Performing | Address | City/State/Zipcode | Phone Number | | Organization | | | | + + + + + | REFERENCE LAB | [address] | [place], [place] | [phone] | | [facility] | [address] | [address] | | + + + + + [...] + | [facility] [address] | [address] | [place], [place] | [phone] | | [facility] | | [address] | | | - LABORATORY | | [...] was | | | removed and a Tutor Trove 0.035 wire was advanced through the needle [...] + | [address] | [address] | [place], [place] | | | [facility] | | [address] | | | - BLOOD BANK | [...] + | [address] | [address] | [place] | [phone] | | [facility] | | [address] | | | - LABORATORY | | [...] 1.010, 1.015, | [facility] | | | [place], | | 1.020, 1.025 | [facility] | | | POC | | | CORE | | | | | | LABORATORY | | + + + + + + | Lot Number | [id number] | | [facility] | | | | [...] + + + | [address] | [address] [place] [address] [place] | [place] [address] | [phone] | | [facility] CORE | | | [...] | | | | MARJORIE BASS MD ([id number]) | | | | | | on [...] Symptoms, urinary burning., | | | Starting [facility] 12/25/17 at 1539, | | | [...]
--- OUTSIDE RECORDS SUMMARY | ~2019-08-05 | XMS | Encounter Summary ---
Demographics + + + | Address | [address] | | | [place] [address] | + + + | Home Phone | | + + + | Preferred Language | Unknown | + + + | Marital Status | Single | + + + | Spiritism Affiliation | UNK | + + + | Race | White | + + + | Ethnic Group | Not or | + + + Author + + + | Author | [facility] | + + + | Organization | [facility] | + + + | Address | Unknown | + + + | Phone | Unavailable | + + + Support + + +---------+ + | Name | Relationship | Address | Phone | + + +---------+ + | Maribel Patel | ECON | Unknown | | + + +---------+ + Care Team Providers + +------+ + | Care Library Circulation Department Chief Name | Role | Phone | + [...] | | | calculus of | [address] | 3rd floor | | | | | ureter | [address] | [place], [place] | | | | | | [place], [address] | | | | | | [place] [address] | Phone: | | | | | | Phone: | [phone] | | | | | | [phone] | Fax: | | | | | | Fax: | [phone] | | | | | | [phone] | | +--------+--------+ + + + + [...] | | | [address] | [address] | | | | | Loop Physician's | [place], [place] | | | | | [place]ma, 3rd floor | [address] | | | | | [place], [place] | [phone] | | | | | [address] | | | | | | [phone] | | | +--------+---------+ + + + [...]
--- OUTSIDE RECORDS SUMMARY | ~2019-08-05 | XMS | Encounter Summary ---
Demographics + + + | Address | [address] | | | [place] [address] | + + + | Home Phone | | + + + | Preferred Language | Unknown | + + + | Marital Status | Single | + + + | Tenriism Affiliation | 1013 | + + + | Race | Unknown | + + + | Ethnic Group | Unknown | + + + Author + + + | Author | [facility] | | | and [place] | + + + | Organization | [facility] | [...] Team Providers + +------+ + | Care Compressed Gas Plant Worker Name | Role | Phone | + [...] + + | 07/27/ | Office | [facility] | Jerrell Hightower | Nephrolithiasis | | 2019 | Visit | [address] | MD Catrachita [address] | (Primary Dx) | | | | [place] | [place] | | | | | [address] | [address] | | | | | [phone] | | | +--------+---------+ + + + [...] nt Placement; Surgeon: Jerrell Hightower MD; Location: [facility] MAIN OR partial parathyroidectomy 09/2017 TONSILLECTOMY AND ADENOIDECTOMY 2003 URETEROSCOPY Right 01/19/2018 Procedure: RIGHT URETEROSCOPY, LASER LITHOTRIPSY AND STENT; Surgeon: Jerrell Dumas MD; Location: [facility] MAIN OR Family History: Family [...] kg (251 lb 12.3 oz) | B [place] 46.05 kg/m General Appearance: Alert, cooperative, no [...] Negative Negative Internal QC Acceptable Acceptable Specific [place], POC 1.010, 1.015, 1.020, 1.025 Lot Number [...] have not thoroughly proofread this note, and sales vice president errors are very likely to occur. CC: Chris De La Torre MD documented in this encounter Plan of Treatment Not on filedocumented as of this encounter Visit Diagnoses + + | Diagnosis | + + | Nephrolithiasis - Primary Calculus of kidney | + + documented in this encounter
--- OUTSIDE RECORDS SUMMARY | ~2019-08-05 | XMS | Encounter Summary ---
Demographics + + + | Address | [address] | | | [place] [address] | + + + | Home Phone | | + + + | Preferred Language | Unknown | + + + | Marital Status | Single | + + + | Pentecostal Affiliation | 1013 | + + + [...] Team Providers + +------+ + | Care Operations Staff Specialist Security Name | Role | Phone | + +------+ + PCP | Unavailable | + +------+ + Encounter Details +--------+ + + + + | Date | Type | Department | Care Team | Description | +--------+ + + + + | 09/19/ | Hospital | [facility] | ShelbyDevang | Primary | | 2018 | Encounter | [facility] | MD Sarah [address] | hyperparathyroidism | | | | [address] | [address] | ([facility]) | | | | [place], [place] | [place] [address] | | | | | [address] | [phone] | | | | | [phone] | | | +--------+ + + + [...] 09/19/178 Date of Service: 09/19/171626 Status: Signed Travel Physical Therapist: Ana Jon RN (Registered Nurse) Discharge instructions, [...] Notes by Palak Reynaga RPH at 09/19/17 142 Author: Palak Reynaga RPH Service: Pharmacy Author Type: Pharmacist Filed: 09/19/171550 Date of Service: 09/19/171550 Status: Signed Travel Physical Therapist: Palak Reynaga RPH (Pharmacist) Clinical Pharmacy Note: [...] | | | | | performed at [facility];8 | | | | | | Dustin Sullivan;[place] | | | | | | [address] | | | | + + + [...] | | | | | performed at [facility];888 | | | | | | Dustin Sullivan;[place] | | | | | | [address] | | | | + + + [...] | | | | | | MDRD IDGA traceable | | | | | | equation.Testing | | | | | | performed at [facility];888 | | | | | | [facility];[place], [place] | | | | | | [address] | | | | + + + [...] preparation was performed | | | by [employer], [facility], [address] [place] [address]., | | | [place] [address] (Pbx Installer: Bud Freedman M.D.; | | | [facility]#: [id number]). Diagnostician: Phyllis Bolanos MD Pathologist | | [...]
--- OUTSIDE RECORDS SUMMARY | ~2019-08-05 | XMS | Encounter Summary ---
Demographics + + + | Address | [address] | | | [place] [address] | + + + | Home Phone | | + + + | Preferred Language | Unknown | + + + | Marital Status | Single | + + + | Advent Affiliation | 1013 | + + + | Race | Unknown | + + + | Ethnic Group | Unknown | + + + Author + + + | Author | [facility] | | | and [place] | + + + | Organization | [facility] | | | [...] Team Providers + +------+ + | Care Nurse General Duty Name | Role | Phone | + [...] | | | | | | | [place] | | | | | | [...] + | 12/25/ | Hospital | [facility] | Jerrell Hightower | Right kidney stone | | 2018 - | Encounter | MED CTR SURGICAL | MD [address]ita [address] | | | | | [address] [place] | [address] [place] | | | 12/26/ | | [place] [address] | [address] | | | 2017 | | [phone] | | | +--------+ + + + [...] | 1.04 | 0.60 - 1.30 | [facility] | | | | | mg/dL | [facility] | | | | | | MEDICAL | | | | | | CENTER - | | | | | | LABORATORY | | + + + + + + | eGFR if not | 59 (L)Comment: | >=60 | [facility] | | | | GLOMERULAR FILTRATION | mL/min/1.73m2 | [facility] | | | BENINESE | RATE,ESTIMATED | | MEDICAL | | | | mL/min/1.69p1Gohj than | | CENTER - | | [...] + | [facility] | [address] | [place], [place] | [phone] | | [facility] | | [address] | | | - LABORATORY | | [...] + | [facility] | [address] | [place] | [phone] | | [facility] | | [address] | | | - LABORATORY | | [...] [facility] | | | | | | at:[phone]. | | | | + + + [...] + + | Performed at: 01 - [facility] [address], | REFERENCE LAB | | [place], [place] [id number] Speech Pathologist: Gene Orozco MD, Phone: | [facility] [place] | | [phone] | | + + + + + + + + | Performing | Address | City/State/Zipcode | Phone Number | | Organization | | | | + + + + + | REFERENCE LAB | [address] | [place] | [phone] | | [facility] | [address] [place] | [address] | | + + + + + [...] ST. | [address] | [place], [place] | [phone] | | [facility] | | [address] | | | - LABORATORY | | [...] was | | | removed and a Postabon 0.035 wire was advanced through the needle [...] St | [place] | | | [facility] | | [address] | | | - BLOOD BANK | [...] + | [facility] | [address] | [place] | [phone] | | [facility] | | [address] | | | - LABORATORY | | [...] 1.010, 1.015, | [facility] | | | [place], | | 1.020, 1.025 | [facility] | | | POC | | | CORE | | | | | | LABORATORY | | + + + + + + | Lot Number | [id number] | | [facility] | | | | [...] + + + + | ZAY[facility] | [address] [place] [address] NE | [place] [address] | [phone] | | [facility] | | [...] | | | | MARJORIE BASS MD ([id number]) | | | | | | on [...] | | | | | CONTINUOUS, Starting [facility] 12/25/17 | | | | | [...] Symptoms, urinary burning., | | | Starting [facility] 12/25/17 at 1539, | | | [...]
--- OUTSIDE RECORDS SUMMARY | ~2019-08-05 | XMS | Encounter Summary ---
Demographics + + + | Address | [address] | | | [place] [address] | + + + | Home Phone | | + + + | Preferred Language | Unknown | + + + | Marital Status | Single | + + + | Yarsanism Affiliation | 1013 | + + + | Race | Unknown | + + + | Ethnic Group | Unknown | + + + Author + + + | Author | [facility] | | | and [place] | + + + | Organization | [facility] | | | and [...] Team Providers + +------+ + | Care Gum Sprayer Name | Role | Phone | + [...] | | | | Jerrell | [address] | | | | | Nephrolithia | MD Catrachita | [place], | | | | | sis | [address] | [place] [address] | | | | | Procedures | [address]VE [place] | Phone: | | | | | CT Renal | [facility], [place] | [phone] | | | | | [place] | [address] | Fax: | | | | | Contrast | Phone: | [phone] | | | | | [address] | [phone] | | | | | | SCAN,ABDOMEN | Fax: | | | | | | T AND | [phone] | | | | | | PELVIS,W/O [...] | | | | | [place], | [place] [address] | | | | | | [place] | Phone: | | | | | | [address] | [phone] | | | | | | Phone: | Fax: | | | | | | [phone] | [phone] | | | | | | Fax: | | | | | | | [phone] | | +--------+--------+ + + + + Encounter Details +--------+---------+ + + + | Date | Type | Department | Care Team | Description | +--------+---------+ + + + | 11/12/ | Office | [facility] | Jerrell Hightower | Nephrolithiasis | | 2018 | Visit | [address] | MD [address]ita [address] | (Primary Dx); | | | | [place] | [place] | Abnormal urinalysis | | | | [address] | [address] | | | | | [phone] | | | +--------+---------+ + + + [...] UA, POC Negative Negative, 100 mg/dL Specific [place], UA, POC 13,010.000 (A) 1.001 - 1.030 [...] have not thoroughly proofread this note, and ctc operator errors are very likely to occur. CC: [...] + | [address] | [address] | [place] | [phone] | | [facility] | | [address] | | | - LABORATORY | | [...] [address] | [place] | [phone] | | [facility] | | [address] | | | - LABORATORY | | [...] 1.001 - 1.030 | | | | [place], | | | | | | UA, [...]
--- OUTSIDE RECORDS SUMMARY | ~2019-08-05 | XMS | Encounter Summary ---
Demographics + + + | Address | [address] | | | [place] [address] | + + + | Home Phone | | + + + | Preferred Language | Unknown | + + + | Marital Status | Single | + + + | Oriental Orthodox Affiliation | 1013 | + + + | Race | Unknown | + + + | Ethnic Group | Unknown | + + + Author + + + | Author | [facility] | | | and [place] | + + + | Organization | [facility] | | | [...] Team Providers + +------+ + | Care Outside Sales Representative Name | Role | Phone | + [...] | | | [address] [place] | [place] [address] | | | | | [place] [address] | | | | | | [phone] | | | +--------+ + + + [...] + +--------+ + + + | US RENAL LIMITED | Routin | 07/14/2017 | | Results for this | | | e | 12:05 AM | | procedure are in the | | | | PDT | | results section. | + +--------+ + + + documented in this encounter Results US Renal Limited (07/14/2017 12:05 AM PDT) + + | Specimen | [...]
--- OUTSIDE RECORDS SUMMARY | ~2019-08-05 | XMS | Encounter Summary ---
Demographics + + + | Address | [address] | | | [place] [address] | + + + | Home Phone | | + + + | Preferred Language | Unknown | + + + | Marital Status | Single | + + + | Nondenominational Affiliation | 1013 | + + + | Race | Unknown | + + + | Ethnic Group | Unknown | + + + Author + + + | Author | [facility] | | | and [place] | + + + | Organization | [facility] | | | [...] Team Providers + +------+ + | Care Sod Stripper Name | Role | Phone | + [...] | | | [address] [place] | [place] [address] | | | | | [place] [address] | | | | | | [phone] | | | +--------+ + + + [...]
--- OUTSIDE RECORDS SUMMARY | ~2019-08-05 | XMS | Encounter Summary ---
Demographics + + + | Address | [address] | | | [place] [address] | + + + | Home Phone | | + + + | Preferred Language | Unknown | + + + | Marital Status | Single | + + + | Scientologist Affiliation | 1013 | + + + | Race | Unknown | + + + | Ethnic Group | Unknown | + + + Author + + + | Author | [facility] | | | and [place] | + + + | Organization | [facility] | | | [...] Team Providers + +------+ + | Care Boot And Shoe Laborer Name | Role | Phone | + [...] | | | [address] [place] | [place] [address] | | | | | [place] [address] | | | | | | [phone] | | | +--------+ + + + [...]
--- OUTSIDE RECORDS SUMMARY | ~2019-08-05 | XMS | Encounter Summary ---
Demographics + + + | Address | [address] | | | [place] [address] | + + + | Home Phone [...] Team Providers + +------+ + | Care Rn Access Name | Role | Phone | + [...] [place] | | | | | [address] | [address] | | | | | [phone] | | | +--------+ + + + [...]
--- OUTSIDE RECORDS SUMMARY | ~2019-08-05 | XMS | Encounter Summary ---
Demographics + + + | Address | [address] | | | [place] [address] | + + + | Home Phone [...] + + + | Author | [facility] | | | and [place] | + + + | Organization | [facility] [...] Team Providers + +------+ + | Care Courtesy Car Driver Name | Role | Phone | [...] + + | 01/19/ | Hospital | [facility] | Jerrell Hightower | Kidney stone | | 2018 | Encounter | [facility] | MD Catr[address]ita [address] | | | | | [address] | [place] [place], [place] | | | | | [place] | [address] | | | | | [address] | | | | | | [phone] | | | +--------+ + + + [...] lasts more than a day, a fever [id number] (38 C), or trouble urinating. Date Last Reviewed: 03/10/201619991723-3576 [employer] [address] [place] [address], [place] [address]. All righ ts reserved. This information is [...] Leslie | | | | | | at:[phone]. | | | | + + + [...] + | Performed at: 01 - [address], | REFERENCE LAB | | [place], [place] [id number] [employer] Hand: Austin Christie MD, Phone: | [facility] | | [phone] | | + + + + + + + + | Performing | Address | City/State/Zipcode | Phone Number | | Organization | | | | + + + + + | REFERENCE LAB | [address] | [place], [place] | [phone] | | [facility] | [place] | [address] | | + + + + + [...] | 1.010, 1.015, | | | | [place], | | 1.020, 1.025 | | | [...]
--- OUTSIDE RECORDS SUMMARY | ~2019-08-05 | XMS | Encounter Summary ---
Demographics + + + | Address | [address] | | | [place] [address] | + + + | Home Phone [...] Team Providers + +------+ + | Care Accountant Name | Role | Phone | + [...] | | | | | | | [place] PERCUT | | | | | | [...] | | | | | [address] | ST [place], [place] | | | | | [place], [place] | [address] | | | | | [address] | [phone] | | | | | [phone] | | | +--------+ + + + [...] [address] | | eral | Hand; irli-nty-yzasas catheter | Chandler Roberson, RN | Tiana [...] 10:24 AM PDT Anesthesia Airway | | Qbklorila52/18/2018 10:00Preprocedure check: patient identified, oxygen, airway | [...] and video | | laryngoscopePerforming provider: TOM ASTORGA PComments: Neutral Head Position, no | | [...]
--- OUTSIDE RECORDS SUMMARY | ~2019-08-05 | XMS | Encounter Summary ---
Demographics + + + | Address | [address] | | | [place] [address] | + + + | Home Phone | | + + + | Preferred Language | Unknown | + + + | Marital Status | Single | + + + | Yazidi Affiliation | 1013 | + + + | Race | Unknown | + + + | Ethnic Group | Unknown | + + + Author + + + | Author | [facility] | | | and [place] | + + + | Organization | [facility] | | [...] Team Providers + +------+ + | Care Oil Drilling Engineer Name | Role | Phone | + [...] | | | | Jerrell | [address] | | | | | Nephrolithia | MD Catrachita | [place], | | | | | sis | [address] | [place] [address] | | | | | Procedures | AVE [place] | Phone: | | | | | CT Renal | [facility] [place] | [phone] | | | | | [place] | [address] | Fax: | | | | | Contrast | Phone: | [phone] | | | | | [address] | [phone] | | | | | | SCAN,ABDOMEN | Fax: | | | | | | T AND | [phone] | | | | | | PELVIS,W/O [...] + + | 01/01/ | Telephone | [facility] | Jerrell Hightower | Nephrolithiasis | | 2018 | | [address] | MD Catr[address]ita [address] | | | | | [place] | [place] | | | | | [address] | [address] | | | | | [phone] | | | +--------+ + + + [...] documented for JERRELL AGUILAR ENIDWING in the [employer] | | | | Critical Result system on 01/13/2018 12:29 PM, Message ID [id number]. | | | Dictated and Signed by: [...] documented for JERRELL HIGHTOWERin | | the [employer] | Critical Result system on 01/13/2018 12:29 PM, MessageID | | [id number].Dictated and Signed by: Jesus Paz MD Electronically [...] documented for JERRELL HIGHTOWER | |in the [employer] | Critical Result system on 01/13/2018 12:29 PM, Message | |ID [id number]. | | | |Dictated and Signed by: [...]
--- OUTSIDE RECORDS SUMMARY | ~2019-08-05 | XMS | Encounter Summary ---
Demographics + + + | Address | [address] | | | [place] [address] | + + + | Home Phone | | + + + | Preferred Language | Unknown | + + + | Marital Status | Single | + + + | Sikhism Affiliation | 1013 | + + + | Race | Unknown | + + + | Ethnic Group | Unknown | + + + Author + + + | Author | [facility] | | | and [place] | + + + | Organization | [facility] | | | and [...] Team Providers + +------+ + | Care Tank Bottom Assembler Name | Role | Phone | + [...] | | | [address] [place] | [place] [address] | | | | | [place] [address] | | | | | | [phone] | | | +--------+ + + + [...]
--- OUTSIDE RECORDS SUMMARY | ~2019-08-05 | XMS | Clinical Summary ---
Demographics + + + | Address | [address] | | | [place] [address] | + + + | Home Phone | | + + + | Preferred Language | Unknown | + + + | Marital Status | | + + + | Quaker Affiliation | 1013 | + + + | Race | Unknown | + + + | Ethnic Group | Unknown | + + + Author + + + | Author | [facility] (Historical as of | | | 10-24-18) | + + + | Organization | [facility] (Historical as of | | | 10-24-18) [...] Team Providers + +------+ + | Care Roll Threader Operator Name | Role | Phone | [...] Overview: Added automatically from request for surgery [id number] | + + + + + | [...] | [employer] | ODS | [id number] | | | | | | HEALTH [...] | | al/Fam | | 1981 | [phone] | [place] | | | lalita | | | [address]903 | [address] | + +--------+ +--------+ + +
--- OUTSIDE RECORDS SUMMARY | ~2019-08-05 | XMS | Encounter Summary ---
Demographics + + + | Address | [address] | | | [place] [address] | + + + | Home Phone | | + + + | Preferred Language | Unknown | + + + | Marital Status | Single | + + + | Muslim Affiliation | 1013 | + + + | Race | Unknown | + + + | Ethnic Group | Unknown | + + + Author + + + | Author | [facility] | | | and [place] | + + + | Organization | [facility] | | [...] Team Providers + +------+ + | Care Packaging Sales Consultant Name | Role | Phone | + +------+ + | Chris De La Torre MD | PCP | | + +------+ + Encounter Details +--------+ + + + + | Date | Type | Department | Care Team | Description | +--------+ + + + + | 01/15/ | Episode | [facility] | Glendy Sahu | | | 2017 | Changes | [address] L[address]I Avalos RN | | | | | [place] | | | | | | [address] | | | | | | [phone] | | | +--------+ + + + [...]
--- OUTSIDE RECORDS SUMMARY | ~2019-08-05 | XMS | Encounter Summary ---
Demographics + + + | Address | [address] | | | [place] [address] | + + + | Home Phone | | + + + | Preferred Language | Unknown | + + + | Marital Status | Single | + + + | Orthodoxy Affiliation | 1013 | + + + | Race | Unknown | + + + | Ethnic Group | Unknown | + + + Author + + + | Author | [facility] | | | and [place] | + + + | Organization | [facility] | | | [...] Team Providers + +------+ + | Care Metal Bumper Name | Role | Phone | + [...] + + | 03/17/ | Office | [facility] | Jerrell Hightower | Nephrolithiasis | | 2019 | Visit | [address] | MD Catrachita [address] | (Primary Dx); | | | | [place] | [place] | History of | | | | [address] | [address] | hyperparathyroidism; | | | | [phone] | | Dehydration | +--------+---------+ + + [...] Negative Negative Internal QC Acceptable Acceptable Specific [place], POC 1.010, 1.015, 1.020, 1.025 Lot Number [...] have not thoroughly proofread this note, and staff occupational therapist errors are very likely to occur. CC: [...]
--- OUTSIDE RECORDS SUMMARY | ~2019-08-05 | XMS | Encounter Summary ---
Demographics + + + | Address | [address] | | | [place] [address] | + + + | Home Phone | | + + + | Preferred Language | Unknown | + + + | Marital Status | Single | + + + | Jewish Affiliation | 1013 | + + + | Race | Unknown | + + + | Ethnic Group | Unknown | + + + Author + + + | Author | [facility] | | | and [place] | + + + | Organization | [facility] | | | [...] Team Providers + +------+ + | Care Software Installer Name | Role | Phone | + [...] + + + + | 01/19/ | Anesthesia | [facility] | Miller Marshall | | | 2018 | Event | MED CTR OR INTRA OP | Olvin PACHECO MD [address] | | | | | [address] | [address] [place] | | | | | [place], [place] | [place] [address] | | | | | [address] | | | | | | [phone] | | | | | | | Tom Mendoza | | | | | | MD Mitesh [address] | | | | | | [address] [place] | | | | | | [place] [address] | | | | | | | | | | | | | | +--------+ + + + + Anesthesia Record + + + + + | Procedure Name | Responsible | Anesthesia Start | Anesthesia Stop Time | | | Anesthesiologist | Time | | + + + + + | RIGHT URETEROSCOPY, | Miller Marshall | 01/19/18 1603 | 01/19/18 1729 | | LASER LITHOTRIPSY | IIMD | | | | AND STENT (Right | | | | | Ureter) | | | | + + + + + +----+---+ + + | Da | T | Event | Comment | | te | i | | | | | m | | | | | e | | | +----+---+ + + | 11 | 1 | Antibiotic | | | /1 | 4 | Given | | | 2/ | 3 | | | | 20 | 5 | | | | 18 | | | | +----+---+ + + | | 1 | | | | | 5 | | | | | 3 | | | | | 2 | | | +----+---+ + + | | 1 | An Checkout | Pre-use anesthesia machine/equipment checkout. | | | 6 | | | | | 0 | | | | | 0 | | | +----+---+ + + | | 1 | An Start | Reassessment prior to anesthesia induction/procedure. | | | 6 | | | | | 0 | | | | | 3 | | | +----+---+ + + | | 1 | Preoxygenat | | | | 6 | ed | | | | 0 | | | | | 7 | | | +----+---+ + + | | 1 | An | | | | 6 | Induction | | | | 0 | | | | | 9 | | | +----+---+ + + | | 1 | An | | | | 6 | Intubation | | | | 0 | | | | | 9 | | | +----+---+ + + | | 1 | Canadian | | | | 6 | 43-degrees | | | | 1 | | | | | 2 | | | +----+---+ + + | | 1 | Pre-Procedu | | | | 6 | ral Timeout | | | | 2 | Completed | | | | 2 | | | +----+---+ + + | | 1 | First | | | | 6 | Inc/Proc St | | | | 2 | | | | | 3 | | | +----+---+ + + | | 1 | Canadian off | | | | 7 | | | | | 1 | | | | | 9 | | | +----+---+ + + | | 1 | Breathing | | | | 7 | Spontaneous | | | | 1 | ly | | | | 9 | | | +----+---+ + + | | 1 | an stop | | | | 7 | data | | | | 2 | | | | | 5 | | | +----+---+ + + | | 1 | An Stop | Patient handed off to recovery nurse. | | | 2 | | | | | 9 | | | +----+---+ + + +------+ | Meds | +------+ + + + | Name | Total | + + + | midazolam | 2 mg | + + + | fentaNYL | 150 mcg | + + + | lidocaine 2% | 100 mg | + + + | propofol (DIPRIVAN) injection | 200 mg | | (bolus) (20 mL) | | + + + | propofol | 198.24 mg | + + + | dexamethasone | 8 mg | + + + | ondansetron | 4 mg | + + + | LR (Infusion) | 850 mL | + + + + + | Name | + + [...] +--------+ + + + | Periph | 01/19/18; 1421; Left; Distal; | 01/19/18 1421 by | 01/19/18 184 by John | | eral | Hand; nraw-hxt-ftsjda catheter | Chandler Roberson RN | Herminio Asencio RN | | IV | system; 20 gauge; topical | | | | | anesthetic spray applied, | | | | | tolerated well, appears | | | | | comfortable; 01/19/18; 184 | | | +--------+ + + + | Airway | Placement Date: 01/19/18; | 01/19/18 160 by | 01/19/18 173 by | | | Placement Time: 1609 (created via | Tom Sagastume | Chandrika Loo, | | | procedure documentation); Mask | MD Jeronimo | [employer] | | | Ventilation: EZ; Attempts: 1; | | | | | Airway Type: laryngeal mask; | | | | | Size: 4; Trauma: none; Placement | | | | | Check: exhaled CO2 detection | | | | | device, bilateral chest rise, | | | | | breath sounds equal bilaterally; | | | | | Removal: removed by alanna GREENBERG | | | | | protocol; Removal Date: 01/19/18; | | | | | Removal Time: 1735; Additional | | | | | Comments: Atraumatic LMA | | | | | placement with quality seat and | | | | | seal. | | | +--------+ + + + | Read | 01/19/18; 1626; Bilateral; | 01/19/18 1626 by | 01/19/18 184 by John | | only - | perineum; 01/19/18; 184 | Cecilia Pickens RN | L DIONICIO Asencio | | | | | | | [...] | ANE AIRWAY NOTE | Routin | 01/19/2018 | | Results for this | | | e | 4:23 PM | | procedure are in the | | | | PST | | results section. | + +--------+ + + + documented in this encounter Results Anesthesia Airway Note (01/19/2018 4:23 PM PST) + + + | Narrative | Performed At | + + + | Tom Mendoza MD 01/19/2018 16:23 Anesthesia Airway | | | Placement 01/19/2018 16:09 Preprocedure check: patient | | | identified, oxygen, airway assessed, suction, airway equipment | | | checked and patient reassessment prior to induction Mask ventilation: | | | easy Attempts: 1 Airway type: laryngeal mask Size: 4 Cuffed: | | | cuffed Route, reference point: center of mouth Tube secured with: | | | adhesive tape Trauma: none Tube placement verification: bilateral | | | chest rise, equal bilateral breath sounds and carbon dioxide | | | detection Performing provider: TOM MENDOZA Comments: | | | Atraumatic LMA placement with quality seat and seal. | | | Electronically Signed by: Tom Mendoza MD | | | ESig date/time: 01/19/2018 16:23 | | | | | + + + + + | Procedure Note | + + | Tom Mendoza MD - 01/19/2018 4:23 PM PST Anesthesia Airway | | Knkynxbmn90/12/2018 16:09Preprocedure check: patient identified, oxygen, airway | | assessed, suction, airway equipment checked and patient reassessment prior to | | inductionMask ventilation: easyAttempts: 1Airway type: laryngeal maskSize: 4Cuffed: | | cuffedRoute, reference point: center of mouthTube secured with: adhesive tapeTrauma: | | noneTube placement verification: bilateral chest rise, equal bilateral breath sounds and | | carbon dioxide detectionPerforming provider: TOM MENDOZAComments: Atraumatic | | LMA placement with quality seat and seal.Electronically Signed by: Tom Mendoza MD | | ESig date/time: 01/19/2018 16:23 | |Route, reference point: center of mouth | |Tube secured with: adhesive tape | |Trauma: none | |Tube placement verification: bilateral chest rise, equal bilateral breath sounds and carbon dioxide detection | |Performing provider: TOM MENDOZA | | | |Comments: Atraumatic LMA placement with quality seat and seal. | | | | | |Electronically Signed by: Tom Mendoza MD ESi date/time: 16:23 | | | + + documented in this encounter Visit Diagnoses Not on filedocumented in this encounter Administered Medications + +--------+ +------+------+------+ | Medication Order | MAR | Action | Dose | Rate | Site | | | Action | Date | | | | + +--------+ +------+------+------+ | dexamethasone (PF) 10 mg/mL | Given | 11/12/20 | 8 mg | | | | injection Intravenous, PRN, | | 18 4:09 | | | | | Starting 01/19/18 at 1609, | | PM PST | | | | | Anesthesia Intra-op | | | | | | + +--------+ +------+------+------+ +---+---+ | | | +---+---+ + +-------+ +--------+---+---+ | fentaNYL (PF) injection | Given | 01/20/20 | 25 mcg | | | | Intravenous, PRN, Pain, Starting | | 18 4:27 | | | | | 01/19/18 at 1607, Anesthesia | | PM PST | | | | | Intra-op | | | | | | + +-------+ +--------+---+---+ +-------+ +--------+---+---+ | Given | 01/20/20 | 25 mcg | | | | | 18 4:19 | | | | | | PM PST | | | | +-------+ +--------+---+---+ | Given | 01/20/20 | 25 mcg | | | | | 18 4:13 | | | | | | PM PST | | | | +-------+ +--------+---+---+ +---+---+ | | | +---+---+ + +---------+ +---+---+---+ | lactated ringers (LR) infusion | New Bag | 01/20/20 | | | | | Intravenous, CONTINUOUS PRN, | | 18 2:30 | | | | | Starting Fri01/19/18 at 1430, | | PM PST | | | | | Anesthesia Intra-op | | | | | | + +---------+ +---+---+---+ +---+---+ | | | +---+---+ + +-------+ +--------+---+---+ | lidocaine (PF) 2% injection | Given | 01/20/20 | 100 mg | | | | Intravenous, PRN, Starting Fri | | 18 4:09 | | | | | 01/19/18 at 1609, Anesthesia | | PM PST | | | | | Intra-op | | | | | | + +-------+ +--------+---+---+ +---+---+ | | | +---+---+ + +-------+ +------+---+---+ | midazolam (VERSED) 1 mg/mL | Given | 01/20/20 | 2 mg | | | | injection Intravenous, PRN, | | 18 4:03 | | | | | Anxiety, Starting Fri01/19/18 at | | PM PST | | | | | 1603, Anesthesia Intra-op | | | | | | + +-------+ +------+---+---+ +---+---+ | | | +---+---+ + +-------+ +------+---+---+ | ondansetron (ZOFRAN) injection | Given | 01/20/20 | 4 mg | | | | Intravenous, PRN, Nausea, | | 18 4:09 | | | | | Vomiting, Starting Fri01/19/18 | | PM PST | | | | | at 1609, Anesthesia Intra-op | | | | | | + +-------+ +------+---+---+ +---+---+ | | | +---+---+ + +---------+ + +-------+---+ | propofol (DIPRIVAN) injection | New Bag | 01/20/20 | 30 | 20.2 | | | Intravenous, CONTINUOUS PRN, | | 18 4:13 | mcg/kg/m | mL/hr | | | Starting Fri01/19/18 at 1613, | | PM PST | in | | | | Anesthesia Intra-op | | | | | | + +---------+ + +-------+---+ +---+---+ | | | +---+---+ + +-------+ +--------+---+---+ | propofol (DIPRIVAN) injection | Given | 01/20/20 | 200 mg | | | | Intravenous, PRN, Starting Fri | | 18 4:09 | | | | | 01/19/18 at 1609, Anesthesia | | PM PST | | | | | Intra-op | | | | | | + +-------+ +--------+---+---+ +---+---+ | | | +---+---+ documented in this encounter"
--- OUTSIDE RECORDS SUMMARY | ~2019-08-05 | XMS | Encounter Summary ---
Demographics + + + | Address | [address] | | | [place] [address] | + + + | Home Phone | | + + + | Preferred Language | Unknown | + + + | Marital Status | Single | + + + | Yazidi Affiliation | 1013 | + + + | Race | Unknown | + + + | Ethnic Group | Unknown | + + + Author + + + | Author | [facility] | | | and [place] | + + + | Organization | [facility] | | | [...] Team Providers + +------+ + | Care Manager Drilling Name | Role | Phone | + [...] | | | | Jerrell | [address] | | | | | Nephrolithia | MD Catrachita | [place], | | | | | sis | [address] | [place] [address] | | | | | Procedures | AVE [place] | Phone: | | | | | CT Renal | [place] | [phone] | | | | | [place] | [address] | Fax: | | | | | Contrast | Phone: | [phone] | | | | | [address] | [phone] | | | | | | SCAN,ABDOMEN | Fax: | | | | | | T AND | [phone] | | | | | | PELVIS,W/O [...] | | | | Jerrell | [address] | | | | | Nephrolithia | MD Catrachita | [place], | | | | | sis | [address] | [place] [address] | | | | | Procedures | AVE [place] | Phone: | | | | | CT Renal | [place] | [phone] | | | | | [place] | [address] | Fax: | | | | | Contrast | Phone: | [phone] | | | | | [address] | [phone] | | | | | | SCAN,ABDOMEN | Fax: | | | | | | T AND | [phone] | | | | | | PELVIS,W/O | | | | | | | CONTRAST | | | +--------+--------+ + + + + Encounter Details +--------+ + + + + | Date | Type | Department | Care Team | Description | +--------+ + + + + | 01/13/ | Hospital | [facility] | Jerrell Hightower | Nephrolithiasis | | 2018 | Encounter | MED CTR [address] | MD [address] | | | | | [place], | [place], [place] | | | | | [place] [address] | [id number] | | | | | [phone] | | | +--------+ + + + [...] Renal [address] Contrast (01/13/2018 11:01 AM [facility]) + + | Specimen | + + [...] been documented for JERRELL HIGHTOWER in the [employer] | | | | Critical Result system on 01/13/2018 12:29 PM, Message ID [id number]. | | | Dictated and Signed by: [...] for JERRELL AGUILAR Don | | the [employer] | Critical Result system on 01/13/2018 12:29 PM, MessageID | | [id number].Dictated and Signed by: Jesus Paz MD Electronically [...] documented for JERRELL HIGHTOWER | |in the [employer] | Critical Result system on 01/13/2018 12:29 PM, Message | |ID [id number]. | | | |Dictated and Signed by: [...]
--- OUTSIDE RECORDS SUMMARY | ~2019-08-05 | XMS | Encounter Summary ---
Demographics + + + | Address | [address] | | | [place] [address] | + + + | Home Phone | | + + + | Preferred Language | Unknown | + + + | Marital Status | Single | + + + | Druze Affiliation | 1013 | + + + | Race | Unknown | + + + | Ethnic Group | Unknown | + + + Author + + + | Author | [facility] | | | and [place] | + + + | Organization | [facility] | | | [...] Team Providers + +------+ + | Care Clinic Nurse Name | Role | Phone | + [...] | | | | | | | DC | | | | | | | [...] | | | | | [address] | [address] [place] | | | | | [place], [place] | [place] [address] | | | | | [address] | | | | | | [phone] | | | | | | | Tom Mendoza | | | | | | MD Mitesh [address] | | | | | | [address] [place] | | | | | | [place] [address] | | | | | | | [...] +----+---+ + + | | 1 | [place] | | | | 6 | 43-degrees [...] +----+---+ + + | | 1 | [place] off | | | | 7 | [...] by John | | eral | Hand; ozsi-woi-lrflbl catheter | Chandler oRberson RN | Herminio Asencio RN | | [...] procedure documentation); Mask | MD Jeronimo | SIGNAL SUPERVISOR | | | Ventilation: EZ; Attempts: 1; [...] 4:23 PM PST Anesthesia Airway | | Emkcnqvnj07/12/2018 16:09Preprocedure check: patient identified, oxygen, airway | [...]
--- OUTSIDE RECORDS SUMMARY | ~2019-08-05 | XMS | Encounter Summary ---
Demographics + + + | Address | [address] | | | [place] [address] | + + + | Home Phone | | + + + | Preferred Language | Unknown | + + + | Marital Status | Single | + + + | Mormonism Affiliation | 1013 | + + + [...] Team Providers + +------+ + | Care Field Installation Technician Name | Role | Phone | + +------+ + | Chris De La Torre MD | PCP | | + +------+ + Reason for Visit +---------+ + | Reason | Comments | +---------+ + | Results | | +---------+ + Encounter Details +--------+ + + + + | Date | Type | Department | Care Team | Description | +--------+ + + + + | 11/24/ | Telephone | [facility] | Jerrell Hightower | Results | | 2017 | | [address] | MD [address]ita [address] | | | | | [place] | [place] | | | | | [address] | [address] | | | | | [phone] | | | +--------+ + + + [...]
--- OUTSIDE RECORDS SUMMARY | ~2019-08-05 | XMS | Encounter Summary ---
Demographics + + + | Address | [address] | | | [place] [address] | + + + | Home Phone | | + + + | Preferred Language | Unknown | + + + | Marital Status | Single | + + + | Jainism Affiliation | 1013 | + + + | Race | Unknown | + + + | Ethnic Group | Unknown | + + + Author + + + | Author | [facility] | | | and [place] | + + + | Organization | [facility] | | | [...] Team Providers + +------+ + | Care Tobacco Warehouse Agent Name | Role | Phone | + [...] [place] | | | | | | [address] | | | | | | [phone] | | | +--------+ + + + [...]
--- OUTSIDE RECORDS SUMMARY | ~2019-08-05 | XMS | Encounter Summary ---
Demographics + + + | Address | [address] | | | [place] [address] | + + + | Home Phone | | + + + | Preferred Language | Unknown | + + + | Marital Status | Single | + + + | Judaism Affiliation | 1013 | + + + | Race | Unknown | + + + | Ethnic Group | Unknown | + + + Author + + + | Author | [facility] | | | and [place] | + + + | Organization | [facility] | | | and [...] Team Providers + +------+ + | Care Motorcycle Service Technician Name | Role | Phone | [...] [place] | | | | | [address] | [address] | | | | | [phone] | | | +--------+ + + + [...] for 8AM. He will need assistance from salvage engineering technician. )Ultrasound guided percutaneous nephrostomy. Glendy Grady [...] was | | | removed and a [employer] 0.035 wire was advanced through the needle [...] + + | Performing | Address | City[facility] | Phone Number | | Organization | | | | + +---------+ + + | [facility] | | | | + +---------+ + + documented in this encounter Visit Diagnoses + + | Diagnosis | + + | Right kidney stone - Primary Calculus of kidney | + + documented in this encounter"
--- OUTSIDE RECORDS SUMMARY | ~2019-08-05 | XMS | Encounter Summary ---
Demographics + + + | Address | [address] | | | [place] [address] | + + + | Home Phone | | + + + | Preferred Language | Unknown | + + + | Marital Status | Single | + + + | Taoism Affiliation | 1013 | + + + | Race | Unknown | + + + | Ethnic Group | Unknown | + + + Author + + + | Author | [facility] | | | and [place] | + + + | Organization | [facility] | | | [...] Team Providers + +------+ + | Care Supervisor [employer] Name | Role | Phone | + [...] + + | 03/16/ | Telephone | [facility] | Jerrell Hightower | Appointment | | 2019 | | [address] | [place] [address] | | | | | [place] | [place] | | | | | [address] | [id number] | | | | | [phone] | | | +--------+ + + + [...]
--- OUTSIDE RECORDS SUMMARY | ~2019-08-05 | XMS | Encounter Summary ---
Demographics + + + | Address | [address] | | | [place] [address] | + + + | Home Phone [...] + + + | Author | [facility] | | | and [place] | + + + | Organization | [facility] | | | [...] Team Providers + +------+ + | Care Street Worker Name | Role | Phone | [...] + + | 11/24/ | Telephone | [facility] | Jerrell Hightower | Results | | 2017 | | [address] | [place] [address] | | | | | [place] | [place] | | | | | [address] | [address] | | | | | [phone] | | | +--------+ + + + [...]
[~2019-08-05 08:16] MED LIST changes: +AMOXICILLIN500 MG PO; +BACTRIM DS TAB1 EACH PO
[2019-08-05] MEDS ORDERED: NORCO 7.5-3251 EACH PO (09:05)
[2019-08-05] MEDS ORDERED: ONDANSETRON ODT8 MG PO (09:05)
== END 2019-08-05 09:26 | disposition home or self-care (01) ==
LOC: ED 08:16
DX: O9A.212 Injury, poisoning and certain other consequences of external causes complicating pregnancy, second trimester (principal); S44.91XA Injury of unspecified nerve at shoulder and upper arm level, right arm, initial encounter; O09.512 Supervision of elderly primigravida, second trimester; Z87.891 Personal history of nicotine dependence; Z88.1 Allergy status to other antibiotic agents; Z3A.21 21 weeks gestation of pregnancy; X58.XXXA Exposure to other specified factors, initial encounter
CPT/HCPCS: 99283

== ENCOUNTER 2020-01-06 00:05 | Inpatient (IN) | payer MEDICAID ==
[~2020-01-06] VITALS: Ht 157.5 cm; Wt 117.0 kg
--- NOTE | ~2020-01-06 | OR ---
[facility] [address] [place], [place] [address] Draft DATE OF OPERATION: 01/06/2020 SURGEON: Abimael Harrison MD Patient of Dr. Harrison. PREOPERATIVE DIAGNOSIS: Nonreassuring heart rate tracing and arrest of dilation. POSTOPERATIVE DIAGNOSIS: Nonreassuring heart rate tracing and arrest of dilation. PROCEDURE: Primary low transverse segment section. Delivery of live female . FITTER / WELDER: Dr. Henriquez. ANESTHESIA: Epidural. ESTIMATED BLOOD LOSS: 500 mL. COMPLICATIONS: None. DRAINS: Jett to bladder. FINDINGS: Live female infant, Apgars 10 and 10. Weight 7 pounds 3 ounces. Normal uterus, normal tubes and ovaries bilateral. DESCRIPTION OF PROCEDURE: The patient was brought into the operating room, placed supine position. After adequate epidural anesthesia was obtained, she was prepped and draped in usual sterile fashion. The patient already had Jett catheter in place. A Pfannenstiel skin incision was made with a scalpel and extended through the subcutaneous tissue with the Bovie and the scalpel. The fascia was nicked with scalpel and extended transverse fashion using PATIENT NAME: JEFF ALICEA OPERATIVE REPORT DATE OF : 78 REPORT #: [id number] PHYSICIAN: ABIMAEL HARRISON MD PCP: JERICA MAGALLANES MD REPORT IS CONFIDENTIAL AND NOT TO BE RELEASED WITHOUT AUTHORIZATION [facility] [address] [place], [place] [address] Draft curved scissors. The underlying abdominal musculature was bluntly and sharply from the fascia above and below the incision. The abdominal musculature was bluntly along the midline. The peritoneum was grasped with hemostats, elevated, nicked with scissors, extended vertical fashion using scissors. The Rafy self-retaining retractor was inserted into the incision and tightened in place. The lower uterine segment was identified. The bladder noted to be well below the area of dissection. The lower uterine segment was then carefully nicked with scalpel and extended in transverse fashion using finger dissection. It was noted to be in the vertex GUILLERMINA presentation. The infant head was easily delivered from the incision and cord doubly clamped and cut. The infant was passed off table in good condition awaiting nurse. Cord was noted to be around the neck once loosely, which was easily removed as the baby was delivered. Placenta was manually removed and uterine cavity explored a lap pad to remove any retained membranes. An angle stitch of 0 Monocryl was placed at one end of the incision and a running locking stitch of 0 Monocryl starting at the other end used to close the incision. A 2nd running stitch of 0 Monocryl was used to imbricate the 1st layer. Good hemostasis was noted. The entire pelvis was irrigated, suctioned, and examined any superficial bleeding spots cauterized with the Bovie. The Rafy retractor was removed and sheet of ACell placed over the lower uterine segment to help with healing. The anterior wall peritoneum was closed using running stitch of 2-0 Vicryl suture. The abdominal musculature was reapproximated using interrupted stitches of 0 Vicryl suture. The abdominal musculature was irrigated, suctioned, and examined. Any bleeding spots were cauterized with the Bovie. Powdered ACell was then sprinkled on the abdominal musculature to help with healing. Then, the fascia closed using 2 running stitches of 0 Vicryl suture meeting in the midline. Subcutaneous tissue was irrigated, suctioned, and examined. Any bleeding spots cauterized with the Bovie. Subcutaneous tissue was then closed using interrupted stitches of 3-0 Vicryl suture. Skin was reapproximated using skin clips. The patient tolerated the procedure well, went to recovery room in good condition. The sponge, needle, and instrument count correct at the end of the procedure. Abimael Harrison MD MJB/MODL /[id number] PATIENT NAME: JEFF ALICEA OPERATIVE REPORT DATE OF : 78 REPORT #: [id number] PHYSICIAN: ABIMAEL HARRISON MD PCP: JERICA MAGALLANES MD REPORT IS CONFIDENTIAL AND NOT TO BE RELEASED WITHOUT AUTHORIZATION [facility] [address] [place], [place] [address], [place] [address] Draft Copies: ~ PATIENT NAME: JEFF ALICEA OPERATIVE REPORT DATE OF : 78 REPORT #: [id number] PHYSICIAN: ABIMAEL HARRISON MD PCP: JERICA MAGALLANES MD REPORT IS CONFIDENTIAL AND NOT TO BE RELEASED WITHOUT AUTHORIZATION
[~2020-01-06 00:05] MED LIST changes: +NORCO 7.5-3251 EACH PO; +ONDANSETRON ODT8 MG PO
--- NOTE | 2020-01-06 13:13 | PR ---
[facility] [address] [place] [address] Signed Progress Notes IP Datetime Report Generated by CPN: 01/06/2020 13:13 PROGRESS NOTES: [id number] Impression: Normal Progression of Labor Procedures: Artificial ROM; Intrauterine Pressure Catheter Plan: Continue Present Management VITAL SIGNS: [id number] Vital Signs: Reviewed; Within Normal Limits EXAM: [id number] Dilatation: 3.0 Effacement: 60 Station: -3 Contractions: irregular MEMBRANES: [id number] Membranes Status: Ruptured Comments: Comfortable with Epidural. Continue monitoring. FETUS A: [id number] FHR Baseline: 130 Variability: Moderate 6-25bpm Accelerations: 15X15 Presentation: Vertex FETUS B: [id number] Signing Physician: Kimmy Boalnos MD Copies: ~ *Electronically Signed* 01/06/20 1313 KIMMY BOLANOS MD PATIENT NAME: JEFF ALICEA PROGRESS NOTE DATE OF : 78 PHYSICIAN: KIMMY BOLANOS MD RPT #: [id number] REPORT IS CONFIDENTIAL AND NOT TO BE RELEASED WITHOUT AUTHORIZATION
--- NOTE | 2020-01-06 15:20 | PR ---
[facility] [address] [facility] [place], [place] [address] Signed Progress Notes IP Datetime Report Generated by CPN: 01/06/2020 15:20 PROGRESS NOTES: [id number] Impression: Normal Progression of Labor Other Impressions: Slow progression Procedures: Scalp Electrode Plan: Augmentation VITAL SIGNS: [id number] Vital Signs: Reviewed; Within Normal Limits EXAM: [id number] Dilatation: 3.0 Effacement: 80 Station: -3 Contractions: irregular MEMBRANES: [id number] Membranes Status: Ruptured Comments: Slow progress, with head still not well-applied to cervix. Will start Pitocin augmentation. FETUS A: [id number] FHR Baseline: 130 Variability: Moderate 6-25bpm Accelerations: 15X15 Presentation: Vertex FETUS B: [id number] Signing Physician: Kimmy Bolanos MD Copies: ~ *Electronically Signed* 01/06/20 1520 KIMMY BOLANOS MD PATIENT NAME: JEFF ALICEA PROGRESS NOTE DATE OF : 79 PHYSICIAN: KIMMY BOLANOS MD RPT #: [id number] REPORT IS CONFIDENTIAL AND NOT TO BE RELEASED WITHOUT AUTHORIZATION
--- NOTE | 2020-01-06 16:07 | PR ---
[facility] [address] [facility] [place], [place] [address] Signed Progress Notes IP Datetime Report Generated by CPN: 01/06/2020 16:07 PROGRESS NOTES: [id number] Impression: Normal Progression of Labor Other Impressions: Slow Progress Procedures: Scalp Electrode Plan: Augmentation VITAL SIGNS: [id number] Vital Signs: Reviewed; Within Normal Limits EXAM: [id number] Dilatation: 4.0 Effacement: 70 Station: -3 Contractions: irregular MEMBRANES: [id number] Membranes Status: Ruptured Comments: Several deep variable decels, tried several positions, now sitting upright with return to normal FHR, so Pitiocin not started yet. Will try starting Pitiocin now. Discussed possible C/S if no progress or intolerance to contracitons. FETUS A: [id number] FHR Baseline: 130 Variability: Moderate 6-25bpm Accelerations: 15X15 Presentation: Vertex FETUS B: [id number] Signing Physician: Abimael Bolanos MD Copies: ~ *Electronically Signed* 01/06/20 160 ABIMAEL BOLANOS MD PATIENT NAME: OSMANTYLEONOR SmithRommel MORILLO PROGRESS NOTE DATE OF : 78 PHYSICIAN: ABIMAEL BOLANOS MD RPT #: [id number] REPORT IS CONFIDENTIAL AND NOT TO BE RELEASED WITHOUT AUTHORIZATION
--- NOTE | 2020-01-06 18:20 | PR ---
[facility] [address] [place], [place] [address] Signed Progress Notes IP Datetime Report Generated by CPN: 01/06/2020 18:20 PROGRESS NOTES: [id number] Impression: Arrest of Dilatation/Descent; Non-reassuring Heart Rate Other Impressions: Slow Progress Procedures: Scalp Electrode Other Procedures: Stopb Pitocin Plan: Deliver- Section Informed Consent Obtain: Section Delivery; Risks, Benefits and Alternatives Discussed VITAL SIGNS: [id number] Vital Signs: Reviewed; Within Normal Limits EXAM: [id number] Dilatation: 4.0 Effacement: 70 Station: -3 Contractions: irregular MEMBRANES: [id number] Membranes Status: Ruptured Comments: Only 1 cm change in 6 hours, with no change in past 2.5 hours. head still not applied to cervix and frequent decels, deep and prolonged, even with irregular contractions and on Pitocin. Discussed risks of continuimng labor vs risks of C/S. Recommend proceeding with C/S. Questions answered; patient agrees. apricot packer to OR for Primary C/S. FETUS A: [id number] FHR Baseline: 130 Variability: Moderate 6-25bpm Accelerations: 15X15 Presentation: Vertex FETUS B: [id number] Signing Physician: Kimmy Bolanos MD Copies: ~ *Electronically Signed* 01/06/20 3245 KIMMY BOLANOS MD PATIENT NAME: JEFF ALICEA ILIA PROGRESS NOTE DATE OF : 78 PHYSICIAN: KIMMY BOLANOS MD RPT #: [id number] REPORT IS CONFIDENTIAL AND NOT TO BE RELEASED WITHOUT AUTHORIZATION
--- NOTE | 2020-01-06 19:49 | NUR ---
01/06/201948 Cordelia Miller PT ARRIVED TO ROOM 101 WITH AT BEDSIDE. PT RESTING IN BED AND DENIES CONCERNS. PT REPORTS BEING COLD AND WARM BLANKET GIVEN. VSS. IV INFUSING LR WITH 20 PIT, SITE WNL.
--- NOTE | 2020-01-07 12:55 | PR ---
[facility] [address] [facility] [place], [place] [address] Signed PP Progress Notes Datetime Report Generated by CPN: 01/07/2020 12:55 SUBJECTIVE: [id number] Pain: Within Normal Limits Nausea/Vomiting: Denies Flatus: No Bowel Movement: No Vital Signs: [id number] EXAM: Ongoing Cardiovascular: Normal Respiratory: Normal Abdomen/Uterus: Normal Lochia: Normal Extremities: Abnormal Incision: Normal Exam Comments: 1+ bilateral lower extremity pitting edema Fundus firm at U Incision dressing clean without strikethrough Leger still in place, excellent UOP IMPRESSION/PLAN/PROCEDURES: [id number] Impression: Normal Progression Plan: Continue Present Management Procedures: None Progress Notes: POD#1 s/p PLTCS for nonreassuring heart tones, failure to progress -Progressing well postop -Hgb 10.1 postop -No complaints Plan: Remove leger this afternoon, voiding trial Meet with institutional nutrition consultant Continue prophylactic heparin/SCDs while in bed Signing Physician: Kelly Henriquez DO Copies: *Electronically Signed* 01/07/20 9218 KELLY HENRIQUEZ DO PATIENT NAME: JEFF ALICEA PROGRESS NOTE DATE OF : 78 PHYSICIAN: KELLY HENRIQUEZ DO RPT #: [id number] REPORT IS CONFIDENTIAL AND NOT TO BE RELEASED WITHOUT AUTHORIZATION [address], [place] [address] Signed ~ *Electronically Signed* 01/07/20 1255 KELLY HENRIQUEZ DO PATIENT NAME: JEFF ALICEA PROGRESS NOTE DATE OF : 79 PHYSICIAN: KELLY HENRIQUEZ DO RPT #: [id number] REPORT IS CONFIDENTIAL AND NOT TO BE RELEASED WITHOUT AUTHORIZATION
--- NOTE | 2020-01-08 09:26 | PR ---
[facility] [address] [facility] [place], [place] [address] Signed PP Progress Notes Datetime Report Generated by CPN: 01/08/2020 09:25 SUBJECTIVE: [id number] Pain: Within Normal Limits Nausea/Vomiting: Denies Flatus: Yes Bowel Movement: Yes Vital Signs: [id number] Vital Signs: Reviewed; Within Normal Limits EXAM: Met Cardiovascular: Normal Respiratory: Normal Abdomen/Uterus: Normal Lochia: Normal Vulva/Perineum: Not Done Breasts: Not Done CVA Tenderness: Normal Extremities: Normal Incision: Normal Progress: Normal Exam Comments: Fundus firm U-2 nontender. Incision healing well w/ srinivasa in place IMPRESSION/PLAN/PROCEDURES: [id number] Impression: Normal Progression Plan: Discharge Procedures: None Progress Notes: Pt seen and examined. Doing well. Ambulating, voiding, and tolerating full diet. Pain and lochia minimal. well. No other concerns. Desires d/c home. b 10.1. Reviewed d/c teaching and instructions in detail. All questions answered. F/U Dr. Dsouza for staple removal early next week. Signing Physician: Andre Ortiz DO Copies: ~ *Electronically Signed* 01/08/20 0925 ANDRE ORTIZ DO PATIENT NAME: JEFF ALICEA ILIA PROGRESS NOTE DATE OF : 79 PHYSICIAN: ANDRE ORTIZ DO RPT #: [id number] REPORT IS CONFIDENTIAL AND NOT TO BE RELEASED WITHOUT AUTHORIZATION
== END 2020-01-08 12:55 | disposition home or self-care (01) | DRG 787 ==
LOC: FBC 00:05
PROVIDERS: ADMIT General Practice; ATTEND General Practice
PROC: 10H07YZ Insertion of Other Device into Products of Conception, Via Natural or Artificial Opening (ICD-10-PCS; 2020-01-06)
PROC: 10907ZC Drainage of Amniotic Fluid, Therapeutic from Products of Conception, Via Natural or Artificial Opening (ICD-10-PCS; 2020-01-06)
PROC: 3E0P7VZ Introduction of Hormone into Female Reproductive, Via Natural or Artificial Opening (ICD-10-PCS; 2020-01-06)
PROC: 00HU33Z Insertion of Infusion Device into Spinal Canal, Percutaneous Approach (ICD-10-PCS; 2020-01-06)
PROC: 3E0R3BZ Introduction of Anesthetic Agent into Spinal Canal, Percutaneous Approach (ICD-10-PCS; 2020-01-06)
PROC: 10D00Z1 Extraction of Products of Conception, Low, Open Approach (ICD-10-PCS; principal; 2020-01-06 18:18)
DX: O48.0 Post-term pregnancy (principal); O99.324 Drug use complicating childbirth; Z3A.40 40 weeks gestation of pregnancy; Z37.0 Single live birth; O76 Abnormality in fetal heart rate and rhythm complicating labor and delivery; O62.1 Secondary uterine inertia; O99.824 Streptococcus B carrier state complicating childbirth; O69.81X0 Labor and delivery complicated by cord around neck, without compression, not applicable or unspecified; O99.62 Diseases of the digestive system complicating childbirth; K59.00 Constipation, unspecified; O99.52 Diseases of the respiratory system complicating childbirth; J45.909 Unspecified asthma, uncomplicated; F12.980 Cannabis use, unspecified with anxiety disorder; O99.344 Other mental disorders complicating childbirth; F43.10 Post-traumatic stress disorder, unspecified; Z88.1 Allergy status to other antibiotic agents; Z79.899 Other long term (current) drug therapy
CPT/HCPCS: 01961; 36415; 85027; A9270; J0690; J1200; J1644; J2274; J2540; J2590; J2795